=== PATIENT | male | born 1950 | race Caucasian/White ===

== ENCOUNTER → 2016-12-04 | Day surgery (SDC) | payer BC ==
[2016-11-25 15:16] VITALS: Ht 182.9 cm; Wt 129.6 kg
[~2016-12-04] VITALS: Ht 182.9 cm; Wt 129.6 kg
[~2016-12-04] MED LIST: ASCO1CAP3 PO; ASPCH81X PO; ATOR-22 PO; IRBE1TAB50 PO; LIDOCAINE HCL 2% 2 ML VIAL (20MG/ML) ONE; METO50TA16 PO; PROPOFOL IV EMULSION 10 MG/ML 20 ML VIAL IV ONE; PSYL48.59 PO; SODIUM CHLORIDE 0.9% 500ML 500 ML IV ONE
--- NOTE | 2016-12-04 12:54 | Endo History and Physical ---
History & Physical Date of Service: Dec 04, 2016. Chief Complaint: History of colon polyps Referring Physician: Dr. Rosa History of Present Illness 66 yo CM who presents for colonoscopy secondary to history of colon polyps. Past Medical History High Cholesterol Past Surgical History Hx Cardiac Surgery: No Hx Internal Defibrillator: No Hx Pacemaker: No Hx Abdominal Surgery: Yes (INGUINAL HERNIA REPAIR) Hx of Implantable Prosthesis: No Hx Post-Op Nausea and Vomiting: No Hx Cancer Surgery: No Hx Thoracic Surgery: No Hx Orthopedic: No Hx Urinary Tract Surgery: No Family History None Social History Smoking Status: Never Smoker Hx Substance Use: No Hx Alcohol Use: Yes (OCCASSIONALLY) Allergies Coded Allergies: No Known Allergies (Verified , 11/25/16) Current Medications Reported Home Medications Medications Dose Route/Sig Max Daily Dose Days Date Category Metamucil (Psyllium) 48.57 % Pow 1 Dose PO TID 11/25/16 Reported Irbesartan 300 Mg Tab 1 Tab PO QAM 90 11/25/16 Reported Lopressor (Metoprolol Tartrate) 50 Mg Tab 50 Mg PO BID 11/25/16 Reported Aspirin Chewable (Aspirin) 81 Mg Chew 81 Mg PO QPM 11/26/15 Reported Vitamin C (Ascorbic Acid) 500 Mg Cap 1 Cap PO QPM 11/26/15 Reported Lipitor (Atorvastatin Calcium) 20 Mg Tab 20 Mg PO QPM 11/04/11 Reported Vital Signs Weight (Kilograms): 129.55 Height (Feet): 6 Height (Inches): 0 Physical Exam General Appearance: WD/WN, no apparent distress Respiratory/Chest: Auscultation: breath sounds normal Cardiovascular: Heart Auscultation: RRR Abdomen: Bowel Sounds: normal Inspection & Palpation: soft, non-distended, no tenderness, guarding & rebound Assessment and Plan Assessment: 66 yo CM who presents for colonoscopy secondary to history of colon polyps. Plan: Proceed with colonoscopy.
--- NOTE | 2016-12-04 14:12 | GI REPORT ---
Procedure Date: 12/04/2016 1:18 PM Procedure: Colonoscopy Indications: High risk colon cancer surveillance: Personal history of colonic polyps Medicines: Monitored Anesthesia Care Complications: No immediate complications. Estimated Blood Loss: Estimated blood loss: none. Procedure: Pre-Anesthesia Assessment: - Prior to the procedure, a History and Physical was performed, and patient medications and allergies were reviewed. The patient's tolerance of previous anesthesia was also reviewed. The risks and benefits of the procedure and the sedation options and risks were discussed with the patient. All questions were answered, and informed consent was obtained. Prior Anticoagulants: The patient has taken aspirin, last dose was 1 day prior to procedure. ASA Grade Assessment: II - A patient with mild systemic disease. After reviewing the risks and benefits, the patient was deemed in satisfactory condition to undergo the procedure. After I obtained informed consent, the scope was passed under direct vision. Throughout the procedure, the patient's blood pressure, pulse, and oxygen saturations were monitored continuously. The scope was introduced through the anus and advanced to the terminal ileum. The colonoscopy was performed without difficulty. The patient tolerated the procedure well. The quality of the bowel preparation was good. The terminal ileum, ileocecal valve, appendiceal orifice, and rectum were photographed. Findings: A 3 mm polyp was found in the cecum. The polyp was sessile. The polyp was removed with a hot snare. Resection was complete, but the polyp tissue was not retrieved. Four sessile polyps were found in the rectum, in the transverse colon and in the ascending colon. The polyps were 5 to 7 mm in size. These polyps were removed with a hot snare. Resection and retrieval were complete. Scattered small-mouthed diverticula were found in the entire colon. Impression: - One 3 mm polyp in the cecum, removed with a hot snare. Complete resection. Polyp tissue not retrieved. - Four 5 to 7 mm polyps in the rectum, in the transverse colon and in the ascending colon, removed with a hot snare. Resected and retrieved. - Diverticulosis in the entire examined colon. Recommendation: - Resume previous diet. - Continue present medications. - Repeat colonoscopy for surveillance based on pathology results. - Return to primary care physician as previously scheduled. Tomas Dickey DO 12/04/2016 2:12:06 PM This report has been signed electronically. Note Initiated On: 12/04/2016 1:18 PM
--- NOTE | 2016-12-04 14:14 | Discharge Instructions ---
Endoscopy Patient Instructions Date / Procedure(s) Performed Dec 04, 2016. Colonoscopy Allergy Information Coded Allergies: No Known Allergies (Verified , 11/25/16) Discharge Date / Findings Dec 04, 2016. Colon polyps Diverticulosis Medication Instructions OK to resume all medications today as prescribed. Reported Home Medications Medications Dose Route/Sig Max Daily Dose Days Date Category Metamucil (Psyllium) 48.57 % Pow 1 Dose PO TID 11/25/16 Reported Irbesartan 300 Mg Tab 1 Tab PO QAM 90 11/25/16 Reported Lopressor (Metoprolol Tartrate) 50 Mg Tab 50 Mg PO BID 11/25/16 Reported Aspirin Chewable (Aspirin) 81 Mg Chew 81 Mg PO QPM 11/26/15 Reported Vitamin C (Ascorbic Acid) 500 Mg Cap 1 Cap PO QPM 11/26/15 Reported Lipitor (Atorvastatin Calcium) 20 Mg Tab 20 Mg PO QPM 11/04/11 Reported Provider Instructions Activity Restrictions - No exercising or heavy lifting for 24 hours. - Do not drink alcohol the day of the procedure. - Do not drive a car or operate machinery until the day after the procedure. - Do not make any important decisions or sign important papers in 24 hours after the procedure. Following Day: - Return to full activity which may include returning to work/school. Diet Start your diet with liquids and light foods (jello, soup, juice, toast). Then eat your usual diet if not nauseated. Treatment For Common After Affects For mild abdominal pain, bloating, or excessive gas: - Rest - Eat lightly - Lie on right side Follow-Up Information Follow-up with Moe Rosa as scheduled Anesthesia Information What You Should Know You have had a procedure that required some medicine to reduce anxiety and discomfort. This treatment is called moderate sedation. After receiving the treatment, you may be sleepy, but you will be able to breathe on your own. The effects of the treatment may last for several hours. Follow these instructions along with Activity/Diet recommendations noted above: * Do NOT do anything where dizziness or clumsiness would be dangerous. * Rest quietly at home today, then you can be up and about tomorrow. * Have a responsible person stay with you the rest of today. * You may have had an I.V. today. If so, you may take the dressing off later today. Recommendations Call your doctor if: * Trouble breathing * Continuous vomiting for more than 24 hours * Temperature above 101 degrees * Severe abdominal pain or bloating * Pain not relieved by pain medicine ordered * There is increased drainage or redness from any incision * A large amount of rectal bleeding greater than 2-3 tablespoons. (If you had a polyp/s removed or have hemorrhoids, a small amount of blood - from the rectum is to be expected.) * You have any unanswered questions or concerns. IN THE EVENT OF A SERIOUS EMERGENCY, GO TO THE NEAREST EMERGENCY ROOM Your discharge instructions were prepared by provider Tomas Dickey. Patient Instructions Signature Page Milton Donovan Patient (or Guardian) Signature/Date: I have read and understand the instructions given to me by my caregivers. Caregiver/RN/Doctor Signature/Date: The above-named patient and/or guardian has received patient instructions on this date. + Original Patient Signature Page (only) stays with chart. Please make copy for patient.
--- NOTE | 2016-12-04 14:29 | Anesthesiology Progress Note ---
Anesthesia Post Op Note Date & Time Dec 04, 2016 at 14:29 Vital Signs Pain Intensity: 0 Vital Signs Past 12 Hours Date Time Temp Pulse Resp B/P Pulse Ox O2 Delivery O2 Flow Rate FiO2 12/04/16 14:22 61 18 167/92 98 Room Air 12/04/16 14:07 64 18 128/76 95 Room Air 12/04/16 13:00 36.7 66 16 167/90 97 Room Air Notes Mental Status: alert / awake / arousable, participated in evaluation Pt Amnestic to Procedure: Yes Nausea / Vomiting: adequately controlled Pain: adequately controlled Airway Patency, RR, SpO2: stable & adequate BP & HR: stable & adequate Hydration State: stable & adequate Anesthetic Complications: no major complications apparent
[2016-12-04 14:37] VITALS: BP 155/79; PULSE 62; O2SAT 96
== END | disposition home or self-care (01) ==
LOC: C.GI 12:26
PROVIDERS: ATTEND Internal Medicine
DX: Z12.11 Encounter for screening for malignant neoplasm of colon (principal); Z86.010 Personal history of colon polyps; D12.2 Benign neoplasm of ascending colon; D12.3 Benign neoplasm of transverse colon; K62.1 Rectal polyp; K57.30 Diverticulosis of large intestine without perforation or abscess without bleeding; E78.5 Hyperlipidemia, unspecified; Z98.890 Other specified postprocedural states; Z79.82 Long term (current) use of aspirin

== ENCOUNTER → 2017-01-27 | Outpatient (CLI) | payer BC ==
[~2017-01-27] MED LIST changes: -LIDOCAINE HCL 2% 2 ML VIAL (20MG/ML) ONE; -PROPOFOL IV EMULSION 10 MG/ML 20 ML VIAL IV ONE; -SODIUM CHLORIDE 0.9% 500ML 500 ML IV ONE
--- NOTE | 2017-01-27 12:13 | DIAGNOSTIC IMAGING REPORT ---
CHEST 2 VIEWS ROUTINE CLINICAL HISTORY: R06.02 Shortness of [id number] dyspnea COMPARISON STUDY: 08/28/2016 FINDINGS: Mild stable cardiomegaly. Mild chronic elevation right hemidiaphragm. Calcified granuloma left base unchanged. No acute infiltrate. IMPRESSION: Chronic change. No acute process. Electronically signed by: Barry Trent M.D. 01/27/2017 12:11 PM Dictated Date/Time: 01/27/2017 12:11 PM
== END | disposition home or self-care (01) ==
LOC: C.RAD1850 11:41
PROVIDERS: ATTEND Physician Assistant Medical
DX: R06.02 Shortness of breath (principal)

== ENCOUNTER → 2017-02-27 | Outpatient (CLI) | payer BC ==
[~2017-02-27] MED LIST changes: +REGADENOSON 0.4 MG/5 ML SYR ONE
--- NOTE | 2017-03-02 15:07 | MYOCARDIAL PERFUSION SCAN ---
ONE-DAY NUCLEAR MEDICINE TECHNETIUM-99M CARDIOLITE MYOCARDIAL PERFUSION SCAN CLINICAL HISTORY: The patient has experienced a chest pain syndrome and has a complete left bundle branch block. COMPARISON: None. TECHNIQUE: TECHNIQUE: For the stress portion of the study, 31.1 mCi of Technetium 99 m Cardiolite IV was injected at 1:07 p.m. on 02/27/2017. Thirty minutes following the injection, imaging of the heart was performed in multiple projections. For the rest portion of the study, 10.4 mCi of Technetium 99 m Cardiolite was injected IV at 11:25 a.m. One hour following the injection, imaging of the heart was performed in the same projections. For the stress portion of the study, 0.4 mg of Lexiscan was injected intravenously as per protocol. The patient tolerated the procedure well. He was hemodynamically stable without complaints at the end of the procedure. FINDINGS: The short axis, vertical long axis, and horizontal long axis images were reviewed in detail. There is a small defect in the proximal inferior wall present at both stress and rest. This area demonstrates normal systolic function suggesting diaphragmatic attenuation rather than an old myocardial infarction. There is no evidence of myocardial ischemia. The left ventricle demonstrates normal systolic function without wall motion abnormality. The left ventricular ejection fraction is calculated at 51%. IMPRESSION: 1. No scintigraphic evidence of a myocardial infarction or myocardial ischemia. 2. Diaphragmatic attenuation noted. 3. No Lexiscan induced chest discomfort. 4. No Lexiscan induced electrocardiogram changes over the baseline abnormality. 5. Normal left ventricular systolic function with an ejection fraction of 51% without wall motion abnormality.
== END | disposition home or self-care (01) ==
LOC: C.NUCL 10:57
PROVIDERS: ATTEND Physician Assistant Medical
DX: R07.9 Chest pain, unspecified (principal); R06.02 Shortness of breath

== ENCOUNTER → 2017-03-06 | Outpatient (CLI) | payer BC ==
[~2017-03-06] MED LIST changes: -REGADENOSON 0.4 MG/5 ML SYR ONE
[2017-03-06 16:38] LABS: BASO % 0.1 %; BASO ABS # 0.01 K/uL (0-0.2); COMPLETE YES; EOS % 1.5 %; HEMATOCRIT 43.1 % (42-52); IG% 0.1 %; LYMPH % 22.1 %; LYMPH ABS # 1.63 K/uL (1.2-3.4); MEAN CELL VOLUME 91.9 fL (80-100); MEAN CORPUSCULAR HEMOGLOBIN 30.9 pg (25-34); MEAN CORPUSCULAR HGB CONC 33.6 g/dl (32-36); MEAN PLATELET VOLUME 10.2 fL (7.4-10.4); MONO % 7.6 %; NEUT % 68.6 %; PLATELET COUNT 258 K/uL (130-400); RED BLOOD COUNT 4.69 M/uL (4.7-6.1); WHITE BLOOD COUNT 7.38 K/uL (4.8-10.8)
[2017-03-06 16:55] LABS: ALT/SGPT 37 U/L (12-78); AST/SGOT 20 U/L (15-37); BLOOD UREA NITROGEN 22 mg/dl (7-18); BUN/CREATININE RATIO 22.5 (10-20); CALCIUM 9.4 mg/dl (8.5-10.1); CARBON DIOXIDE 26 mmol/L (21-32); CHLORIDE 106 mmol/L (98-107); CHOLESTEROL 137 mg/dl (0-200); CREATININE 0.96 mg/dl (0.60-1.40); GLUCOSE 85 mg/dl (70-99); POTASSIUM 4.1 mmol/L (3.5-5.1); SODIUM 140 mmol/L (136-145)
[2017-03-06 16:58] LABS: ALB/GLOB RATIO 1.3 (0.9-2); ALKALINE PHOSPHATASE 60 U/L (45-117); CHOLESTEROL/HDL RATIO 2.9; HDL CHOLESTEROL 47 mg/dl; LDL CHOLESTEROL CALCULATED 69 mg/dl; TRIGLYCERIDES 106 mg/dl (0-150); VERY LOW DENSITY LIPOPROT CALC 21 mg/dl
[2017-03-07 07:27] LABS: ESTIMATED AVERAGE GLUCOSE 103 mg/dl; HA1C FLAG Normal (Normal)
== END | disposition home or self-care (01) ==
LOC: C.LABBFT 11:25
PROVIDERS: ATTEND Physician Assistant Medical
DX: R06.02 Shortness of breath (principal); R73.01 Impaired fasting glucose; I10 Essential (primary) hypertension; E78.5 Hyperlipidemia, unspecified

== ENCOUNTER → 2017-10-07 | Outpatient (CLI) | payer BC ==
[2017-10-07 12:33] LABS: BASO % 0.1 %; BASO ABS # 0.01 K/uL (0-0.2); COMPLETE YES; EOS % 2.3 %; HEMATOCRIT 43.8 % (42-52); IG% 0.1 %; LYMPH % 25.5 %; MEAN CELL VOLUME 92.6 fL (80-100); MEAN CORPUSCULAR HEMOGLOBIN 31.7 pg (25-34); MEAN CORPUSCULAR HGB CONC 34.2 g/dl (32-36); MONO % 8.8 %; NEUT % 63.2 %; PLATELET COUNT 249 K/uL (130-400); RED BLOOD COUNT 4.73 M/uL (4.7-6.1); WHITE BLOOD COUNT 7.83 K/uL (4.8-10.8)
[2017-10-07 12:47] LABS: ALT/SGPT 33 U/L (12-78); BLOOD UREA NITROGEN 18 mg/dl (7-18); BUN/CREATININE RATIO 15.6 (10-20); CARBON DIOXIDE 30 mmol/L (21-32); CHLORIDE 104 mmol/L (98-107); CHOLESTEROL 163 mg/dl (0-200); CREATININE 1.16 mg/dl (0.60-1.40); GLUCOSE 97 mg/dl (70-99); POTASSIUM 4.2 mmol/L (3.5-5.1); SODIUM 138 mmol/L (136-145); TRIGLYCERIDES 126 mg/dl (0-150); VERY LOW DENSITY LIPOPROT CALC 25 mg/dl
[2017-10-07 12:52] LABS: ALB/GLOB RATIO 1.2 (0.9-2); ALKALINE PHOSPHATASE 56 U/L (45-117); AST/SGOT 18 U/L (15-37); HDL CHOLESTEROL 54 mg/dl; LDL CHOLESTEROL CALCULATED 84 mg/dl
[2017-10-07 12:55] LABS: ESTIMATED AVERAGE GLUCOSE 108 mg/dl; HA1C FLAG Normal (Normal)
== END | disposition home or self-care (01) ==
LOC: C.LABBFT 09:04
PROVIDERS: ATTEND Internal Medicine
DX: Z12.5 Encounter for screening for malignant neoplasm of prostate (principal); N40.0 Benign prostatic hyperplasia without lower urinary tract symptoms; E78.5 Hyperlipidemia, unspecified; I10 Essential (primary) hypertension; R73.01 Impaired fasting glucose

== ENCOUNTER → 2018-01-19 | Outpatient (CLI) | payer BC | END | disposition home or self-care (01) | LOC: C.PATHSPEC 13:17 | PROVIDERS: ATTEND Plastic Surgery | DX: C44.519 Basal cell carcinoma of skin of other part of trunk (principal) ==

== ENCOUNTER 2023-12-10 11:12 | Inpatient (IN) ==
--- NOTE | 2023-12-10 11:24 | Emergency Department Note ---
Impression & Plan Acute upper gastrointestinal bleeding, Chest pain, Anemia, Elevated troponin I level, Frequent PVCs ED Provider Note NAME: SARAHY MARIE AGE: 73 SEX: M : 1950 ARRIVES VIA: Ambulance INFORMANT: Patient, EMS ED PROVIDER(S): Jaren Hollis DO CHIEF COMPLAINT: Chest pain HPI: The patient is a 73-year-old male who presented to the emergency department for an evaluation of multiple complaints. The patient's had dizziness and lightheadedness. He is also noticed some dark stool and some rectal bleeding. He started noticing some chest pain as well. The patient arrived via ambulance. He was treated with aspirin prior to arrival. The patient states at rest he has no complaints but when he starts to exert himself he does note some shortness of breath with exertion as well as chest pain. He denies having any lower extremity swelling or pain. He does note near syncope upon standing as well. ROS: See above HPI for pertinent positives & negatives. A total of 10 systems reviewed and were otherwise negative. PAST MEDICAL HISTORY: See Below PAST SURGICAL HISTORY: See Below FAMILY HISTORY: See Below SOCIAL HISTORY: See Below HOME MEDICATIONS: See Below ALLERGIES: See Below VITALS: See Below PHYSICAL EXAMINATION: GENERAL: Patient is awake alert in no acute distress patient is resting comfortably and showing no signs of anxiety EYES: The conjunctivae are clear. The pupils are round and reactive. EARS, NOSE, MOUTH AND THROAT: The nose is without any evidence of any deformity. NECK: The neck is nontender and supple. RESPIRATORY: Normal respiratory effort is noted there is no evidence of wheezing rhonchi or rales CARDIOVASCULAR: Ectopy was noted to auscultation. There is no definite murmur. GASTROINTESTINAL: The abdomen is soft. Abdomen is nontender. Rectal exam revealed dark stool which was strongly heme positive. PELVIS: The Pelvis is stable. No tenderness to palpation is noted. BACK: No midline tenderness or or step-off noted range of motion in flexion extension as well as rotation no signs of muscle spasm noted MUSCULOSKELETAL/EXTREMITIES: There is no evidence of gross deformity full range of motion is noted in the hips and shoulders. SKIN: There is no obvious evidence of any rash. There are no petechiae, pallor or cyanosis noted. NEUROLOGIC: Patient is awake alert and oriented x3 MEDICAL DECISION MAKING: The patient is a 73-year-old male who presented to the emergency department for an evaluation of chest pain. The patient describes exertional chest pain as well as shortness of breath. He was treated with a cardiac protocol by the EMS personnel prior to arrival. He did receive aspirin. During my evaluation the patient stated that he was having some dark stool. This was found to be strongly heme positive. I do feel the patient is most likely having some anemia which is causing his exertional chest pain as well as shortness of breath. I discussed patient's laboratory and radiographic studies with him. Abdominal exam was not consistent with an acute surgical abdomen. He was treated with Protonix as well as Pepcid in the emergency department. I discussed patient's condition with the on-call [facility] hospitalist. Likely the patient will require further inpatient management to evaluate the cause of his symptoms. Triage Nursing notes reviewed. Prior medical records reviewed Vital Signs: reviewed and remarkable for no significant abnormalities Differential diagnosis: Cardiac ischemia, aortic dissection, pulmonary embolism, pneumothorax, pneumonia, pericarditis, myocarditis, esophageal rupture, GERD, cholecystitis, pancreatitis, musculoskeletal, as well as other pathologies. ER treatment provided: See below Diagnostics interpreted by me: ECG: EKG was obtained in the emergency department. My interpretation is sinus rhythm at 90 bpm. Left bundle branch block pattern was noted. PVCs as well as fusion beats were noted. This was compared to a tracing from August 28, 2016. The left bundle branch block pattern is not new. EKG was obtained from the prehospital personnel. My interpretation is sinus rhythm at 101 bpm. PVCs were noted. Left bundle branch block pattern was noted. This compares similar to the tracing obtained in the emergency department. Cardiac Monitoring: An order was placed for continuous cardiac monitoring. The monitor shows a rate of 99 bpm with sinus rhythm and frequent PVCs. Laboratory studies: As stated above and show below. Imaging studies: See below. Radiographic imaging was reviewed by myself Consultation(s): I discussed this case with Dr. Donovan who [facility]. Past Med/Surg History Medical History Hyperlipidemia Hypertension Colon polyps HX, BENIGN Surgical History H/O colonoscopy (~12/04/16) repeat in 5 years History of hernia repair Family History Father Coronary heart disease CHF (congestive heart failure) Mother Brain cancer Sister Cancer Brother No problems noted. Son Myocardial infarction, Onset Age: 43 from AMI age 50 Cancer esophageal Denies family history of Ovarian cancer Prostate cancer Breast cancer Colorectal cancer Social History Smoking Status: Unknown if ever smoked Second Hand Exposure: Yes; Do You Dip or Chew Tobacco: No; Hx Alcohol Use: Yes Alcohol type: beer Alcohol Intake Frequency Comment: 2-3 beers per week Hx Substance Use: No Preferred Language: Mosotho Communication Ability: Effective Visual Impairment: No Limitations Hearing Ability: Normal Packing Line Operator Required: No Beliefs That Will Affect Care: None marital status: Current Living Situation: Alone current occupational status: retired Feels Safe at Home: Yes Childhood Exposure to Second-Hand Smoke: Yes Dental Care, Regularly: Yes Physical Activity Frequency: Daily Physical Activity Frequency Comment: walking or bicycle 60 minutes per workout Seatbelt Use: always Sunscreen Use: No Assistive Devices: Glasses Allergies Allergies Allergy/AdvReac Type Severity Reaction Status Date / Time No Known Allergies Allergy Verified 12/10/23 13:50 Home Meds Home Medications Medication Instructions Recorded Confirmed ascorbic acid (vitamin C) 100 mg 100 mg PO QAM 11/17/19 12/10/23 tablet multivitamin (Daily Multi-Vitamin 1 tab PO QAM 11/17/19 12/10/23 tablet) fluoride (sodium) 1.1 % dental 1 applic dental BID 09/09/23 12/10/23 paste acetaminophen-caffeine 500 mg-65 1 tab PO Q6H PRN Headache 12/10/23 12/10/23 mg tablet Previous Rx's Medication Instructions Recorded atorvastatin 20 mg tablet 20 mg PO QPM #90 tabs 04/10/23 irbesartan 300 mg tablet 300 mg PO QAM #90 tabs 04/10/23 metoprolol tartrate 50 mg tablet 50 mg PO BID #180 tabs 04/10/23 Results & Data (ED) Vital Signs Vital Signs - 24 hr 12/10/23 11:16 12/10/23 11:18 12/10/23 11:51 Temperature 36.7 C Temperature Source Oral Pulse Rate 95 H 96 H 101 H Pulse Rate [Apical] Respiratory Rate 16 20 Respiratory Effort / Characteristics Non-Labored Spontaneous Respiratory Depth Normal Respiratory Pattern Regular Blood Pressure 117/87 Blood Pressure [Right Arm] Blood Pressure Mean 97 Blood Pressure Mean [Right Arm] Blood Pressure Position Lying Blood Pressure Position [Right Arm] Pulse Oximetry 99 99 Oxygen Delivery Method Room Air Room Air Sepsis Recent Fever Within 48 Hours No Sepsis New/Unexplained Change in Mental Status No Sepsis Action Taken by Nursing No Action Required 12/10/23 12:09 12/10/23 12:13 Temperature Temperature Source Pulse Rate Pulse Rate [Apical] 99 H Respiratory Rate 20 Respiratory Effort / Characteristics Respiratory Depth Respiratory Pattern Blood Pressure Blood Pressure [Right Arm] 127/79 Blood Pressure Mean Blood Pressure Mean [Right Arm] 95 Blood Pressure Position Blood Pressure Position [Right Arm] Sitting Pulse Oximetry 98 96 Oxygen Delivery Method Room Air Room Air Sepsis Recent Fever Within 48 Hours Sepsis New/Unexplained Change in Mental Status Sepsis Action Taken by Fpc Medications Current Medication List: was personally reviewed by me Laboratory Data Attestation: I reviewed the patient's lab results. 12/10/23 11:32 12/10/23 11:32 Lab Results 12/10/23 12/10/23 12/10/23 Range/Units 11:32 13:46 13:55 WBC 16.61 H (4.8-10.8) K/ul RBC 3.41 L (4.70-6.10) M/uL Hgb 10.7 L (14.0-18.0) g/dl Hct 31.3 L (42.0-52.0) % MCV 91.8 (80.0-100.0) fL MCH 31.4 (25.0-34.0) pg MCHC 34.2 (32.0-36.0) g/dL RDW Std Deviation 43.2 (36.4-46.3) fL RDW Coeff of [place] 13.1 (11.5-14.5) % Plt Count 256 (130-400) K/uL MPV 10.2 (9.4-12.4) fL Immature Gran % (Auto) 0.7 % Neut % (Auto) 87.2 % Lymph % (Auto) 7.8 % [place] % (Auto) 4.1 % Eos % (Auto) 0.0 % Baso % (Auto) 0.2 % Neut # (Auto) 14.49 H (1.40-6.50) K/uL Lymph # (Auto) 1.29 (1.20-3.40) K/uL [place] # (Auto) 0.68 H (0.11-0.59) K/uL Eos # (Auto) 0.00 (0.00-0.50) K/uL Baso # (Auto) 0.04 (0.00-0.20) K/uL Immature Gran # (Auto) 0.11 (0.01-0.20) K/uL PT 11.3 (9.0-12.0) Seconds INR 1.0 (0.9-1.1) APTT 21 (21-31) Seconds PTT Ratio 0.7 Sodium 137 (136-145) mmol/L Potassium 4.3 (3.5-5.1) mmol/L Chloride 106 (98-107) mmol/L Carbon Dioxide 22 (21-32) mmol/L Anion Gap 9 (3-11) BUN 56 H (6-23) mg/dl Creatinine 1.23 (0.6-1.4) mg/dl Est Cr Clr Drug Dosing 71.6 ml/min Est GFR ( Amer) 66.6 ml/min Est GFR (Non-Af Amer) 57.5 ml/min BUN/Creatinine Ratio 45.5 H (10-20) Glucose 159 H (70-99(Fasting)) mg/dl Calcium 8.9 (8.6-10.3) mg/dl Magnesium 2.0 (1.7-2.4) mg/dl Total Bilirubin 0.7 (0.2-1.0) mg/dl AST 16 (13-39) U/L ALT 17 (7-52) U/L Alkaline Phosphatase 48 (34-104) U/L Troponin I High Sens 21.1 H 22.7 H (0-20) pg/ml Total Protein 6.4 (6.0-8.3) gm/dl Albumin 4.1 (3.4-5.0) gm/dl Globulin 2.3 L (2.5-4.0) gm/dl Albumin/Globulin Ratio 1.8 (0.9-2) Lipase 26 (11-82) U/L Urine Color Yellow Urine Appearance Clear (Clear) Urine pH 5.0 (4.5-7.5) Ur Specific [place] 1.024 (1.000-1.030) Urine Protein Negative (Negative) Urine Glucose (UA) Negative (Negative) Urine Ketones Trace H (Negative) Urine Blood Negative (Negative) Urine Nitrite Negative (Negative) Urine Bilirubin Negative (Negative) Urine Urobilinogen Negative (Negative) Ur Leukocyte Esterase 1+ H (Negative) Urine WBC (Auto) 1-5 (0-5) /hpf Urine RBC (Auto) 0-4 (0-4) /hpf U Hyaline Cast (Auto) 1-5 (0-5) /lpf U Epithel Cells (Auto) 10-20 H (0-5) /lpf Urine Bacteria (Auto) Negative (Negative) Blood Type A Positive Antibody Screen NEGATIVE Administered Medications Discontinued Medications Pantoprazole Sodium 40 mg/ (Syringe) 10 mls @ 5 mls/min IV NOW ONE Stop: 12/10/23 11:52 Last Admin: 12/10/23 12:02 Dose: 5 mls/min Documented By: CPB Famotidine (Pepcid 20mg Iv Push) 20 mg in 5 mls @ 2.5 mls/min IV NOW STA Stop: 12/10/23 11:52 Last Admin: 12/10/23 12:02 Dose: 2.5 mls/min Documented By: CPB Imaging Data Attestation: I personally reviewed and interpreted this imaging study as follows: My Impression: 1 view chest x-ray was obtained in the emergency department. My interpretation is no free air, final report below. Radiologist's Impression: Chest X-Ray 12/10/23 12:08 SINGLE VIEW CHEST CLINICAL HISTORY: Atypical chest pain. FINDINGS: An AP, portable, upright chest radiograph is compared to study dated 08/28/2016. The heart is enlarged. The pulmonary vasculature is noncongested. Chronic interstitial thickening is similar to previous. There is chronic elevation of the right hemidiaphragm with mild bibasilar scarring/atelectasis. A calcified granuloma is seen in the left lower lung. No airspace consolidation or large pleural effusion is identified. No pneumothorax is seen. The skeletal structures are osteopenic. The bony thorax is grossly intact. IMPRESSION: Cardiomegaly with no active disease in the chest. ACT 112: Negative or not required by law. Electronically signed by: Eugenio Frias M.D. 12/10/2023 12:41 PM Discharge Plan Visit Data Chief Complaint: Chest Pain Stated Complaint: SOB ED Provider: Jaren Hollis Discharge Problem: Acute upper gastrointestinal bleeding, Chest pain, Anemia, Elevated troponin I level, Frequent PVCs Patient Disposition: Being Evaluated by Hospitalist Forms Stand Alone Forms: [facility] Prescriptions Prescriptions: No Action atorvastatin 20 mg tablet 20 mg PO QPM Qty: 90 3RF irbesartan 300 mg tablet 300 mg PO QAM Qty: 90 3RF metoprolol tartrate 50 mg tablet 50 mg PO BID Qty: 180 3RF fluoride (sodium) 1.1 % paste 1 applic dental BID multivitamin [Daily Multi-Vitamin] Tablet 1 tab PO QAM ascorbic acid (vitamin C) 100 mg tablet 100 mg PO QAM Headache Relief (acetam-caff) 500-65 mg Tablet 1 tab PO Q6H PRN (Reason: Headache) Referrals Referrals: Art Alatorre DO [Primary Care Provider] - Discharge Problem: Chest pain Qualifiers: Chest pain type: unspecified Qualified Code(s): R07.9 - Chest pain, unspecified Anemia Qualifiers: Anemia type: unspecified type Qualified Code(s): D64.9 - Anemia, unspecified
[2023-12-10 11:53] LABS: Basophils # (auto) 0.04 K/uL (0.00-0.20); Basophils % (auto) 0.2 %; Hematocrit (blood only) 31.3 % (42.0-52.0); Hemoglobin 10.7 g/dl (14.0-18.0); Immature Granulocytes # (auto) 0.11 K/uL (0.01-0.20); Immature Granulocytes % (auto) 0.7 %; Lymphocytes # (auto) 1.29 K/uL (1.20-3.40); Lymphocytes % (auto) 7.8 %; Mean Corpuscular Hemoglobin 31.4 pg (25.0-34.0); Mean Corpuscular Hgb Conc 34.2 g/dL (32.0-36.0); Mean Corpuscular Volume 91.8 fL (80.0-100.0); Mean Platelet Volume 10.2 fL (9.4-12.4); Monocytes # (auto) 0.68 K/uL (0.11-0.59); Monocytes % (auto) 4.1 %; Neutrophils # (auto) 14.49 K/uL (1.40-6.50); Neutrophils % (auto) 87.2 %; Platelet Count 256 K/uL (130-400); RDW Coefficient of Variation 13.1 % (11.5-14.5); RDW Standard Deviation 43.2 fL (36.4-46.3); Red Blood Count 3.41 M/uL (4.70-6.10); White Blood Count 16.61 K/ul (4.8-10.8)
[2023-12-10] MEDS: FAMOTIDINE 20MG IV PUSH 20 MG/5 ML SYR IV STA (12:02)
[2023-12-10] MEDS: PANTOprazole 40 MG in SYRINGE 0 ML IV ONE ×2 (12:02→15:54)
[2023-12-10 12:16] LABS: Albumin Globulin Ratio 1.8 (0.9-2); Albumin Level 4.1 gm/dl (3.4-5.0); BUN Creatinine Ratio 45.5 (10-20); Bilirubin,Total 0.7 mg/dl (0.2-1.0); Calcium 8.9 mg/dl (8.6-10.3); Creatinine Clr Calc Pharmacy 71.6 ml/min; Est GFR (African American) 66.6 ml/min; Est GFR (Non-African American) 57.5 ml/min; Globulin 2.3 gm/dl (2.5-4.0); Potassium 4.3 mmol/L (3.5-5.1); Total Protein 6.4 gm/dl (6.0-8.3)
[2023-12-10 12:19] LABS: Troponin I High Sensitivity 21.1 pg/ml (0-20)
[2023-12-10 12:22] LABS: Partial Thromboplastin Ratio 0.7; Partial Thromboplastin Time 21 Seconds (21-31); Prothrombin Time 11.3 Seconds (9.0-12.0)
--- NOTE | 2023-12-10 12:42 | XRay Report ---
SINGLE VIEW CHEST CLINICAL HISTORY: Atypical chest pain. FINDINGS: An AP, portable, upright chest radiograph is compared to study dated 08/28/2016. The heart is enlarged. The pulmonary vasculature is noncongested. Chronic interstitial thickening is similar to previous. There is chronic elevation of the right hemidiaphragm with mild bibasilar scarring/atelect asis. A calcified granuloma is seen in the left lower lung. No airspace consolidation or large pleura l effusion is identified. No pneumothorax is seen. The skeletal structures are osteopenic. The bony t horax is grossly intact. IMPRESSION: Cardiomegaly with no active disease in the chest. ACT 112: Negative or not required by law. Electronically signed by: Eugenio Frias M.D. 12/10/2023 12:41 PM
--- NOTE | 2023-12-10 13:53 | Electrocardiogram Report ---
Test Reason : Blood Pressure : / mmHG Vent. Rate : 098 BPM Atrial Rate : 098 BPM P-R Int : 154 ms QRS Dur : 148 ms QT Int : 388 ms P-R-T Axes : 054 -48 124 degrees QTc Int : 495 ms Sinus rhythm with Premature supraventricular complexes and Premature ventricular complexes or Fusion complexes Left axis deviation Left bundle branch block Abnormal ECG When compared with ECG of 28-AUG-2016 11:36, Fusion complexes are now Present Premature ventricular complexes are now Present Premature supraventricular complexes are now Present Confirmed by Tyrel Abdalla ([id number]) on 12/10/2023 1:53:27 PM Referred By: REFERRED SELF Confirmed By:Tyrel Abdalla
[2023-12-10 14:06] LABS: Appearance Urine Clear (Clear); Bacteria Urine Automated Negative (Negative); Bilirubin Urine Negative (Negative); Blood Urine Negative (Negative); Color Urine Yellow; Glucose Urine UA Negative (Negative); Ketones Urine Trace (Negative); Leukocyte Esterase Urine 1+ (Negative); Nitrite Urine Negative (Negative); Protein Urine Negative (Negative); RBC Urine Automated 0-4 /hpf (0-4); Specific Gravity Urine 1.024 (1.000-1.030); Urobilinogen Urine Negative (Negative)
--- NOTE | 2023-12-10 14:21 | History & Physical Report ---
Date of Service December 10, 2023 Assessment & Plan (1) Acute upper gastrointestinal bleeding: Plan: Suspected based on melena and new anemia Pantoprazole 40 mg IV BID NPO Consult gastroenterology (2) Acute blood loss anemia: Plan: H&H q.6 hourly Transfuse < 7 (3) Paroxysmal atrial fibrillation: Plan: New onset No anticoagulation due to concurrent acute GI bleed Rate control with metoprolol 5 mg IV now and then restart his usual metoprolol tartrate which he missed this morning TSH and TTE in AM (4) Non-sustained ventricular tachycardia: Plan: TTE (5) Hyperlipidemia: Plan: Continue atorvastatin (6) Hypertension: Plan: Hold irbesartan in setting of GI bleed Continue metoprolol for rate control Plan VTE Prophyalxis - chemical contraindicated Diet - NPO Disposition - admit to med/tele Admission and Anticipated Discharge Date Admission Date: Dec 10, 2023 History of Present Illness Chief Complaint: Melena Primary Care Provider: Art Alatorre DO Milton Donovan is a 73 year old male who presents to the ER with dark diarrhea and red blood. Started yesterday but more today with associated lightheadedness. No prior GI bleed / ulcer. Reports having heartburn about once a month but doesn't take anything for this. Took ibuprofen a few days ago but arhtritis pain but nothing regularly. Taking a headache pill from [facility] which is suspected to contain aspirin and caffeine every few days. He reports a mild chest pressure when EMS arrived and he was given aspirin by EMS. No recent change in diet. He missed his medications this morning. While being admitted his rhythm changed to have runs of non sustained ventricular tachycardia and atrial fibrillation with rapid ventricular rate. He denied any significant symptoms in these rhythms. Allergies Allergy/AdvReac Type Severity Reaction Status Date / Time No Known Allergies Allergy Verified 12/10/23 13:50 Home Medications Medication Instructions Recorded Confirmed Type ascorbic acid (vitamin C) 100 mg 100 mg PO QAM 11/17/19 12/10/23 History tablet multivitamin (Daily Multi-Vitamin 1 tab PO QAM 11/17/19 12/10/23 History tablet) atorvastatin 20 mg tablet 20 mg PO QPM #90 tabs 04/10/23 12/10/23 Rx irbesartan 300 mg tablet 300 mg PO QAM #90 tabs 04/10/23 12/10/23 Rx metoprolol tartrate 50 mg tablet 50 mg PO BID #180 tabs 04/10/23 12/10/23 Rx fluoride (sodium) 1.1 % dental 1 applic dental BID 09/09/23 12/10/23 History paste acetaminophen-caffeine 500 mg-65 1 tab PO Q6H PRN Headache 12/10/23 12/10/23 History mg tablet Past Med/Surg History Medical History Hyperlipidemia Hypertension Colon polyps HX, BENIGN Surgical History H/O colonoscopy (~12/04/16) repeat in 5 years History of hernia repair Family History Father Coronary heart disease CHF (congestive heart failure) Mother Brain cancer Sister Cancer Brother No problems noted. Son Myocardial infarction, Onset Age: 43 from AMI age 50 Cancer esophageal Denies family history of Ovarian cancer Prostate cancer Breast cancer Colorectal cancer Social History Smoking Status: Never smoker Second Hand Exposure: No; Do You Dip or Chew Tobacco: No; Tobacco Cessation Education Requested by Patient: No Hx Alcohol Use: Yes Alcohol type: beer Alcohol Intake Frequency Comment: 2-3 beers per week Hx Substance Use: No Preferred Language: Lithuanian Communication Ability: Effective Visual Impairment: No Limitations Hearing Ability: Normal Metal Fabricator Helper Required: No Beliefs That Will Affect Care: None marital status: Current Living Situation: Alone current occupational status: retired Other Information That Helps Us Care for You: No Feels Safe at Home: Yes Safety Concerns: Feels Safe At This Time Childhood Exposure to Second-Hand Smoke: Yes Dental Care, Regularly: Yes Physical Activity Frequency: Daily Physical Activity Frequency Comment: walking or bicycle 60 minutes per workout Seatbelt Use: always Sunscreen Use: No Assistive Devices: Glasses Review of Systems Review of Systems: All systems reviewed & are unremarkable except as noted in HPI & below Physical Exam Constitutional: WD/WN, vitals as above Eyes: PERRL, conjunctivae normal, anicteric sclerae ENMT: external ear and nose normal, oropharynx normal Respiratory: normal respiratory effort, lungs clear to auscultation Cardiovascular: RRR, no murmur, no edema Gastrointestinal (Abdomen): normal bowel sounds, soft, nontender, no hepat osplenomegaly Musculoskeletal: no cyanosis or clubbing, extremities motor strength 5/5 Skin: no rashes, warm and dry Neurologic: moves all extremities and awake; not confused Psychiatric: A+Ox3, euthymic affect Results & Data Results & Data Vital Signs (Past 12 Hours) Vital Signs Temp Pulse Pulse Resp BP BP Pulse Ox 12/10/23 12:13 99 H 20 127/79 96 12/10/23 12:09 98 12/10/23 11:51 101 H 12/10/23 11:18 96 H 20 99 12/10/23 11:16 36.7 C 95 H 16 117/87 99 O2 Del Method 12/10/23 12:13 Room Air 12/10/23 12:09 Room Air 12/10/23 11:51 12/10/23 11:18 Room Air 12/10/23 11:16 Room Air Laboratory Results Abnormal lab results 12/10/23 12/10/23 Range/Units 11:32 13:46 WBC 16.61 H (4.8-10.8) K/ul RBC 3.41 L (4.70-6.10) M/uL Hgb 10.7 L (14.0-18.0) g/dl Hct 31.3 L (42.0-52.0) % Neut # (Auto) 14.49 H (1.40-6.50) K/uL [place] # (Auto) 0.68 H (0.11-0.59) K/uL BUN 56 H (6-23) mg/dl BUN/Creatinine Ratio 45.5 H (10-20) Glucose 159 H (70-99(Fasting)) mg/dl Troponin I High Sens 21.1 H (0-20) pg/ml Globulin 2.3 L (2.5-4.0) gm/dl Urine Ketones Trace H (Negative) Ur Leukocyte Esterase 1+ H (Negative) U Epithel Cells (Auto) 10-20 H (0-5) /lpf Diagnostic Findings SINGLE VIEW CHEST CLINICAL HISTORY: Atypical chest pain. FINDINGS: An AP, portable, upright chest radiograph is compared to study dated 08/28/2016. The heart is enlarged. The pulmonary vasculature is noncongested. Chronic interstitial thickening is similar to previous. There is chronic elevation of the right hemidiaphragm with mild bibasilar scarring/atelectasis. A calcified granuloma is seen in the left lower lung. No airspace consolidation or large pleural effusion is identified. No pneumothorax is seen. The skeletal structures are osteopenic. The bony thorax is grossly intact. IMPRESSION: Cardiomegaly with no active disease in the chest. Medications Administered ER medications given: Pantoprazole 40 mg IV Famotidine 20 mg IV ECG Rate (beats per minute): 98 Rhythm: normal sinus Findings: + LBBB and + PVC Comparison ECG Date: from (August 28, 2016) Change: the following changes noted (PVCs and premature supraventricular complexes now presents, left bundle branch block is old) Code Status & VTE Plan Code Status Full VTE Prophylaxis Plan VTE Prophylaxis will be ordered: No PG Care Time/CCT Total # of Minutes Spent Total Time Spent with Patient: Total time spent is greater than 50% in coordination of care (as documented) at patient's floor/unit and/or counseling patient: Coding Level of Care Code 10145 INT INP/OBS CARE 3/75MIN Diagnoses Acute upper gastrointestinal bleeding K92.2 Acute blood loss anemia D62 Paroxysmal atrial fibrillation I48.0 Non-sustained ventricular tachycardia I47.29 Hyperlipidemia E78.5 Hypertension I10
[2023-12-10] MEDS: METOPROLOL TARTRATE 1 MG/ML VIAL IV STA (17:21)
[2023-12-10] MEDS: METOPROLOL TARTRATE 1 MG/ML VIAL IV ONE (17:21)
[2023-12-10] MEDS: METOPROLOL TARTRATE 50 MG TAB PO STA (17:36)
[2023-12-10] MEDS: ACETAMINOPHEN 1,000 MG/100 ML VIAL IV STA (17:47)
[2023-12-10 18:09] LABS: Hematocrit (blood only) 27.1 % (42.0-52.0); Hemoglobin 9.6 g/dl (14.0-18.0)
[2023-12-10] MEDS: LACTATED RINGER'S 1,000 ML IV SCH (18:36)
[2023-12-10] MEDS: METOPROLOL TARTRATE 50 MG TAB PO SCH (21:55)
[2023-12-10] MEDS: ATORVASTATIN 20 MG TAB PO SCH (21:55)
[2023-12-10] MEDS: PANTOprazole 40 MG in SYRINGE 0 ML IV SCH (21:55)
[2023-12-11 01:07] LABS: Hemoglobin 8.4 g/dl (14.0-18.0)
[2023-12-11 06:38] LABS: Basophils # (auto) 0.03 K/uL (0.00-0.20); Basophils % (auto) 0.2 %; Eosinophils # (auto) 0.01 K/uL (0.00-0.50); Eosinophils % (auto) 0.1 %; Hematocrit (blood only) 21.9 % (42.0-52.0); Hemoglobin 7.3 g/dl (14.0-18.0); Immature Granulocytes # (auto) 0.08 K/uL (0.01-0.20); Immature Granulocytes % (auto) 0.6 %; Lymphocytes # (auto) 2.06 K/uL (1.20-3.40); Lymphocytes % (auto) 14.7 %; Mean Corpuscular Hemoglobin 31.1 pg (25.0-34.0); Mean Corpuscular Hgb Conc 33.3 g/dL (32.0-36.0); Mean Corpuscular Volume 93.2 fL (80.0-100.0); Mean Platelet Volume 10.4 fL (9.4-12.4); Monocytes # (auto) 1.04 K/uL (0.11-0.59); Monocytes % (auto) 7.4 %; Neutrophils # (auto) 10.84 K/uL (1.40-6.50); Nucleated RBC # (auto) 0.02 K/uL (0.00-0.12); Nucleated RBC % (auto) 0.1 %; Platelet Count 209 K/uL (130-400); RDW Coefficient of Variation 13.5 % (11.5-14.5); RDW Standard Deviation 44.4 fL (36.4-46.3); Red Blood Count 2.35 M/uL (4.70-6.10); White Blood Count 14.06 K/ul (4.8-10.8)
[2023-12-11 06:51] LABS: BUN Creatinine Ratio 41.2 (10-20); Calcium 8.4 mg/dl (8.6-10.3); Creatinine Clr Calc Pharmacy 72.1 ml/min; Est GFR (African American) 69.3 ml/min; Est GFR (Non-African American) 59.8 ml/min; Potassium 4.5 mmol/L (3.5-5.1)
[2023-12-11 07:02] LABS: Thyroid Stimulating Hormone 2.281 uIu/ml (0.300-4.500)
[2023-12-11 07:38] LABS: Polychromasia 1+
[2023-12-11] MEDS: ACETAMINOPHEN 1,000 MG/100 ML VIAL IV PRN (07:40)
[2023-12-11] MEDS: PERFLUTREN LIPID MICROSPHERE (DEFINITY) IV ONE (09:00)
--- NOTE | 2023-12-11 10:32 | Gastrointestinal Consultation ---
Date of Consultation December 11, 2023 Assessment & Plan (1) Anemia: Discussed case with Dr. Garvey who advised on plan. - set patient up for an EGD today to evaluate. keep NPO. risks/benefits of EGD discussed with the patient and he wishes to proceed. - avoid nsaid use. - continue with protonix 40mg bid. - follow hgb/hct and transfuse as needed. Supervising Physician Co-Signing Physician Notes I saw the patient and agree with the findings as documented by YURIDIA Aquino History of Present Illness Reason for Consultation: Acute blood loss anemia, GIB Requesting Physician: Leonidas Donovan MD Attending Physician: Paco Lim History of Present Illness Patient is a 73 year old male who presented to the ED yesterday with complaints of dizziness and lightheadedness. He tells me that about 2 days ago he noticed a change in his bowels where he was having loose, dark stools. He denies any nausea, vomiting, heartburn, abdominal pain. Upon evaluation in the ED his hgb was 10.7 and since he has been here his hgb has dropped to 7.3. In the ED he had a rectal exam with heme positive stools. he tells me that since admission he has had 6-7 more dark stools. He tells me that he had used some ibuprofen a few weeks ago for hip pain but that he does not typically use nsaids. he denies any chest pain or shortness of breath. he denies having had an EGD in the past. Last colonoscopy in 2021 shown tubular adenoma colon polyp, internal hemorrhoids, and diverticulosis. Allergies Allergy/AdvReac Type Severity Reaction Status Date / Time No Known Allergies Allergy Verified 12/10/23 13:50 Home Medications Medication Instructions Recorded Confirmed Type ascorbic acid (vitamin C) 100 mg 100 mg PO QAM 11/17/19 12/10/23 History tablet multivitamin (Daily Multi-Vitamin 1 tab PO QAM 11/17/19 12/10/23 History tablet) atorvastatin 20 mg tablet 20 mg PO QPM #90 tabs 04/10/23 12/10/23 Rx irbesartan 300 mg tablet 300 mg PO QAM #90 tabs 04/10/23 12/10/23 Rx metoprolol tartrate 50 mg tablet 50 mg PO BID #180 tabs 04/10/23 12/10/23 Rx fluoride (sodium) 1.1 % dental 1 applic dental BID 09/09/23 12/10/23 History paste acetaminophen-caffeine 500 mg-65 1 tab PO Q6H PRN Headache 12/10/23 12/10/23 History mg tablet Patient History Medical History Hyperlipidemia Hypertension Colon polyps HX, BENIGN Surgical History H/O colonoscopy (~12/04/16) repeat in 5 years History of hernia repair Family History Father Coronary heart disease CHF (congestive heart failure) Mother Brain cancer Sister Cancer Brother No problems noted. Son Myocardial infarction, Onset Age: 43 from AMI age 50 Cancer esophageal Denies family history of Ovarian cancer Prostate cancer Breast cancer Colorectal cancer Social History Smoking Status: Never smoker Second Hand Exposure: No; Do You Dip or Chew Tobacco: No; Tobacco Cessation Education Requested by Patient: No Hx Alcohol Use: Yes Alcohol type: beer Alcohol Intake Frequency Comment: 2-3 beers per week Hx Substance Use: No Preferred Language: Russian Communication Ability: Effective Visual Impairment: No Limitations Hearing Ability: Normal Line O Scribe Operator Required: No Beliefs That Will Affect Care: None marital status: Current Living Situation: Alone current occupational status: retired Other Information That Helps Us Care for You: No Feels Safe at Home: Yes Safety Concerns: Feels Safe At This Time Childhood Exposure to Second-Hand Smoke: Yes Dental Care, Regularly: Yes Physical Activity Frequency: Daily Physical Activity Frequency Comment: walking or bicycle 60 minutes per workout Seatbelt Use: always Sunscreen Use: No Assistive Devices: Glasses Review of Systems Review of Systems: All systems reviewed & are unremarkable except as noted in HPI & below Physical Exam Constitutional: WD/WN, vitals as above Respiratory: normal respiratory effort, lungs clear to auscultation Cardiovascular: RRR, no murmur, no edema Gastrointestinal (Abdomen): normal bowel sounds, soft, nontender, no hepatosplenomegaly Skin: no rashes, warm and dry Psychiatric: Orientation: alert and oriented x 3 Affect: euthymic affect Results & Data Vital Signs (Past 12 Hours) Vital Signs Temp Pulse Pulse Pulse Resp BP BP 12/11/23 08:32 98.2 F 92 H 16 116/69 12/11/23 03:41 98.1 F 85 20 114/70 12/10/23 23:59 83 12/10/23 23:58 79 12/10/23 23:10 98.8 F 76 18 94/60 L Pulse Ox O2 Del Method 12/11/23 08:32 97 Room Air 12/11/23 03:41 95 Room Air 12/10/23 23:59 12/10/23 23:58 12/10/23 23:10 96 Room Air PG Care Time/CCT Total # of Minutes Spent Total Time Spent with Patient: Total time spent is greater than 50% in coordination of care (as documented) at patient's floor/unit and/or counseling patient: Coding Level of Care Code 28354 INT INP/OBS CARE 2/55MIN Diagnoses Anemia D64.9 Anemia type: unspecified type (1) Anemia Anemia type: unspecified type Qualified Code(s): D64.9 - Anemia, unspecified
--- NOTE | 2023-12-11 10:49 | Electrocardiogram Report ---
Test Reason : Blood Pressure : / mmHG Vent. Rate : 134 BPM Atrial Rate : 000 BPM P-R Int : 000 ms QRS Dur : 140 ms QT Int : 308 ms P-R-T Axes : 000 -41 130 degrees QTc Int : 459 ms Atrial fibrillation with rapid ventricular response with premature ventricular or aberrantly conducte d complexes Left axis deviation Left bundle branch block Abnormal ECG When compared with ECG of 10-DEC-2023 11:18, Atrial fibrillation has replaced Sinus rhythm HR has increased by 36 bpm Confirmed by Tyrel Abdalla ([id number]) on 12/11/2023 10:48:29 AM Referred By: REFERRED SELF Confirmed By:Tyrel Abdalla
--- NOTE | 2023-12-11 11:00 | Electrocardiogram Report ---
Test Reason : Blood Pressure : / mmHG Vent. Rate : 074 BPM Atrial Rate : 074 BPM P-R Int : 158 ms QRS Dur : 146 ms QT Int : 436 ms P-R-T Axes : 043 -43 130 degrees QTc Int : 483 ms Normal sinus rhythm Left axis deviation Left bundle branch block Abnormal ECG When compared with ECG of 10-DEC-2023 17:16, Sinus rhythm has replaced Atrial fibrillation Vent. rate has decreased BY 60 BPM Confirmed by Tyrel Abdalla ([id number]) on 12/11/2023 11:00:13 AM Referred By: REFERRED SELF Confirmed By:Tyrel Abdalla
--- NOTE | 2023-12-11 12:16 | XCELERA ---
[id number]
--- NOTE | 2023-12-11 13:22 | Anesthesiology Consultation ---
Date of Service December 11, 2023 Assessment & Plan Chart Review Chart Review: Acceptable Risk for Surgery and Patient NOT seen in Pre Admission Testing Consults Requested none ASA ASA2 Proposed Anesthesia Anesthesia Type: MAC Risk / Benefits Reviewed With: PT / POA / Parent / Guardian, Accepts Plan and Informed Consent Obtained History Surgery Operation Date: 12/11/23 16:30 Proposed Procedures p Esophagogastroduodenoscopy Dr. Guru Garvey MD Height/Weight Height: 6 ft Weight: 117.7 kg Allergies Allergy/AdvReac Type Severity Reaction Status Date / Time No Known Allergies Allergy Verified 12/10/23 13:50 Medications Home Medications Medication Instructions Recorded Confirmed Last Taken ascorbic acid (vitamin C) 100 mg 100 mg PO QAM 11/17/19 12/10/23 12/09/23 tablet multivitamin (Daily Multi-Vitamin 1 tab PO QAM 11/17/19 12/10/23 12/09/23 tablet) atorvastatin 20 mg tablet 20 mg PO QPM #90 tabs 04/10/23 12/10/23 12/09/23 irbesartan 300 mg tablet 300 mg PO QAM #90 tabs 04/10/23 12/10/23 12/09/23 metoprolol tartrate 50 mg tablet 50 mg PO BID #180 tabs 04/10/23 12/10/23 12/09/23 fluoride (sodium) 1.1 % dental 1 applic dental BID 09/09/23 12/10/23 12/09/23 paste acetaminophen-caffeine 500 mg-65 1 tab PO Q6H PRN Headache 12/10/23 12/10/23 Unknown mg tablet Active Medications Generic Name Dose Route Start Last Admin Trade Name Constantinoq PRN Reason Stop Dose Admin Atorvastatin Calcium 20 mg 12/10/23 21:00 12/10/23 21:55 Atorvastatin 20 Mg Tab PO 01/09/24 20:59 20 mg QPM ANA M Administration Pantoprazole Sodium 40 mg/ 10 mls @ 5 mls/min 12/10/23 21:00 12/11/23 09:25 Syringe IV 01/09/24 20:59 5 mls/min BID ANA M Administration Lactated Ringer's 1,000 mls @ 125 mls/hr 12/10/23 18:01 12/11/23 11:10 Lr IV 01/09/24 18:00 125 mls/hr .Q8H ANA M Administration Acetaminophen 1,000 mg in 100 mls @ 400 mls/hr 12/11/23 07:28 12/11/23 08:32 Ofirmev IV 12/14/23 07:27 Infused Q8H PRN Infusion pain/ headache Metoprolol Tartrate 50 mg 12/10/23 21:00 12/11/23 09:25 Metoprolol Tartrate 50 Mg Tab PO 01/09/24 20:59 50 mg BID ANA M Administration NPO Date Last Intake of Fluids: 12/11/23 Time Last Intake of Fluids: 10:00 Date Last Intake of Solids: 12/09/23 Past Medical History Medical History Hyperlipidemia Hypertension Colon polyps HX, BENIGN Exercise / Class Metabolic Activity II 4-5 Yardwork/Stairs/Walk up hill Past Family History Family History Father Coronary heart disease CHF (congestive heart failure) Mother Brain cancer Sister Cancer Brother No problems noted. Son Myocardial infarction, Onset Age: 43 from AMI age 50 Cancer esophageal Denies family history of Ovarian cancer Prostate cancer Breast cancer Colorectal cancer Past Surgical History Surgical History H/O colonoscopy (~12/04/16) repeat in 5 years History of hernia repair Past Anesthesia History No Hx of Anesthesia Complications and No Family Hx of Anesthesia Complications History of PONV No Hx of PONV and No Hx of Motion Sickness Social History Smoking Status: Never smoker Do You Dip or Chew Tobacco: No Hx Alcohol Use: Yes Alcohol type: beer alcohol intake frequency: holidays/special occasions only Hx Substance Use: No substance use type: does not use Review of Systems ROS Unobtainable: All systems reviewed & are unremarkable except as noted in HPI & below Physical Exam Vital Signs Last Vital Signs Temp 37.0 C 12/11/23 13:15 Pulse 79 12/11/23 13:15 Resp 18 12/11/23 13:15 BP 98/58 L 12/11/23 13:15 Pulse Ox 97 12/11/23 13:15 O2 Del Method Room Air 12/11/23 13:15 Constitutional no acute distress ENMT Mouth: no TMJ abnormality Thyromental Distance: > or= 3.5 Finger Breadths Mallampati Class: II Neck normal visual inspection and trachea midline; neck extension not limited Respiratory normal respiratory effort Auscultation: lungs clear to auscultation bilaterally Cardiovascular Rate/Rhythm: regular rate and regular rhythm Heart Sounds: no murmur Musculoskeletal Spine: normal cervical ROM Extremities: full ROM of extremities Neurologic moves all extremities Psychiatric Orientation: alert and oriented x 3 Testing Laboratory Results 12/11/23 05:47 12/11/23 05:47 PT 11.3 Seconds (9.0-12.0) 12/10/23 11:32 INR 1.0 (0.9-1.1) 12/10/23 11:32 APTT 21 Seconds (21-31) 12/10/23 11:32 Urine Color Yellow 12/10/23 13:46 Urine Appearance Clear (Clear) 12/10/23 13:46 Urine pH 5.0 (4.5-7.5) 12/10/23 13:46 Ur Specific [place] 1.024 (1.000-1.030) 12/10/23 13:46 Urine Protein Negative (Negative) 12/10/23 13:46 Urine Glucose (UA) Negative (Negative) 12/10/23 13:46 Urine Ketones Trace (Negative) H 12/10/23 13:46 Urine Nitrite Negative (Negative) 12/10/23 13:46 Ur Leukocyte Esterase 1+ (Negative) H 12/10/23 13:46 Urine WBC (Auto) 1-5 /hpf (0-5) 12/10/23 13:46 Urine RBC (Auto) 0-4 /hpf (0-4) 12/10/23 13:46 U Hyaline Cast (Auto) 1-5 /lpf (0-5) 12/10/23 13:46 U Epithel Cells (Auto) 10-20 /lpf (0-5) H 12/10/23 13:46 Urine Bacteria (Auto) Negative (Negative) 12/10/23 13:46 Blood Type A Positive 12/10/23 11:32 Antibody Screen NEGATIVE 12/10/23 11:32 Electrocardiogram Date: 12/10/23 Normal sinus rhythm Left axis deviation Left bundle branch block Abnormal ECG When compared with ECG of 10-DEC-2023 17:16, Sinus rhythm has replaced Atrial fibrillation Vent. rate has decreased BY 60 BPM Confirmed by Rm, Tyrel ([id number]) on 12/11/2023 11:00:13 AM Echocardiogram Date: 12/11/23 EF: 65-70 LV Function: normal
--- NOTE | 2023-12-11 14:16 | Anesthesiology Progress Note ---
Date of Service December 11, 2023 Anesthesia Post Procedure Vital Signs Vital Signs: Temp Pulse Pulse Pulse Resp BP BP 12/11/23 14:09 80 12 12/11/23 13:15 37.0 C 79 18 12/11/23 11:40 36.6 C 84 15 104/67 12/11/23 08:32 36.8 C 92 H 16 116/69 12/11/23 03:41 36.7 C 85 20 12/10/23 23:59 83 12/10/23 23:58 79 12/10/23 23:10 37.1 C 76 18 12/10/23 21:17 36.7 C 68 18 12/10/23 17:48 93 H 117/77 12/10/23 17:30 93 H 25 H 115/73 12/10/23 17:21 137 H 106/65 12/10/23 17:20 132 H 20 12/10/23 17:19 145 H 16 106/65 12/10/23 16:31 182 H 12/10/23 16:29 103 H 16 12/10/23 16:28 103 H 19 112/68 12/10/23 16:05 109 H 12/10/23 15:00 101 H 26 H 124/92 BP Pulse Ox O2 Del Method 12/11/23 14:09 139/69 96 Room Air 12/11/23 13:15 98/58 L 97 Room Air 12/11/23 11:40 97 Room Air 12/11/23 08:32 97 Room Air 12/11/23 03:41 114/70 95 Room Air 12/10/23 23:59 12/10/23 23:58 12/10/23 23:10 94/60 L 96 Room Air 12/10/23 21:17 116/72 99 Room Air 12/10/23 17:48 12/10/23 17:30 100 12/10/23 17:21 12/10/23 17:20 106/65 100 Room Air 12/10/23 17:19 12/10/23 16:31 12/10/23 16:29 112/68 100 Room Air 12/10/23 16:28 97 12/10/23 16:05 12/10/23 15:00 98 Transfer of Care Handoff Completed per policy Notes Mental Status: alert / awake / arousable Patient Amnestic to Procedure: Yes Nausea / Vomiting: adequately controlled Pain: adequately controlled Airway Patency, RR, SpO2: stable & adequate BP & HR: stable & adequate Hydration State: stable & adequate Anesthetic Complications: no major complications apparent and Pt Satisfied with anesthetic care
--- NOTE | 2023-12-11 14:39 | GI REPORT ---
Patient Name: Milton Donovan Procedure Date: 12/11/2023 1:39 PM Date of : 1950 Admit Type: Inpatient Age: 73 Gender: Male Attending MD: Clem Garvey MD, Procedure: Upper GI endoscopy Providers: Clem Garvey MD Referring MD: Paco Lim M.d. Indications: Hematochezia Medicines: Propofol per Anesthesia Complications: No immediate complications. Estimated blood loss: None. Estimated Blood Loss: Estimated blood loss: none. Procedure: Pre-Anesthesia Assessment: - Prior Anticoagulants: The patient has taken no anticoagulant or antiplatelet agents. - ASA Grade Assessment: II - A patient with mild systemic disease. After obtaining informed consent, the endoscope was passed under direct vision. Throughout the procedure, the patient's blood pressure, pulse, and oxygen saturations were monitored continuously. The Endoscope was introduced through the mouth, and advanced to the second part of duodenum. The upper GI endoscopy was accomplished without difficulty. The patient tolerated the procedure well. Findings: The Z-line was irregular and was found at the gastroesophageal junction. Biopsies were taken with a cold forceps for histology. Estimated blood loss: none. Diffuse mild inflammation characterized by erythema and shallow ulcerations was found in the stomach. Biopsies were taken with a cold forceps for Helicobacter pylori testing. Estimated blood loss: none. One non-bleeding cratered duodenal ulcer with a visible vessel was found in the duodenal bulb. Area was successfully injected with 4 mL of a 0.1 mg/mL solution of epinephrine for hemostasis. Coagulation for hemostasis using bipolar probe was successful. Estimated blood loss: none. Impression: - Z-line irregular, at the gastroesophageal junction. Biopsied. - Gastritis. Biopsied. - Non-bleeding duodenal ulcer with a visible vessel. Injected. Treated with bipolar cautery. Recommendation: - [facility]. - Advance diet as tolerated today. -protonix drip for 72 hours then BID thereafter for minimum 2 weeks -supportive care, IVFs - Await pathology results. Clem Garvey MD 12/11/2023 2:38:41 PM This report has been signed electronically. Note Initiated On: 12/11/2023 1:39 PM Number of Addenda: 0 I attest to the content of the Intraoperative Record and orders documented therein, exceptions below {[id number]}
[2023-12-11] MEDS ORDERED: SODIUM CHLORIDE 0.9% 250 ML IV PRN ×2 (15:25→23:53)
[2023-12-11 16:02] LABS: Hemoglobin 6.7 g/dl (14.0-18.0)
[2023-12-11] MEDS: LIDOCAINE 2% 2 ML VIAL/AMP(20MG/ML) INFIL ONE ×3 (17:03)
[2023-12-11] MEDS: PROPOFOL IV EMULSION 10 MG/ML 20 ML VIAL IV ONE (17:03)
--- NOTE | 2023-12-11 21:14 | Hospitalist Progress Note ---
Date of Service December 11, 2023 Assessment & Plan (1) Acute upper gastrointestinal bleeding: Plan: Suspected based on melena and new anemia Pantoprazole 40 mg IV BID Biopsied. - Gastritis. Biopsied. - Non-bleeding duodenal ulcer with a visible vessel. Injected. Treated with bipolar cautery. Recommendation: - [facility]. - Advance diet as tolerated today. -protonix drip for 72 hours then BID thereafter for minimum 2 weeks -supportive care, IVFs - Await pathology results Patient will be advanced to a clear liquid diet and transfused 1uit of PRBC because his hemoglobin was below 7. Later in the evening, patient had a large BM of blood. Patient reports no change in symptoms. May be old blood but will sign out to overnight resident. Also called blood bank to hold 2 additional units of blood in case he continnues to have a BM. (2) Acute blood loss anemia: Plan: H&H q.6 hourly Transfuse < 7 (3) Paroxysmal atrial fibrillation: Plan: New onset No anticoagulation due to concurrent acute GI bleed Rate control with metoprolol 5 mg IV now and then restart his usual metoprolol tartrate which he missed this morning TSH and TTE in AM (4) Non-sustained ventricular tachycardia: Plan: TTE (5) Hyperlipidemia: Plan: Continue atorvastatin (6) Hypertension: Plan: Hold irbesartan in setting of GI bleed Continue metoprolol for rate control Plan VTE Prophyalxis - chemical contraindicate Disposition - admit to med/tele Admission and Anticipated Discharge Date Admission Date: December 10, 2023 Subjective Patient reports feeling dizzy and lightheaded when standing. Patient reports no chest pain, nausea, vomiting Review of Systems Review of Systems: All systems reviewed & are unremarkable except as noted in HPI & below Physical Exam Constitutional: WD/WN, vitals as above Respiratory: normal respiratory effort, lungs clear to auscultation Cardiovascular: RRR, no murmur, no edema Gastrointestinal (Abdomen): normal bowel sounds, soft, nontender, no hepatosplenomegaly Skin: no rashes, warm and dry Psychiatric: Orientation: alert and oriented x 3 Affect: euthymic affect Results & Data Results & Data Vital Signs (Past 12 Hours) Vital Signs Temp Pulse Pulse Resp BP BP BP 12/11/23 19:36 36.7 C 90 16 113/76 12/11/23 19:21 36.6 C 101 H 14 98/69 L 12/11/23 18:01 12/11/23 18:00 36.6 C 101 H 14 98/69 L 12/11/23 17:55 36.7 C 102 H 18 109/75 12/11/23 17:30 36.9 C 77 20 106/55 L 12/11/23 17:11 36.8 C 94 H 18 107/67 12/11/23 16:57 37 C 75 18 98/63 L 12/11/23 15:19 36.8 C 87 16 114/72 12/11/23 14:39 88 14 121/66 12/11/23 14:24 88 14 118/56 L 12/11/23 14:09 80 12 139/69 12/11/23 13:15 37.0 C 79 18 98/58 L 12/11/23 11:40 36.6 C 84 15 104/67 Pulse Ox O2 Del Method 12/11/23 19:36 98 12/11/23 19:21 97 Room Air 12/11/23 18:01 Room Air 12/11/23 18:00 97 12/11/23 17:55 97 12/11/23 17:30 99 12/11/23 17:11 95 12/11/23 16:57 96 12/11/23 15:19 96 Room Air 12/11/23 14:39 98 Room Air 12/11/23 14:24 96 Room Air 12/11/23 14:09 96 Room Air 12/11/23 13:15 97 Room Air 12/11/23 11:40 97 Room Air PG Care Time/CCT Total # of Minutes Spent Total Time Spent with Patient: Total time spent is greater than 50% in coordination of care (as documented) at patient's floor/unit and/or counseling patient: Coding Level of Care Code 52955 SUB INP/OBS CARE 3/50MIN Diagnoses Acute upper gastrointestinal bleeding K92.2 Acute blood loss anemia D62 Paroxysmal atrial fibrillation I48.0 Non-sustained ventricular tachycardia I47.29 Hyperlipidemia E78.5 Hypertension I10
[2023-12-11] MEDS: MELATONIN 3 MG TAB PO PRN (22:12)
[2023-12-11 23:43] LABS: Hematocrit (blood only) 17.8 % (42.0-52.0); Hemoglobin 6.2 g/dl (14.0-18.0)
--- NOTE | 2023-12-12 00:14 | Communication Note ---
Date of Service: December 12, 2023 Was alerted by nursing that pt had another blood bowel movement. Ordered repeat H/H and Hgb=6.2.Went up to see pt, hemodynamically stable, alert and orientated without complaint. 2 units pRBC ordered with another 2 on hold, spoke with blood bank. Plan to upgrade to PCU.
[2023-12-12 09:11] LABS: Hematocrit (blood only) 22.7 % (42.0-52.0); Hemoglobin 7.7 g/dl (14.0-18.0); Mean Corpuscular Hemoglobin 29.5 pg (25.0-34.0); Mean Corpuscular Hgb Conc 33.9 g/dL (32.0-36.0); Mean Platelet Volume 10.6 fL (9.4-12.4); Nucleated RBC % (auto) 1.2 %; Platelet Count 164 K/uL (130-400); RDW Coefficient of Variation 17.3 % (11.5-14.5); RDW Standard Deviation 52.4 fL (36.4-46.3); Red Blood Count 2.61 M/uL (4.70-6.10); White Blood Count 17.32 K/ul (4.8-10.8)
[2023-12-12 09:32] LABS: BUN Creatinine Ratio 35.8 (10-20); Calcium 7.5 mg/dl (8.6-10.3); Creatinine Clr Calc Pharmacy 69.6 ml/min; Est GFR (African American) 66.6 ml/min; Est GFR (Non-African American) 57.5 ml/min; Potassium 3.6 mmol/L (3.5-5.1)
[2023-12-12] MEDS ORDERED: SODIUM CHLORIDE 0.9% 250 ML IV PRN (09:56)
--- NOTE | 2023-12-12 10:41 | Gastroenterology Progress Note ---
Date of Service December 12, 2023 Assessment & Plan (1) Acute blood loss anemia: Plan: Recommended transfer of patient to tertiary center but tertiary center insisting on repeat EGD first. Call in to nursing supervisor packing room but OR is very busy. Will do procedure when OR available. Admission and Anticipated Discharge Date Admission Date: December 10, 2023 Subjective Patient continued to have black stools through the night. Hemoglobin is 7.7 after three units transfusions. Patient reports feeling okay but hospitalist says he is still orthostatic. Results & Data Vital Signs (Past 12 Hours) Vital Signs Temp Pulse Pulse Resp BP BP Pulse Ox 12/12/23 07:02 69 12/12/23 06:09 36.8 C 66 16 129/79 99 12/12/23 05:09 74 12/12/23 05:09 83 16 120/73 99 12/12/23 04:39 36.7 C 74 18 110/76 95 12/12/23 04:39 36.8 C 81 16 103/69 95 12/12/23 04:24 36.8 C 83 18 128/72 98 12/12/23 04:08 36.8 C 71 18 117/73 95 12/12/23 04:02 36.8 C 78 18 117/73 99 12/12/23 03:11 64 12/12/23 01:55 36.9 C 74 18 118/73 99 12/12/23 01:55 36.7 C 82 18 111/70 96 12/12/23 01:25 36.6 C 82 18 91/64 L 97 12/12/23 01:10 36.6 C 74 18 110/73 98 12/12/23 00:50 36.8 C 83 18 106/65 98 12/12/23 00:33 36.8 C 83 18 106/65 12/11/23 23:59 36.3 C L 80 18 97/63 L 96 12/11/23 23:50 36.8 C 83 18 106/65 98 12/11/23 23:50 36.8 C 83 18 106/65 98 12/11/23 23:50 36.8 C 83 18 106/65 12/11/23 23:00 84 12/11/23 22:49 36.7 C 72 18 97/63 L 94 O2 Del Method 12/12/23 07:02 12/12/23 06:09 12/12/23 05:09 12/12/23 05:09 12/12/23 04:39 12/12/23 04:39 12/12/23 04:24 12/12/23 04:08 12/12/23 04:02 12/12/23 03:11 12/12/23 01:55 12/12/23 01:55 12/12/23 01:25 12/12/23 01:10 12/12/23 00:50 12/12/23 00:33 12/11/23 23:59 Room Air 12/11/23 23:50 12/11/23 23:50 12/11/23 23:50 12/11/23 23:00 12/11/23 22:49 Room Air
--- NOTE | 2023-12-12 11:16 | Anesthesiology Consultation ---
Date of Service December 12, 2023 Assessment & Plan Chart Review Chart Review: Acceptable Risk for Surgery and Patient NOT seen in Pre Admission Testing Consults Requested none History Surgery Operation Date: 12/11/23 16:30 Proposed Procedures p Esophagogastroduodenoscopy Dr. Garvey - Clem Garvey MD Operation Date: 12/12/23 11:05 Proposed Procedures p Esophagogastroduodenoscopy - Stephanie Campos Jr, MD Height/Weight Height: 6 ft Weight: 117 kg Allergies Allergy/AdvReac Type Severity Reaction Status Date / Time No Known Allergies Allergy Verified 12/10/23 13:50 Medications Home Medications Medication Instructions Recorded Confirmed Last Taken ascorbic acid (vitamin C) 100 mg 100 mg PO QAM 11/17/19 12/10/23 12/09/23 tablet multivitamin (Daily Multi-Vitamin 1 tab PO QAM 11/17/19 12/10/23 12/09/23 tablet) atorvastatin 20 mg tablet 20 mg PO QPM #90 tabs 04/10/23 12/10/23 12/09/23 irbesartan 300 mg tablet 300 mg PO QAM #90 tabs 04/10/23 12/10/23 12/09/23 metoprolol tartrate 50 mg tablet 50 mg PO BID #180 tabs 04/10/23 12/10/23 12/09/23 fluoride (sodium) 1.1 % dental 1 applic dental BID 09/09/23 12/10/23 12/09/23 paste acetaminophen-caffeine 500 mg-65 1 tab PO Q6H PRN Headache 12/10/23 12/10/23 Unknown mg tablet Active Medications Generic Name Dose Route Start Last Admin Trade Name Mulu PRN Reason Stop Dose Admin Atorvastatin Calcium 20 mg 12/10/23 21:00 12/11/23 21:47 Atorvastatin 20 Mg Tab PO 01/09/24 20:59 20 mg QPM ANA M Administration Pantoprazole Sodium 40 mg/ 10 mls @ 5 mls/min 12/10/23 21:00 12/12/23 08:20 Syringe IV 01/09/24 20:59 5 mls/min BID ANA M Administration Lactated Ringer's 1,000 mls @ 125 mls/hr 12/10/23 18:01 12/12/23 08:19 Lr IV 01/09/24 18:00 125 mls/hr .Q8H ANA M Administration Acetaminophen 1,000 mg in 100 mls @ 400 mls/hr 12/11/23 07:28 12/12/23 02:30 Ofirmev IV 12/14/23 07:27 Infused Q8H PRN Infusion pain/ headache Melatonin 6 mg 12/11/23 21:36 12/11/23 22:12 Melatonin 3 Mg Tab PO 01/10/24 21:35 6 mg HS PRN Administration Sleep Metoprolol Tartrate 50 mg 12/10/23 21:00 12/12/23 08:19 Metoprolol Tartrate 50 Mg Tab PO 01/09/24 20:59 50 mg BID ANA M Administration NPO Date Last Intake of Fluids: 12/11/23 Time Last Intake of Fluids: 10:00 Date Last Intake of Solids: 12/09/23 Past Medical History Medical History Hyperlipidemia Hypertension Colon polyps HX, BENIGN Past Family History Family History Father Coronary heart disease CHF (congestive heart failure) Mother Brain cancer Sister Cancer Brother No problems noted. Son Myocardial infarction, Onset Age: 43 from AMI age 50 Cancer esophageal Denies family history of Ovarian cancer Prostate cancer Breast cancer Colorectal cancer Past Surgical History Surgical History H/O colonoscopy (~12/04/16) repeat in 5 years History of hernia repair Social History Smoking Status: Never smoker Do You Dip or Chew Tobacco: No Hx Alcohol Use: Yes Alcohol type: beer alcohol intake frequency: holidays/special occasions only Hx Substance Use: No substance use type: does not use Physical Exam Vital Signs Last Vital Signs Temp 36.8 C 12/12/23 10:44 Pulse 101 H 12/12/23 10:44 Resp 16 12/12/23 10:44 BP 101/56 L 12/12/23 10:44 Pulse Ox 97 12/12/23 10:44 O2 Del Method Room Air 12/11/23 23:59 Constitutional WD/WN, vitals as above no acute distress Eyes PERRL, conjunctivae normal, anicteric sclerae ENMT external ear and nose normal, oropharynx normal Mouth: no TMJ abnormality Thyromental Distance: > or= 3.5 Finger Breadths Mallampati Class: II Neck normal visual inspection and trachea midline; neck extension not limited Respiratory normal respiratory effort, lungs clear to auscultation normal respiratory effort Auscultation: lungs clear to auscultation bilaterally Cardiovascular RRR, no murmur, no edema Rate/Rhythm: regular rate and regular rhythm Heart Sounds: no murmur Gastrointestinal (Abdomen) normal bowel sounds, soft, nontender, no hepatosplenomegaly Musculoskeletal no cyanosis or clubbing, extremities motor strength 5/5 Spine: normal cervical ROM Extremities: full ROM of extremities Skin no rashes, warm and dry Neurologic moves all extremities and awake; not confused Psychiatric A+Ox3, euthymic affect Orientation: alert and oriented x 3 Affect: euthymic affect Testing Laboratory Results 12/12/23 08:33 12/12/23 08:33 PT 11.3 Seconds (9.0-12.0) 12/10/23 11:32 INR 1.0 (0.9-1.1) 12/10/23 11:32 APTT 21 Seconds (21-31) 12/10/23 11:32 Urine Color Yellow 12/10/23 13:46 Urine Appearance Clear (Clear) 12/10/23 13:46 Urine pH 5.0 (4.5-7.5) 12/10/23 13:46 Ur Specific [place] 1.024 (1.000-1.030) 12/10/23 13:46 Urine Protein Negative (Negative) 12/10/23 13:46 Urine Glucose (UA) Negative (Negative) 12/10/23 13:46 Urine Ketones Trace (Negative) H 12/10/23 13:46 Urine Nitrite Negative (Negative) 12/10/23 13:46 Ur Leukocyte Esterase 1+ (Negative) H 12/10/23 13:46 Urine WBC (Auto) 1-5 /hpf (0-5) 12/10/23 13:46 Urine RBC (Auto) 0-4 /hpf (0-4) 12/10/23 13:46 U Hyaline Cast (Auto) 1-5 /lpf (0-5) 12/10/23 13:46 U Epithel Cells (Auto) 10-20 /lpf (0-5) H 12/10/23 13:46 Urine Bacteria (Auto) Negative (Negative) 12/10/23 13:46 Blood Type A Positive 12/10/23 11:32 Antibody Screen NEGATIVE 12/10/23 11:32 Electrocardiogram Date: 12/10/23 Normal sinus rhythm Left axis deviation Left bundle branch block Abnormal ECG When compared with ECG of 10-DEC-2023 17:16, Sinus rhythm has replaced Atrial fibrillation Vent. rate has decreased BY 60 BPM Confirmed by Tyrel Abdalla ([id number]) on 12/11/2023 11:00:13 AM Echocardiogram Date: 12/11/23 EF: 65-70 LV Function: normal
[2023-12-12] MEDS ORDERED: PANTOPRAZOLE BOLUS/DRIP IV STA (11:32)
[2023-12-12] MEDS ORDERED: ONDANSETRON INJ 2 MG/ML 2 ML VIAL ONE (11:33)
[2023-12-12] MEDS ORDERED: SUCCINYLCHOLINE 100MG/5ML SYR IV ONE (11:33)
[2023-12-12] MEDS ORDERED: LIDOCAINE 2% 2 ML VIAL/AMP(20MG/ML) INFIL ONE (11:33)
[2023-12-12] MEDS ORDERED: PROPOFOL IV EMULSION 10 MG/ML 20 ML VIAL IV ONE (11:33)
[2023-12-12] MEDS ORDERED: PHENYLEPHRINE 100MCG/ML 10ML SYR IV ONE (12:11)
--- NOTE | 2023-12-12 12:32 | GI REPORT ---
Patient Name: Milton Donovan Procedure Date: 12/12/2023 12:05 PM Date of : 1950 Admit Type: Inpatient Age: 73 Gender: Male Attending MD: Stephanie Campos MD, Procedure: Upper GI endoscopy Providers: Stephanie Campos MD Referring MD: Paco Lim M.d. Indications: Active gastrointestinal bleeding Medicines: General Anesthesia Complications: No immediate complications. Estimated Blood Loss: Estimated blood loss: none. Procedure: Pre-Anesthesia Assessment: - Prior to the procedure, a History and Physical was performed, and patient medications and allergies were reviewed. The patient's tolerance of previous anesthesia was also reviewed. The risks and benefits of the procedure and the sedation options and risks were discussed with the patient. All questions were answered, and informed consent was obtained. Prior Anticoagulants: The patient has taken no anticoagulant or antiplatelet agents. ASA Grade Assessment: E - Emergency. After reviewing the risks and benefits, the patient was deemed in satisfactory condition to undergo the procedure. After obtaining informed consent, the endoscope was passed under direct vision. Throughout the procedure, the patient's blood pressure, pulse, and oxygen saturations were monitored continuously. The Endoscope was introduced through the mouth, and advanced to the second part of duodenum. The upper GI endoscopy was accomplished without difficulty. The patient tolerated the procedure well. Findings: The esophagus was normal. Red blood was found in the gastric fundus. The exam of the stomach was otherwise normal. One non-obstructing oozing cratered duodenal ulcer with oozing hemorrhage (Florentino Class Ib) was found in the duodenal bulb. The lesion was 5 mm in largest dimension. Area was successfully injected with 5 mL of a 0.1 mg/mL solution of epinephrine for hemostasis. Coagulation for hemostasis using bipolar probe was successful. Impression: - Normal esophagus. - Red blood in the gastric fundus. - Non-obstructing oozing duodenal ulcer with oozing hemorrhage (Florentino Class Ib). Injected. Treated with bipolar cautery. - No specimens collected. Recommendation: - [facility] patient to [facility] for [facility] care. Stephanie Campos MD 12/12/2023 12:32:20 PM Note Initiated On: 12/12/2023 12:05 PM Number of Addenda: 0 I attest to the content of the Intraoperative Record and orders documented therein, exceptions below {[id number]}
--- NOTE | 2023-12-12 13:04 | Anesthesiology Progress Note ---
Date of Service December 12, 2023 Anesthesia Post Procedure Vital Signs Vital Signs: Temp Pulse Pulse Pulse Resp BP BP 12/12/23 12:55 79 12 133/77 12/12/23 12:45 80 16 143/77 H 12/12/23 12:36 36.2 C L 78 16 137/76 12/12/23 11:15 36.7 C 94 H 16 120/68 12/12/23 11:00 36.8 C 101 H 16 122/72 12/12/23 10:44 36.8 C 101 H 16 101/56 L 12/12/23 08:00 86 12/12/23 07:02 69 12/12/23 06:09 36.8 C 66 16 129/79 12/12/23 05:09 74 12/12/23 05:09 83 16 120/73 12/12/23 04:39 36.7 C 74 18 110/76 12/12/23 04:39 36.8 C 81 16 103/69 12/12/23 04:24 36.8 C 83 18 128/72 12/12/23 04:08 36.8 C 71 18 117/73 12/12/23 04:02 36.8 C 78 18 117/73 12/12/23 03:11 64 12/12/23 01:55 36.9 C 74 18 118/73 12/12/23 01:55 36.7 C 82 18 111/70 12/12/23 01:25 36.6 C 82 18 91/64 L 12/12/23 01:10 36.6 C 74 18 110/73 12/12/23 00:50 36.8 C 83 18 106/65 12/12/23 00:33 36.8 C 83 18 106/65 12/11/23 23:59 36.3 C L 80 18 97/63 L 12/11/23 23:50 36.8 C 83 18 106/65 12/11/23 23:50 36.8 C 83 18 106/65 12/11/23 23:50 36.8 C 83 18 106/65 12/11/23 23:00 84 12/11/23 22:49 36.7 C 72 18 97/63 L 12/11/23 22:02 36.7 C 101 H 16 115/72 12/11/23 19:36 36.7 C 90 16 113/76 12/11/23 19:21 36.6 C 101 H 14 98/69 L 12/11/23 18:01 12/11/23 18:00 36.6 C 101 H 14 98/69 L 12/11/23 17:55 36.7 C 102 H 18 109/75 12/11/23 17:30 36.9 C 77 20 106/55 L 12/11/23 17:11 36.8 C 94 H 18 107/67 12/11/23 16:57 37 C 75 18 98/63 L 12/11/23 15:19 36.8 C 87 16 114/72 12/11/23 14:39 88 14 12/11/23 14:24 88 14 12/11/23 14:09 80 12 12/11/23 13:15 37.0 C 79 18 BP Pulse Ox O2 Del Method O2 Flow Rate 12/12/23 12:55 100 Oxymask 2 12/12/23 12:45 100 Oxymask 4 12/12/23 12:36 100 Oxymask 6 12/12/23 11:15 97 12/12/23 11:00 97 12/12/23 10:44 97 12/12/23 08:00 12/12/23 07:02 12/12/23 06:09 99 12/12/23 05:09 12/12/23 05:09 99 12/12/23 04:39 95 12/12/23 04:39 95 12/12/23 04:24 98 12/12/23 04:08 95 12/12/23 04:02 99 12/12/23 03:11 12/12/23 01:55 99 12/12/23 01:55 96 12/12/23 01:25 97 12/12/23 01:10 98 12/12/23 00:50 98 12/12/23 00:33 12/11/23 23:59 96 Room Air 12/11/23 23:50 98 12/11/23 23:50 98 12/11/23 23:50 12/11/23 23:00 12/11/23 22:49 94 Room Air 12/11/23 22:02 97 Room Air 12/11/23 19:36 98 12/11/23 19:21 97 Room Air 12/11/23 18:01 Room Air 12/11/23 18:00 97 12/11/23 17:55 97 12/11/23 17:30 99 12/11/23 17:11 95 12/11/23 16:57 96 12/11/23 15:19 96 Room Air 12/11/23 14:39 121/66 98 Room Air 12/11/23 14:24 118/56 L 96 Room Air 12/11/23 14:09 139/69 96 Room Air 12/11/23 13:15 98/58 L 97 Room Air Transfer of Care Handoff Completed per policy Notes Mental Status: alert / awake / arousable Patient Amnestic to Procedure: Yes Nausea / Vomiting: adequately controlled Pain: adequately controlled Airway Patency, RR, SpO2: stable & adequate BP & HR: stable & adequate Hydration State: stable & adequate Anesthetic Complications: no major complications apparent and Pt Satisfied with anesthetic care
[2023-12-12] MEDS: PANTOprazole 80 MG in DEXTROSE 5% 100 ML IV ONE (13:42)
[2023-12-12] MEDS: PANTOprazole 40 MG in DEXTROSE 5% MINI-B 100 ML IV SCH (14:22)
[2023-12-12 14:27] LABS: Hematocrit (blood only) 24.9 % (42.0-52.0); Hemoglobin 8.5 g/dl (14.0-18.0); Mean Corpuscular Hemoglobin 29.7 pg (25.0-34.0); Mean Corpuscular Hgb Conc 34.1 g/dL (32.0-36.0); Mean Corpuscular Volume 87.1 fL (80.0-100.0); Mean Platelet Volume 10.4 fL (9.4-12.4); Nucleated RBC # (auto) 0.22 K/uL (0.00-0.12); Nucleated RBC % (auto) 1.1 %; Platelet Count 161 K/uL (130-400); RDW Coefficient of Variation 17.2 % (11.5-14.5); RDW Standard Deviation 52.5 fL (36.4-46.3); Red Blood Count 2.86 M/uL (4.70-6.10); White Blood Count 19.49 K/ul (4.8-10.8)
[2023-12-12 15:07] LABS: Hematocrit (blood only) 24.6 % (42.0-52.0); Hemoglobin 8.4 g/dl (14.0-18.0)
--- NOTE | 2023-12-12 20:40 | Hospitalist Progress Note ---
Date of Service December 12, 2023 Assessment & Plan (1) Acute upper gastrointestinal bleeding: Plan: Suspected based on melena and new anemia Pantoprazole 40 mg IV BID Biopsied. - Gastritis. Biopsied. - Non-bleeding duodenal ulcer with a visible vessel. Injected. Treated with bipolar cautery. Recommendation: - [facility] patient to [facility] care. - Advance diet as tolerated today. -protonix drip for 72 hours then BID thereafter for minimum 2 weeks -supportive care, IVFs - Await pathology results Patient will be placed again NPO. Called [facility] to transfer patient for IR. [facility] recommends another uppeer endoscopy. Repeat upper scope shows: same bleeding ulcer. Patient has required multiple units of PRBC updated family. (2) Acute blood loss anemia: Plan: H&H q.6 hourly Transfuse < 7 (3) Paroxysmal atrial fibrillation: Plan: New onset No anticoagulation due to concurrent acute GI bleed Rate control with metoprolol 5 mg IV now and then restart his usual metoprolol tartrate which he missed this morning appears sinus (4) Non-sustained ventricular tachycardia: Plan: TTE (5) Hyperlipidemia: Plan: Continue atorvastatin (6) Hypertension: Plan: Hold irbesartan in setting of GI bleed Continue metoprolol for rate control Plan VTE Prophyalxis - chemical contraindicate Disposition - admit to med/tele Admission and Anticipated Discharge Date Admission Date: December 10, 2023 Subjective Patient has had multiple BM with dark stool. Patient reports feeling lightheded. Review of Systems Review of Systems: All systems reviewed & are unremarkable except as noted in HPI & below Physical Exam Constitutional: WD/WN, vitals as above Respiratory: normal respiratory effort, lungs clear to auscultation Cardiovascular: RRR, no murmur, no edema Gastrointestinal (Abdomen): normal bowel sounds, soft, nontender, no hepatosplenomegaly Skin: no rashes, warm and dry Psychiatric: Orientation: alert and oriented x 3 Affect: euthymic affect Results & Data Results & Data Vital Signs (Past 12 Hours) Vital Signs Temp Pulse Pulse Resp BP BP Pulse Ox 12/12/23 19:29 36.7 C 64 18 109/68 95 12/12/23 18:00 12/12/23 13:35 36.7 C 86 16 129/77 99 12/12/23 13:21 78 12 110/70 99 12/12/23 13:05 36.8 C 85 20 128/67 98 12/12/23 12:55 79 12 133/77 100 12/12/23 12:45 80 16 143/77 H 100 12/12/23 12:36 36.2 C L 78 16 137/76 100 12/12/23 11:15 36.7 C 94 H 16 120/68 97 12/12/23 11:00 36.8 C 101 H 16 122/72 97 12/12/23 10:44 36.8 C 101 H 16 101/56 L 97 Pulse Ox O2 Del Method O2 Del Method O2 Flow Rate 12/12/23 19:29 Room Air 12/12/23 18:00 97 Room Air 12/12/23 13:35 Room Air 12/12/23 13:21 Room Air 12/12/23 13:05 Room Air 12/12/23 12:55 Oxymask 2 12/12/23 12:45 Oxymask 4 12/12/23 12:36 Oxymask 6 12/12/23 11:15 12/12/23 11:00 12/12/23 10:44 PG Care Time/CCT Total # of Minutes Spent Total Time Spent with Patient: Total time spent is greater than 50% in coordination of care (as documented) at patient's floor/unit and/or counseling patient: Prolonged Care Time Prolonged Care Time: Yes Total Prolonged Care Time: 120 8:00 to 10:00 Coding Level of Care Code 86596 SUB INP/OBS CARE 3/50MIN (25 - SIGNIFICANT, SEPARATELY IDENTIFIABLE ) Diagnoses Acute upper gastrointestinal bleeding K92.2 Acute blood loss anemia D62 Paroxysmal atrial fibrillation I48.0 Non-sustained ventricular tachycardia I47.29 Hyperlipidemia E78.5 Hypertension I10 Additional Codes Prolonged Care Time - Prolonged Care Time: Yes ([id number])
[2023-12-12 21:40] LABS: Hematocrit (blood only) 24.3 % (42.0-52.0); Hemoglobin 8.1 g/dl (14.0-18.0)
[2023-12-13 03:02] LABS: Hematocrit (blood only) 22.3 % (42.0-52.0); Hemoglobin 7.4 g/dl (14.0-18.0); Mean Corpuscular Hgb Conc 33.2 g/dL (32.0-36.0); Mean Corpuscular Volume 90.3 fL (80.0-100.0); Mean Platelet Volume 10.2 fL (9.4-12.4); Nucleated RBC # (auto) 0.12 K/uL (0.00-0.12); Nucleated RBC % (auto) 0.8 %; Platelet Count 158 K/uL (130-400); RDW Coefficient of Variation 17.2 % (11.5-14.5); RDW Standard Deviation 53.6 fL (36.4-46.3); Red Blood Count 2.47 M/uL (4.70-6.10); White Blood Count 14.96 K/ul (4.8-10.8)
[2023-12-13 03:57] LABS: BUN Creatinine Ratio 23.3 (10-20); Calcium 7.7 mg/dl (8.6-10.3); Creatinine Clr Calc Pharmacy 73.8 ml/min; Est GFR (African American) 71.5 ml/min; Est GFR (Non-African American) 61.7 ml/min; Potassium 3.8 mmol/L (3.5-5.1)
[2023-12-13 08:59] LABS: Hematocrit (blood only) 20.8 % (42.0-52.0); Hemoglobin 7.2 g/dl (14.0-18.0)
[2023-12-13] MEDS ORDERED: SODIUM CHLORIDE 0.9% 250 ML IV PRN (09:13)
--- NOTE | 2023-12-13 10:55 | Gastroenterology Progress Note ---
Date of Service December 13, 2023 Assessment & Plan (1) Acute blood loss anemia: Plan: I discussed with Dr. Lim who is considering sending him to [facility] with blood count still falling. My gut feeling is that he has stopped bleeding since he is having normal but black stool. This could be clearance of old blood. Hemoglobin may just be stabilizing after transfusion and with the fluids he is getting maybe a little diluted. I can't argue with transferring because if he is bleeding we have endoscopically treated him twice this hospitalization. Might be worthwhile to check another H/H later today and see where it stands Admission and Anticipated Discharge Date Admission Date: December 10, 2023 Subjective Says he had his first "real" bowel movement this morning since coming in to the hospital but it was black. Hemoglobin has drifted down to 7.2 Physical Exam Physical Exam: He is pale but in no distress Results & Data Vital Signs (Past 12 Hours) Vital Signs Temp Pulse Pulse Resp BP BP Pulse Ox 12/13/23 08:13 36.5 C 76 113/61 93 12/13/23 02:32 36.9 C 73 18 104/64 93 12/13/23 00:52 84 O2 Del Method 12/13/23 08:13 Room Air 12/13/23 02:32 Room Air 12/13/23 00:52
[2023-12-13 14:09] LABS: Hematocrit (blood only) 21.3 % (42.0-52.0); Hemoglobin 7.1 g/dl (14.0-18.0)
[2023-12-13 18:23] LABS: Hematocrit (blood only) 25.2 % (42.0-52.0); Hemoglobin 8.3 g/dl (14.0-18.0)
--- NOTE | 2023-12-13 22:33 | Hospitalist Progress Note ---
Date of Service December 13, 2023 Assessment & Plan (1) Acute upper gastrointestinal bleeding: Plan: Suspected based on melena and new anemia Pantoprazole 40 mg IV BID Biopsied. - Gastritis. Biopsied. - Non-bleeding duodenal ulcer with a visible vessel. Injected. Treated with bipolar cautery. Recommendation: - [facility] - Advance diet as tolerated today. -protonix drip for 72 hours then BID thereafter for minimum 2 weeks -supportive care, IVFs - Await pathology results 12/12 Patient will be placed again NPO. Called [facility] to transfer patient for IR. [facility] recommends another upper endoscopy. Repeat upper scope shows: same bleeding ulcer. Patient has required multiple units of PRBC updated family. On 12/13 Patient remains on NPO. Hemoglobin is downtrending but the rate does appear to be decreased. HIs BMs have also decreased. will transfuse another unit. UPdated [facility], would like to monitor for another day. (2) Acute blood loss anemia: Plan: H&H q.6 hourly Transfuse < 7 (3) Paroxysmal atrial fibrillation: Plan: New onset No anticoagulation due to concurrent acute GI bleed Rate control with metoprolol 5 mg IV now and then restart his usual metoprolol tartrate which he missed this morning appears sinus (4) Non-sustained ventricular tachycardia: Plan: TTE (5) Hyperlipidemia: Plan: Continue atorvastatin (6) Hypertension: Plan: Hold irbesartan in setting of GI bleed Continue metoprolol for rate control Plan VTE Prophyalxis - chemical contraindicate Disposition - admit to med/tele Admission and Anticipated Discharge Date Admission Date: December 10, 2023 Subjective Patient is frustrated with not being able to eat, and lack of progress. Review of Systems Review of Systems: All systems reviewed & are unremarkable except as noted in HPI & below Physical Exam Constitutional: WD/WN, vitals as above Respiratory: normal respiratory effort, lungs clear to auscultation Cardiovascular: RRR, no murmur, no edema Gastrointestinal (Abdomen): normal bowel sounds, soft, nontender, no hepatosplenomegaly Skin: no rashes, warm and dry Psychiatric: Orientation: alert and oriented x 3 Affect: euthymic affect Results & Data Results & Data Vital Signs (Past 12 Hours) Vital Signs Temp Pulse Pulse Resp BP BP Pulse Ox 02/11/24 22:24 37.3 C 67 18 111/62 95 12/13/23 19:16 37.0 C 78 18 123/71 96 12/13/23 17:15 37 C 67 14 108/64 97 12/13/23 16:50 36.6 C 60 122/74 12/13/23 15:21 36.7 C 66 16 132/72 97 12/13/23 15:06 36.6 C 80 14 132/72 97 12/13/23 14:47 36.5 C 65 14 130/65 97 12/13/23 11:19 36.6 C 68 16 101/64 94 O2 Del Method 12/13/23 22:24 Room Air 12/13/23 19:16 Room Air 12/13/23 17:15 12/13/23 16:50 12/13/23 15:21 12/13/23 15:06 12/13/23 14:47 12/13/23 11:19 Room Air PG Care Time/CCT Total # of Minutes Spent Total Time Spent with Patient: Total time spent is greater than 50% in coordination of care (as documented) at patient's floor/unit and/or counseling patient: Coding Level of Care Code 24381 SUB INP/OBS CARE 3/50MIN Diagnoses Acute upper gastrointestinal bleeding K92.2 Acute blood loss anemia D62 Paroxysmal atrial fibrillation I48.0 Non-sustained ventricular tachycardia I47.29 Hyperlipidemia E78.5 Hypertension I10 Time Spent (min) 50
[2023-12-13 23:01] LABS: Hematocrit (blood only) 21.7 % (42.0-52.0); Hemoglobin 7.3 g/dl (14.0-18.0)
[2023-12-14 08:25] LABS: Hematocrit (blood only) 22.3 % (42.0-52.0); Hemoglobin 7.2 g/dl (14.0-18.0); Mean Corpuscular Hemoglobin 29.5 pg (25.0-34.0); Mean Corpuscular Hgb Conc 32.3 g/dL (32.0-36.0); Mean Corpuscular Volume 91.4 fL (80.0-100.0); Mean Platelet Volume 10.4 fL (9.4-12.4); Nucleated RBC # (auto) 0.04 K/uL (0.00-0.12); Nucleated RBC % (auto) 0.4 %; Platelet Count 160 K/uL (130-400); RDW Coefficient of Variation 17.8 % (11.5-14.5); Red Blood Count 2.44 M/uL (4.70-6.10); White Blood Count 9.69 K/ul (4.8-10.8)
[2023-12-14 08:43] LABS: BUN Creatinine Ratio 13.9 (10-20); Calcium 7.7 mg/dl (8.6-10.3); Creatinine Clr Calc Pharmacy 75.6 ml/min; Est GFR (African American) 72.3 ml/min; Est GFR (Non-African American) 62.3 ml/min; Potassium 3.4 mmol/L (3.5-5.1)
[2023-12-14] MEDS ORDERED: SODIUM CHLORIDE 0.9% 250 ML IV PRN ×2 (08:47→13:16)
--- NOTE | 2023-12-14 10:41 | Gastroenterology Progress Note ---
Date of Service December 14, 2023 Assessment & Plan (1) Acute blood loss anemia: (2) Duodenal bulb ulcer: Plan 1. Continue PPI ggt for a total of 72 hours from endoscopy performed 12/12, then Protonix 40 mg BID. 2. Clear diet today with slow advancement as tolerated. 3. Await pending histology. 4. Continue supportive care. Admission and Anticipated Discharge Date Admission Date: December 10, 2023 Supervising Physician Co-Signing Physician Notes Agree with POLO Riojas as above Abd: Soft, NT, ND, +BS Continue current therapy and supportive care No signs of overt GI bleeding Subjective Patient is status post EGD x 2 for hemostasis of bleeding duodenal ulcer. His tology pending. H&H is stable and patient denies any overt GIB symptoms. Continues PPI ggt. Diet advanced to clears. Denies any abdominal pain, nausea, or vomiting. Review of Systems Constitutional: no problem reported Gastrointestinal: as per Subjective / HPI Physical Exam Constitutional: WD/WN, vitals as above Respiratory: normal respiratory effort, lungs clear to auscultation Cardiovascular: RRR, no murmur, no edema Gastrointestinal (Abdomen): Inspection/Auscultation: normal bowel sounds Percussion/Palpation: abdomen soft; abdomen nontender, no guarding and abdomen not rigid Psychiatric: A+Ox3, euthymic affect Results & Data Results & Data Vital Signs (Past 12 Hours) Vital Signs Temp Pulse Pulse Resp BP Pulse Ox O2 Del Method 12/14/23 07:32 36.8 C 56 L 19 107/54 L 93 Room Air 12/14/23 07:00 71 12/14/23 02:34 36.7 C 82 18 102/61 92 Room Air 12/13/23 23:00 75 Diagnostic Findings Laboratory Results WBC 9.69 K/ul (4.8-10.8) 12/14/23 07:42 RBC 2.44 M/uL (4.70-6.10) L 12/14/23 07:42 Hgb 7.2 g/dl (14.0-18.0) L 12/14/23 07:42 Hct 22.3 % (42.0-52.0) L 12/14/23 07:42 MCV 91.4 fL (80.0-100.0) 12/14/23 07:42 MCH 29.5 pg (25.0-34.0) 12/14/23 07:42 MCHC 32.3 g/dL (32.0-36.0) 12/14/23 07:42 RDW Std Deviation 52.0 fL (36.4-46.3) H 12/14/23 07:42 RDW Coeff of Lucero 17.8 % (11.5-14.5) H 12/14/23 07:42 Plt Count 160 K/uL (130-400) 12/14/23 07:42 MPV 10.4 fL (9.4-12.4) 12/14/23 07:42 Immature Gran % (Auto) 0.6 % 12/11/23 05:47 Neut % (Auto) 77.0 % 12/11/23 05:47 Lymph % (Auto) 14.7 % 12/11/23 05:47 [place] % (Auto) 7.4 % 12/11/23 05:47 Eos % (Auto) 0.1 % 12/11/23 05:47 Baso % (Auto) 0.2 % 12/11/23 05:47 Neut # (Auto) 10.84 K/uL (1.40-6.50) H 12/11/23 05:47 Lymph # (Auto) 2.06 K/uL (1.20-3.40) 12/11/23 05:47 [place] # (Auto) 1.04 K/uL (0.11-0.59) H 12/11/23 05:47 Eos # (Auto) 0.01 K/uL (0.00-0.50) 12/11/23 05:47 Baso # (Auto) 0.03 K/uL (0.00-0.20) 12/11/23 05:47 Immature Gran # (Auto) 0.08 K/uL (0.01-0.20) 12/11/23 05:47 Absolute Nucleated RBC 0.04 K/uL (0.00-0.12) 12/14/23 07:42 Nucleated RBC % (auto) 0.4 % 12/14/23 07:42 Polychromasia 1+ 12/11/23 05:47 PT 11.3 Seconds (9.0-12.0) 12/10/23 11:32 INR 1.0 (0.9-1.1) 12/10/23 11:32 APTT 21 Seconds (21-31) 12/10/23 11:32 PTT Ratio 0.7 12/10/23 11:32 Sodium 138 mmol/L (136-145) 12/14/23 07:42 Potassium 3.4 mmol/L (3.5-5.1) L 12/14/23 07:42 Chloride 106 mmol/L (98-107) 12/14/23 07:42 Carbon Dioxide 30 mmol/L (21-32) 12/14/23 07:42 Anion Gap 2 (3-11) L 12/14/23 07:42 BUN 16 mg/dl (6-23) 12/14/23 07:42 Creatinine 1.15 mg/dl (0.6-1.4) 12/14/23 07:42 Est Cr Clr Drug Dosing 75.6 ml/min 12/14/23 07:42 Est GFR ( Amer) 72.3 ml/min 12/14/23 07:42 Est GFR (Non-Af Amer) 62.3 ml/min 12/14/23 07:42 BUN/Creatinine Ratio 13.9 (10-20) 12/14/23 07:42 Glucose 101 mg/dl (70-99(Fasting)) H 12/14/23 07:42 Calcium 7.7 mg/dl (8.6-10.3) L 12/14/23 07:42 Magnesium 2.0 mg/dl (1.7-2.4) 12/10/23 11:32 Total Bilirubin 0.7 mg/dl (0.2-1.0) 12/10/23 11:32 AST 16 U/L (13-39) 12/10/23 11:32 ALT 17 U/L (7-52) 12/10/23 11:32 Alkaline Phosphatase 48 U/L (34-104) 12/10/23 11:32 Troponin I High Sens 26.0 pg/ml (0-20) H 12/10/23 17:55 C-Reactive Protein < 0.50 mg/dl (0-0.5) 12/11/23 15:44 Total Protein 6.4 gm/dl (6.0-8.3) 12/10/23 11:32 Albumin 4.1 gm/dl (3.4-5.0) 12/10/23 11:32 Globulin 2.3 gm/dl (2.5-4.0) L 12/10/23 11:32 Albumin/Globulin Ratio 1.8 (0.9-2) 12/10/23 11:32 Lipase 26 U/L (11-82) 12/10/23 11:32 Procalcitonin 0.06 ng/ml (0-0.5) 12/11/23 15:44 TSH 2.281 uIu/ml (0.300-4.500) 12/11/23 05:47 Urine Color Yellow 12/10/23 13:46 Urine Appearance Clear (Clear) 12/10/23 13:46 Urine pH 5.0 (4.5-7.5) 12/10/23 13:46 Ur Specific [place] 1.024 (1.000-1.030) 12/10/23 13:46 Urine Protein Negative (Negative) 12/10/23 13:46 Urine Glucose (UA) Negative (Negative) 12/10/23 13:46 Urine Ketones Trace (Negative) H 12/10/23 13:46 Urine Blood Negative (Negative) 12/10/23 13:46 Urine Nitrite Negative (Negative) 12/10/23 13:46 Urine Bilirubin Negative (Negative) 12/10/23 13:46 Urine Urobilinogen Negative (Negative) 12/10/23 13:46 Ur Leukocyte Esterase 1+ (Negative) H 12/10/23 13:46 Urine WBC (Auto) 1-5 /hpf (0-5) 12/10/23 13:46 Urine RBC (Auto) 0-4 /hpf (0-4) 12/10/23 13:46 U Hyaline Cast (Auto) 1-5 /lpf (0-5) 12/10/23 13:46 U Epithel Cells (Auto) 10-20 /lpf (0-5) H 12/10/23 13:46 Urine Bacteria (Auto) Negative (Negative) 12/10/23 13:46 Blood Type A Positive 12/13/23 08:49 Blood Type Recheck A Positive 12/11/23 05:47 Antibody Screen NEGATIVE 12/13/23 08:49 Crossmatch See Detail 12/13/23 08:49 Impressions Chest X-Ray 12/10/23 12:08 SINGLE VIEW CHEST CLINICAL HISTORY: Atypical chest pain. FINDINGS: An AP, portable, upright chest radiograph is compared to study dated 08/28/2016. The heart is enlarged. The pulmonary vasculature is noncongested. Chronic interstitial thickening is similar to previous. There is chronic elevation of the right hemidiaphragm with mild bibasilar scarring/atelectasis. A calcified granuloma is seen in the left lower lung. No airspace consolidation or large pleural effusion is identified. No pneumothorax is seen. The skeletal structures are osteopenic. The bony thorax is grossly intact. IMPRESSION: Cardiomegaly with no active disease in the chest. ACT 112: Negative or not required by law. Electronically signed by: Eugenio Frias M.D. 12/10/2023 12:41 PM PG Care Time/CCT Total # of Minutes Spent Total Time Spent with Patient: Total time spent is greater than 50% in coordination of care (as documented) at patient's floor/unit and/or counseling patient: Coding Level of Care Code 35717 SUB INP/OBS CARE 3/50MIN Diagnoses Acute blood loss anemia D62 Duodenal bulb ulcer K26.9
[2023-12-14] MEDS: ACETAMINOPHEN 1,000 MG/100 ML VIAL IV PRN (13:41)
--- NOTE | 2023-12-14 22:13 | Hospitalist Progress Note ---
Date of Service December 14, 2023 Assessment & Plan (1) Acute upper gastrointestinal bleeding: Plan: Suspected based on melena and new anemia Pantoprazole 40 mg IV BID Biopsied. - Gastritis. Biopsied. - Non-bleeding duodenal ulcer with a visible vessel. Injected. Treated with bipolar cautery. Recommendation: - [facility]. - Advance diet as tolerated today. -protonix drip for 72 hours then BID thereafter for minimum 2 weeks -supportive care, IVFs - Await pathology results 12/12 Patient will be placed again NPO. Called [facility] to [place] patient for IR. [facility] recommends another upper endoscopy. Repeat upper scope shows: same bleeding ulcer. Patient has required multiple units of PRBC updated family. On 12/13 Patient remains on NPO. Hemoglobin is downtrending but the rate does appear to be decreased. HIs BMs have also decreased. will transfuse another unit. UPdated [facility], would like to monitor for another day. On 12/14 Hemoglobin has been stable. WIll transfuse one additonal unit as blood count is at 7.[address] on a clear liquid diet. willl continue protonix drip and monitor. (2) Acute blood loss anemia: Plan: H&H q.6 hourly Transfuse < 7 (3) Paroxysmal atrial fibrillation: Plan: New onset No anticoagulation due to concurrent acute GI bleed Rate control with metoprolol 5 mg IV now and then restart his usual metoprolol tartrate which he missed this morning appears sinus (4) Non-sustained ventricular tachycardia: Plan: TTE (5) Hyperlipidemia: Plan: Continue atorvastatin (6) Hypertension: Plan: Hold irbesartan in setting of GI bleed Continue metoprolol for rate control Plan VTE Prophyalxis - chemical contraindicate Disposition - admit to med/tele Admission and Anticipated Discharge Date Admission Date: December 10, 2023 Subjective 73 yo male reports no new symptoms. Review of Systems Review of Systems: All systems reviewed & are unremarkable except as noted in HPI & below Physical Exam Constitutional: WD/WN, vitals as above Respiratory: normal respiratory effort, lungs clear to auscultation Cardiovascular: RRR, no murmur, no edema Gastrointestinal (Abdomen): normal bowel sounds, soft, nontender, no hepatosplenomegaly Skin: no rashes, warm and dry Psychiatric: Orientation: alert and oriented x 3 Affect: euthymic affect Results & Data Results & Data Vital Signs (Past 12 Hours) Vital Signs Temp Pulse Pulse Resp BP BP Pulse Ox 12/14/23 21:15 114/62 12/14/23 19:09 36.7 C 76 20 119/67 92 12/14/23 18:02 36.7 C 62 16 108/77 97 12/14/23 18:00 12/14/23 15:09 36.6 C 66 122/72 12/14/23 14:54 36.6 C 64 16 113/64 99 12/14/23 14:36 36.8 C 68 14 102/64 97 12/14/23 11:39 36.7 C 73 20 115/66 98 Pulse Ox O2 Del Method O2 Del Method 12/14/23 21:15 12/14/23 19:09 Room Air 12/14/23 18:02 12/14/23 18:00 97 Room Air 12/14/23 15:09 12/14/23 14:54 12/14/23 14:36 12/14/23 11:39 Room Air PG Care Time/CCT Total # of Minutes Spent Total Time Spent with Patient: Total time spent is greater than 50% in coordination of care (as documented) at patient's floor/unit and/or counseling patient: Coding Level of Care Code 62128 SUB INP/OBS CARE 2/35MIN Diagnoses Acute upper gastrointestinal bleeding K92.2 Acute blood loss anemia D62 Paroxysmal atrial fibrillation I48.0 Non-sustained ventricular tachycardia I47.29 Hyperlipidemia E78.5 Hypertension I10
[2023-12-14 23:09] LABS: Hematocrit (blood only) 27.1 % (42.0-52.0); Hemoglobin 8.9 g/dl (14.0-18.0)
[2023-12-15] MEDS: Nursing to Pharmacy Communication SCH (00:40)
[2023-12-15 06:59] LABS: Hematocrit (blood only) 26.7 % (42.0-52.0); Hemoglobin 8.8 g/dl (14.0-18.0); Mean Corpuscular Hemoglobin 29.7 pg (25.0-34.0); Mean Corpuscular Volume 90.2 fL (80.0-100.0); Mean Platelet Volume 10.2 fL (9.4-12.4); Nucleated RBC # (auto) 0.02 K/uL (0.00-0.12); Nucleated RBC % (auto) 0.2 %; Platelet Count 194 K/uL (130-400); RDW Coefficient of Variation 17.8 % (11.5-14.5); RDW Standard Deviation 51.2 fL (36.4-46.3); Red Blood Count 2.96 M/uL (4.70-6.10); White Blood Count 9.11 K/ul (4.8-10.8)
[2023-12-15 07:31] LABS: BUN Creatinine Ratio 9.9 (10-20); Calcium 8.1 mg/dl (8.6-10.3); Creatinine Clr Calc Pharmacy 86.5 ml/min; Est GFR (African American) 84.5 ml/min; Est GFR (Non-African American) 72.9 ml/min; Potassium 3.4 mmol/L (3.5-5.1)
--- NOTE | 2023-12-15 22:22 | Hospitalist Progress Note ---
Date of Service December 15, 2023 Assessment & Plan (1) Acute upper gastrointestinal bleeding: Plan: Suspected based on melena and new anemia Pantoprazole 40 mg IV BID Biopsied. - Gastritis. Biopsied. - Non-bleeding duodenal ulcer with a visible vessel. Injected. Treated with bipolar cautery. Recommendation: - [facility] patient to [facility] for [facility] care. - Advance diet as tolerated today. -protonix drip for 72 hours then BID thereafter for minimum 2 weeks -supportive care, IVFs - Await pathology results 12/12 Patient will be placed again NPO. Called [facility] [place] for [place]. [facility] [place] another upper endoscopy. Repeat upper scope shows: same bleeding ulcer. Patient has required multiple units of PRBC updated family. On 12/13 Patient remains on NPO. Hemoglobin is downtrending but the rate does appear to be decreased. HIs BMs have also decreased. will transfuse another unit. UPdated [facility], would like to monitor for another day. On 12/14 Hemoglobin has been stable. WIll transfuse one additonal unit as blood count is at 7.[address] on a clear liquid diet. willl continue protonix drip and monitor. On 12/15 Hemoglobin remains stable. advance diet to soft. (2) Acute blood loss anemia: Plan: H&H q.6 hourly Transfuse < 7 (3) Paroxysmal atrial fibrillation: Plan: New onset No anticoagulation due to concurrent acute GI bleed Rate control with metoprolol 5 mg IV now and then restart his usual metoprolol tartrate which he missed this morning appears sinus (4) Non-sustained ventricular tachycardia: Plan: TTE (5) Hyperlipidemia: Plan: Continue atorvastatin (6) Hypertension: Plan: Hold irbesartan in setting of GI bleed Continue metoprolol for rate control Plan VTE Prophyalxis - chemical contraindicate Disposition - admit to med/tele Admission and Anticipated Discharge Date Admission Date: December 10, 2023 Subjective Patient reports no new bloody BMs Review of Systems Review of Systems: All systems reviewed & are unremarkable except as noted in HPI & below Physical Exam Constitutional: WD/WN, vitals as above Respiratory: normal respiratory effort, lungs clear to auscultation Cardiovascular: RRR, no murmur, no edema Gastrointestinal (Abdomen): normal bowel sounds, soft, nontender, no hepatosplenomegaly Skin: no rashes, warm and dry Psychiatric: Orientation: alert and oriented x 3 Affect: euthymic affect Results & Data Results & Data Vital Signs (Past 12 Hours) Vital Signs Temp Pulse Pulse Resp BP Pulse Ox O2 Del Method 12/15/23 19:24 37.0 C 78 20 110/64 95 Room Air 12/15/23 15:44 74 12/15/23 15:21 36.8 C 67 18 115/65 96 Room Air 12/15/23 11:26 71 12/15/23 11:18 36.8 C 49 L 20 102/63 96 Room Air PG Care Time/CCT Total # of Minutes Spent Total Time Spent with Patient: Total time spent is greater than 50% in coordination of care (as documented) at patient's floor/unit and/or counseling patient: Coding Level of Care Code 01499 SUB INP/OBS CARE 2/35MIN Diagnoses Acute upper gastrointestinal bleeding K92.2 Acute blood loss anemia D62 Paroxysmal atrial fibrillation I48.0 Non-sustained ventricular tachycardia I47.29 Hyperlipidemia E78.5 Hypertension I10
[2023-12-16] MEDS: ACETAMINOPHEN 325 MG TAB PO PRN (03:25)
[2023-12-16 08:06] LABS: Hematocrit (blood only) 25.3 % (42.0-52.0); Hemoglobin 8.4 g/dl (14.0-18.0); Mean Corpuscular Hemoglobin 29.5 pg (25.0-34.0); Mean Corpuscular Hgb Conc 33.2 g/dL (32.0-36.0); Mean Corpuscular Volume 88.8 fL (80.0-100.0); Mean Platelet Volume 10.1 fL (9.4-12.4); Platelet Count 202 K/uL (130-400); RDW Coefficient of Variation 17.2 % (11.5-14.5); RDW Standard Deviation 52.5 fL (36.4-46.3); Red Blood Count 2.85 M/uL (4.70-6.10); White Blood Count 8.45 K/ul (4.8-10.8)
[2023-12-16 08:45] LABS: Calcium 8.2 mg/dl (8.6-10.3); Potassium 3.5 mmol/L (3.5-5.1)
[2023-12-16 08:51] LABS: BUN Creatinine Ratio 7.1 (10-20); Est GFR (African American) 86.6 ml/min; Est GFR (Non-African American) 74.7 ml/min
[2023-12-16 18:51] LABS: Hematocrit (blood only) 26.4 % (42.0-52.0); Hemoglobin 8.6 g/dl (14.0-18.0)
--- NOTE | 2023-12-16 23:40 | Hospitalist Progress Note ---
Date of Service December 16, 2023 Assessment & Plan (1) Acute upper gastrointestinal bleeding: Plan: Acute duodenal bulb ulcer with GI bleed Suspected based on melena and new anemia Endoscopy showed Biopsied. - Gastritis. Biopsied. - Non-bleeding duodenal ulcer with a visible vessel. Injected. Treated with bipolar cautery. Recommendation: - Return patient to [facility] care. - Advance diet as tolerated today. -protonix drip for 72 hours then BID thereafter for minimum 2 weeks -supportive care, IVFs - Await pathology results Patient has required a second upper endoscopy as he had another GI bleed, same location. Patient required about 6 units of PRBC over cours of hospital stay. Had multiple discussions with [facility] for transfer but transfer not accepted. Thankfully Upper GI bleed appears to have stopped, patients diet has been slowly improving/advancing over past few days. Still on protonix drip. can transition to BID dosing on 12/17 if hemoglobin remains stable. If hemoglobin remains stable, patient can be discharged on 12/17 (2) Acute blood loss anemia: Plan: H&H q.6 hourly Transfuse < 7 (3) Paroxysmal atrial fibrillation: Plan: New onset No anticoagulation due to concurrent acute GI bleed Rate control with metoprolol 5 mg IV now and then restart his usual metoprolol tartrate which he missed this morning appears sinus (4) Non-sustained ventricular tachycardia: Plan: TTE (5) Hyperlipidemia: Plan: Continue atorvastatin (6) Hypertension: Plan: Hold irbesartan in setting of GI bleed Continue metoprolol for rate control Plan VTE Prophyalxis - chemical contraindicate Disposition - admit to med/tele Admission and Anticipated Discharge Date Admission Date: December 10, 2023 Subjective Patient reports no new symptoms. Review of Systems Review of Systems: All systems reviewed & are unremarkable except as noted in HPI & below Physical Exam Constitutional: WD/WN, vitals as above Respiratory: normal respiratory effort, lungs clear to auscultation Cardiovascular: RRR, no murmur, no edema Gastrointestinal (Abdomen): normal bowel sounds, soft, nontender, no hepatosplenomegaly Skin: no rashes, warm and dry Psychiatric: Orientation: alert and oriented x 3 Affect: euthymic affect Results & Data Results & Data Vital Signs (Past 12 Hours) Vital Signs Temp Pulse Pulse Resp BP Pulse Ox O2 Del Method 12/16/23 22:52 36.6 C 75 20 101/56 L 96 Room Air 12/16/23 19:49 36.8 C 70 20 118/72 96 Room Air 12/16/23 15:13 63 12/16/23 14:00 36.5 C 88 18 114/74 96 Room Air 12/16/23 12:00 36.7 C 84 16 118/61 95 Room Air PG Care Time/CCT Total # of Minutes Spent Total Time Spent with Patient: Total time spent is greater than 50% in coordination of care (as documented) at patient's floor/unit and/or counseling patient: Coding Level of Care Code 47056 SUB INP/OBS CARE 2/35MIN Diagnoses Acute upper gastrointestinal bleeding K92.2 Acute blood loss anemia D62 Paroxysmal atrial fibrillation I48.0 Non-sustained ventricular tachycardia I47.29 Hyperlipidemia E78.5 Hypertension I10
[2023-12-17 08:01] LABS: Hematocrit (blood only) 26.7 % (42.0-52.0); Hemoglobin 8.5 g/dl (14.0-18.0); Mean Corpuscular Hemoglobin 28.8 pg (25.0-34.0); Mean Corpuscular Hgb Conc 31.8 g/dL (32.0-36.0); Mean Corpuscular Volume 90.5 fL (80.0-100.0); Mean Platelet Volume 9.8 fL (9.4-12.4); Platelet Count 216 K/uL (130-400); RDW Coefficient of Variation 16.9 % (11.5-14.5); RDW Standard Deviation 53.2 fL (36.4-46.3); Red Blood Count 2.95 M/uL (4.70-6.10); White Blood Count 7.28 K/ul (4.8-10.8)
--- NOTE | 2023-12-17 08:02 | Hospitalist Progress Note ---
Date of Service December 17, 2023 Assessment & Plan (1) Acute upper gastrointestinal bleeding: Plan: Suspected based on melena and new anemia Pantoprazole 40 mg IV BID Biopsied. - Gastritis. Biopsied. - Non-bleeding duodenal ulcer with a visible vessel. Injected. Treated with bipolar cautery. Recommendation: -protonix drip for 72 hours then BID thereafter for 12/12. concern for rebleeding Called [facility] to transfer patient for IR. [facility] recommends another upper endoscopy.Repeat upper scope shows:same bleeding ulcer. Patient has required multiple units of PRBC after initial instability, and transfusion, pt has stabilized with acute blood loss anemia hypotension from blood loss, hold irbesartan (2) Paroxysmal atrial fibrillation: Plan: New onset No anticoagulation due to concurrent acute GI bleed Rate control with metoprolol 5 mg IV initially and return tousual metoprolol ta rtrate was concerned for non sustained VT, now in NSR (3) Hyperlipidemia: Plan: Continue atorvastatin Plan VTE Prophyalxis - chemical contraindicate Admission and Anticipated Discharge Date Admission Date: December 10, 2023 Results & Data Results & Data Vital Signs (Past 12 Hours) Vital Signs Temp Pulse Pulse Resp BP Pulse Ox O2 Del Method 12/17/23 07:37 98.2 F 68 19 111/68 95 Room Air 12/17/23 03:09 97.7 F 65 18 98/54 L 97 Room Air 12/16/23 22:52 97.9 F 75 20 101/56 L 96 Room Air 12/16/23 22:00 70 PG Care Time/CCT Total # of Minutes Spent Total Time Spent with Patient: Total time spent is greater than 50% in coordination of care (as documented) at patient's floor/unit and/or counseling patient: Coding Diagnoses Acute upper gastrointestinal bleeding K92.2 Paroxysmal atrial fibrillation I48.0 Hyperlipidemia E78.5
[2023-12-17 08:18] LABS: BUN Creatinine Ratio 5.6 (10-20); Calcium 8.2 mg/dl (8.6-10.3); Creatinine Clr Calc Pharmacy 81.1 ml/min; Est GFR (African American) 78.8 ml/min; Potassium 3.9 mmol/L (3.5-5.1)
--- NOTE | 2023-12-17 17:49 | Discharge Summary ---
Date of Service December 17, 2023 Admission HPI Per Admitting Provider Mliton Donovan is a 73 year old male who presents to the ER with dark diarrhea and red blood. Started yesterday but more today with associated lightheadedness. No prior GI bleed / ulcer. Reports having heartburn about once a month but doesn't take anything for this. Took ibuprofen a few days ago but arhtritis pain but nothing regularly. Taking a headache pill from [employer] which is suspected to contain aspirin and caffeine every few days. He reports a mild chest pressure when EMS arrived and he was given aspirin by EMS. No recent change in diet. He missed his medications this morning. While being admitted his rhythm changed to have runs of non sustained ventricular tachycardia and atrial fibrillation with rapid ventricular rate. He denied any significant symptoms in these rhythms. Principal Diagnosis upper GI bleed transfusion of 6 units of blood duodenal ulcer with visible vessel Discharge Exam abdomen is soft and non tender, mild lower extremity edema Discharge Data Allergies Allergy/AdvReac Type Severity Reaction Status Date / Time No Known Allergies Allergy Verified 12/10/23 13:50 Consultations 12/10/23 14:16 ED Decision to Admit Stat 12/10/23 18:01 Consult Gastroenterology Routine Procedures Performed Operation Date: 12/12/23 11:05 Actual Procedures p Esophagogastroduodenoscopy(Not Applicable) - Stephanie Campos Jr, MD Hospital Course (1) Acute upper gastrointestinal bleeding: Suspected based on melena and new anemia Pantoprazole 40 mg po BID Biopsied. - Gastritis. Biopsied.no signs of malignancy - Non-bleeding duodenal ulcer with a visible vessel. Injected. Treated with bipolar cautery. Recommendation: -protonix BID thereafter after drip completed 12/12. concern for rebleeding Called [facility] [place] for [place]. [facility] recommends another upper endoscopy.Repeat upper scope shows:same bleeding ulcer. Patient has required multiple units of PRBC after initial instability, and transfusion, pt has stabilized with acute blood loss anemia hypotension from blood loss, resolved restart irbesartan Pt will have follow up with pcp in a week and will follow up for GI resolution with [facility] Gastroenterology (2) Paroxysmal atrial fibrillation: New onset No anticoagulation due to concurrent acute GI bleed Rate control with metoprolol 5 mg IV initially and return to usual metoprolol tartrate was concerned for non sustained VT, now in NSR (3) Hyperlipidemia: Continue atorvastatin Total Time Total Time Spent Total Time Spent (In Minutes): It required greater than 30 minutes to prepare this patient for discharge. Discharge Plan Discharge Items Patient Disposition: Home - Self-Care Reason For Visit: GI BLEED, ACUTE BLOOD LOSS ANEMIA Discharge Diagnosis: bleeding ulcer transfusion of 6 units of blood Activity: Per Instructions section Activity Comment: slowly increase activity Non-emergency contact: Primary Care Provider and Payment Processor Call non-emergency contact if: your symptoms worsen Follow-up/Referrals: Art Alatorre, [Primary Care Provider] - 12/22/23 3:00 pm Diet: Regular Addtl Attending Provider Instructions: take all of your Protonix prescription avoid acid like, irritating foods, avoid ibuprofen, limit aspirin, and also limit caffeine and alcohol please return if you do not feel well, have increasing black bowel movements or fever Pending Studies at Discharge: Yes Studies:: biopsy from ulcer Stand-Alone Forms: My [facility] [email or web address], Smoking Cessation Medications and DC Order Prescriptions: New pantoprazole [Protonix] 40 mg tablet,delayed release (DR/EC) 40 mg PO BID Qty: 60 2RF Continued atorvastatin 20 mg tablet 20 mg PO QPM Qty: 90 3RF irbesartan 300 mg tablet 300 mg PO QAM Qty: 90 3RF metoprolol tartrate 50 mg tablet 50 mg PO BID Qty: 180 3RF fluoride (sodium) 1.1 % paste 1 applic dental BID multivitamin [Daily Multi-Vitamin] Tablet 1 tab PO QAM Discontinued ascorbic acid (vitamin C) 100 mg tablet 100 mg PO QAM Headache Relief (acetam-caff) 500-65 mg Tablet 1 tab PO Q6H PRN (Reason: Headache) Discharge Orders: Discharge Order (Routine); Ordered 12/17/23 Ordered By: Vasyl Eugene Admission Data Admit Date/Time: 12/10/23 14:26 Attending Provider: Vasyl Eugene Admit Provider: Leonidas Donovan Primary Care Provider: Art Alatorre Other Providers: Leonidas Donovan; Clem Garvey Other Interventions: Discharge Summary Assessment (RN) Last Done: 12/17/23 14:25 Coding Level of Care Code 05755 INP/OBS DISCH >30 MIN Diagnoses Acute upper gastrointestinal bleeding K92.2 Paroxysmal atrial fibrillation I48.0 Hyperlipidemia E78.5
== END 2023-12-17 14:59 | disposition home or self-care (01) | DRG 378 ==
LOC: ED 11:12 → SUATTDRO 14:26 → EDINP 14:26 → 2W 17:40 → 2S 12-12 02:22

== ENCOUNTER 2024-07-12 20:57 | Inpatient (IN) ==
[2024-07-12 21:33] LABS: Basophils # (auto) 0.02 K/uL (0.00-0.20); Basophils % (auto) 0.2 %; Eosinophils # (auto) 0.01 K/uL (0.00-0.50); Eosinophils % (auto) 0.1 %; Hemoglobin 15.5 g/dl (14.0-18.0); Immature Granulocytes # (auto) 0.05 K/uL (0.01-0.20); Immature Granulocytes % (auto) 0.4 %; Lymphocytes # (auto) 0.84 K/uL (1.20-3.40); Lymphocytes % (auto) 6.6 %; Mean Corpuscular Hemoglobin 30.3 pg (25.0-34.0); Mean Corpuscular Hgb Conc 34.4 g/dL (32.0-36.0); Mean Corpuscular Volume 87.9 fL (80.0-100.0); Mean Platelet Volume 9.5 fL (9.4-12.4); Monocytes # (auto) 0.56 K/uL (0.11-0.59); Monocytes % (auto) 4.4 %; Neutrophils # (auto) 11.18 K/uL (1.40-6.50); Neutrophils % (auto) 88.3 %; Platelet Count 253 K/uL (130-400); RDW Coefficient of Variation 13.5 % (11.5-14.5); RDW Standard Deviation 43.3 fL (36.4-46.3); Red Blood Count 5.12 M/uL (4.70-6.10); White Blood Count 12.66 K/ul (4.8-10.8)
[2024-07-12 21:50] LABS: Albumin Globulin Ratio 1.5 (0.9-2); Albumin Level 4.6 gm/dl (3.4-5.0); BUN Creatinine Ratio 17.1 (10-20); Bilirubin,Total 1.1 mg/dl (0.2-1.0); Calcium 9.9 mg/dl (8.6-10.3); Creatinine Clr Calc Pharmacy 67.3 ml/min; Est GFR (African American) 66.1 ml/min; Est GFR (Non-African American) 57.1 ml/min; Potassium 4.1 mmol/L (3.5-5.1); Total Protein 7.6 gm/dl (6.0-8.3)
[2024-07-12 21:52] LABS: Appearance Urine Cloudy (Clear); Bacteria Urine Automated None Seen (None Seen); Bilirubin Urine Negative (Negative); Blood Urine 1+ (Negative); Cast Urine Automated 0-2 /lpf (0-2); Color Urine Yellow; Epithelial Cell Urine Auto 0-2 /hpf (0-2); Glucose Urine UA Negative (Negative); Ketones Urine 2+ (Negative); Leukocyte Esterase Urine 1+ (Negative); Nitrite Urine Negative (Negative); Protein Urine Negative (Negative); Specific Gravity Urine 1.018 (1.000-1.030); Urobilinogen Urine Negative (Negative)
[2024-07-12] MEDS: fentaNYL citrate PF 100 MCG/2 ML VIAL IV STA (22:14)
--- NOTE | 2024-07-12 22:26 | Emergency Department Note ---
Impression & Plan Hydroureteronephrosis, Hydronephrosis with urinary obstruction due to ureteral calculus, Acute UTI (urinary tract infection), Leukocytosis ED Provider Note HISTORY OF PRESENT ILLNESS: Patient is a 74-year-old male presenting with lower abdominal pain. Patient reports that he developed pain in his periumbilical and right lower quadrant starting early this afternoon. He describes it as a sharp and constant sensation. He denies nausea, vomiting or diarrhea. Denies any dysuria or hematuria. He reports the pain radiates into his right low back. He is on Eliquis for history of paroxysmal A-fib. He currently rates his pain a 9 out of 10. He denies any recent sick contact exposures. Denies any fevers at home. ROS: as above PHYSICAL EXAM: Constitutional: Patient appears in no acute distress. HENT: Head: Normocephalic and atraumatic. Eyes: EOMI, PERRL Mouth/Throat: Mucous membranes moist. Neck: Trachea midline. Neck supple. Cardiovascular: RRR, No murmurs, rubs or gallops. Intact distal pulses. Pulmonary/Chest: No respiratory distress. Breath sounds clear and equal bilaterally. No wheezes or rales. Abdominal: Abdomen soft, no tenderness, rebound or guarding. Musculoskeletal: No edema, tenderness or deformity noted. Skin: Warm and dry. No rash, erythema, pallor or cyanosis Psychiatric: Appropriate mood and affect for situation. Neurological: Alert and keenly responsive. CN II-XII grossly intact, moving all extremities equally and fully. MDM: - Vitals signs showed hypertension - History obtained via patient. History as above. - Chronic conditions affecting care: LBBB; BPH; HLD; paroxysmal AFib; HTN - Differential diagnoses include, but are not limited to: Aortic aneurysm; appendicitis; diverticulitis; ischemic colitis; inguinal hernia; testicular torsion; ureteral calculi; UTI - Order placed for continuous cardiac monitoring. At this time, monitor showed rate of 65 bpm with normal sinus rhythm, per my interpretation. - External medical records reviewed. Primary care visit note dated 03/23/2024 was reviewed. Patient was seen as a follow-up. He has a history of acute blood loss anemia. - Laboratory workup interpreted by myself showed leukocytosis (WBC 12.66); stable electrolytes; normal lipase - UA showed no bacteria, but noted to have WBCs and leukocyte esterase. - Patient given 50 mcg IV fentanyl on arrival. On reassessment pain still complaining of pain. Given 1g IV acetaminophen. - CT abdomen/pelvis with IV contrast showed 3 individual distal right ureteral stones. Noted to have a moderate right hydroureteronephrosis with right perinephric fat stranding. - Given CT findings and urinalysis, 2g IV rocephin ordered for antibiotic coverage. - Discussed case with urology ROBERTO, Chau Jennings. He came to evaluate the patient recommend admission to medicine. - Discussion was had with outsole caser about patient's case and need for admission - Hospitalist consulted for admission - [facility] ASSESSMENT AND PLAN: Diagnosis: Right hydroureteronephrosis; obstructive ureteral stones; acute UTI; leukocytosis Plan: Admit Past Med/Surg History Problem List (Updated 07/13/24 @ 01:19 by Maryana Merida MD) Leukocytosis (Acute) Acute UTI (urinary tract infection) (Acute) Hydronephrosis with urinary obstruction due to ureteral calculus (Acute) Hydroureteronephrosis (Acute) Nephrolithiasis Chronic anticoagulation Duodenal ulcer Phlegm in throat LBBB (left bundle branch block) Non-sustained ventricular tachycardia Paroxysmal atrial fibrillation Frequent PVCs (Acute) Acute blood loss anemia Elevated troponin I level (Acute) Anemia (Acute) Chest pain (Acute) Acute upper gastrointestinal bleeding (Acute) Osteoarthritis of right hip Senile purpura Left shoulder pain Idiopathic polyneuropathy History of colon polyps Encounter for pre-operative examination Tubular adenoma (~12/04/16) repeat in 5 years Melanoma in situ (Chronic) Inhibited sexual excitement (Acute) Impaired fasting glucose (Chronic) Hypertension Hearing loss (Acute) Diverticulosis of colon (Acute) BPH (benign prostatic hyperplasia) (Acute) Hyperlipidemia Medical History Iron deficiency anemia Duodenal bulb ulcer Left bundle branch block (LBBB) Iron deficiency anemia Hx of chest pain Idiopathic polyneuropathy BPH (benign prostatic hyperplasia) Melanoma per pcp, on forehead, no bx Hemorrhoids Hypertension Paroxysmal atrial fibrillation (~12/2023) admit to [facility] with GI bleed, Saw [facility] 03/21/24 , had a Holter Monitor, no blood thinners Hx of transfusion of packed red blood cells (~12/2023) 6 units Nonsustained ventricular tachycardia (12/2023) during admit to [facility] 12/2023, following up [facility] 03/2024 / Holter Monitor Duodenal bulb ulcer (12/2023) Admit to [facility] 12/2023 with GI Bleed, transfused with 6 U PRBC's Diverticulosis Hx of colonic polyps Hx of gastrointestinal hemorrhage (~12/2023) Duodenal Ulcer, admit to [facility], 6 Units PRBC's Hyperlipidemia Surgical History Hx of colonoscopy with polypectomy Hx of esophagogastroduodenoscopy History of hernia repair (1999) Family History Father Coronary heart disease CHF (congestive heart failure) Mother Brain cancer Sister Cancer Brother No problems noted. 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 Beliefs That Will Affect Care: None marital status: Current Living Situation: Alone current occupational status: retired Feels Safe at Home: Yes Childhood Exposure to Second-Hand Smoke: Yes Dental Care, Regularly: Yes Physical Activity Frequency: Daily Physical Activity Frequency Comment: walking or bicycle 60 minutes per workout Seatbelt Use: always Sunscreen Use: No Assistive Devices: Glasses Allergies Allergies Allergy/AdvReac Type Severity Reaction Status Date / Time No Known Allergies Allergy Verified 07/06/24 10:12 Home Meds Home Medications Medication Instructions Recorded Confirmed multivitamin (Daily Multi-Vitamin 1 tab PO QAM 11/17/19 07/13/24 tablet) fluoride (sodium) 1.1 % dental 1 applic dental BID 09/09/23 07/13/24 paste ferrous sulfate 142 mg (45 mg 142 mg PO QAM 01/21/24 07/13/24 iron) tablet,extended release pantoprazole 40 mg tablet,delayed 40 mg PO QAM 05/12/24 07/13/24 release (Protonix) Previous Rx's Medication Instructions Recorded atorvastatin 20 mg tablet 20 mg PO QPM #90 tabs 05/25/24 irbesartan 300 mg tablet 300 mg PO QAM #90 tabs 05/25/24 metoprolol tartrate 50 mg tablet 50 mg PO BID #180 tabs 05/25/24 apixaban 5 mg tablet (Eliquis) 5 mg PO BID #60 tabs 06/02/24 Results & Data (ED) Vital Signs Vital Signs - 24 hr 07/12/24 20:59 07/12/24 22:06 07/12/24 23:08 Temperature 36.7 C Temperature Source Oral Pulse Rate [Right Finger] 54 L 55 L Respiratory Rate 18 16 18 Respiratory Effort / Characteristics Non-Labored Spontaneous Respiratory Depth Normal Respiratory Pattern Blood Pressure [Right Arm] 150/77 H 160/90 H Blood Pressure Mean [Right Arm] 101 113 Pulse Oximetry 96 93 Oxygen Delivery Method Room Air Room Air Room Air Sepsis Recent Fever Within 48 Hours No Sepsis New/Unexplained Change in Mental Status No Sepsis Action Taken by Nursing No Action Required 07/13/24 01:00 Temperature Temperature Source Pulse Rate [Right Finger] 62 Respiratory Rate 18 Respiratory Effort / Characteristics Non-Labored Spontaneous Respiratory Depth Normal Respiratory Pattern Regular Blood Pressure [Right Arm] 145/89 H Blood Pressure Mean [Right Arm] 107 Pulse Oximetry 94 Oxygen Delivery Method Room Air Sepsis Recent Fever Within 48 Hours Sepsis New/Unexplained Change in Mental Status Sepsis Action Taken by Nursing Laboratory Data 07/12/24 21:10 07/12/24 21:10 Lab Results 07/12/24 07/12/24 Range/Units 21:10 21:35 WBC 12.66 H (4.8-10.8) K/ul RBC 5.12 (4.70-6.10) M/uL Hgb 15.5 (14.0-18.0) g/dl Hct 45.0 (42.0-52.0) % MCV 87.9 (80.0-100.0) fL MCH 30.3 (25.0-34.0) pg MCHC 34.4 (32.0-36.0) g/dL RDW Std Deviation 43.3 (36.4-46.3) fL RDW Coeff of Lucero 13.5 (11.5-14.5) % Plt Count 253 (130-400) K/uL MPV 9.5 (9.4-12.4) fL Immature Gran % (Auto) 0.4 % Neut % (Auto) 88.3 % Lymph % (Auto) 6.6 % Miner % (Auto) 4.4 % Eos % (Auto) 0.1 % Baso % (Auto) 0.2 % Neut # (Auto) 11.18 H (1.40-6.50) K/uL Lymph # (Auto) 0.84 L (1.20-3.40) K/uL Miner # (Auto) 0.56 (0.11-0.59) K/uL Eos # (Auto) 0.01 (0.00-0.50) K/uL Baso # (Auto) 0.02 (0.00-0.20) K/uL Immature Gran # (Auto) 0.05 (0.01-0.20) K/uL Sodium 139 (136-145) mmol/L Potassium 4.1 (3.5-5.1) mmol/L Chloride 101 (98-107) mmol/L Carbon Dioxide 28 (21-32) mmol/L Anion Gap 10 (3-11) BUN 21 (6-23) mg/dl Creatinine 1.23 (0.6-1.4) mg/dl Est Cr Clr Drug Dosing 67.3 ml/min Est GFR ( Amer) 66.1 ml/min Est GFR (Non-Af Amer) 57.1 ml/min BUN/Creatinine Ratio 17.1 (10-20) Glucose 144 H (70-99(Fasting)) mg/dl Calcium 9.9 (8.6-10.3) mg/dl Total Bilirubin 1.1 H (0.2-1.0) mg/dl AST 22 (13-39) U/L ALT 19 (7-52) U/L Alkaline Phosphatase 76 (34-104) U/L Total Protein 7.6 (6.0-8.3) gm/dl Albumin 4.6 (3.4-5.0) gm/dl Globulin 3.0 (2.5-4.0) gm/dl Albumin/Globulin Ratio 1.5 (0.9-2) Lipase 25 (11-82) U/L Urine Color Yellow Urine Appearance Cloudy A (Clear) Urine pH 7.0 (4.5-7.5) Ur Specific [place] 1.018 (1.000-1.030) Urine Protein Negative (Negative) Urine Glucose (UA) Negative (Negative) Urine Ketones 2+ H (Negative) Urine Blood 1+ H (Negative) Urine Nitrite Negative (Negative) Urine Bilirubin Negative (Negative) Urine Urobilinogen Negative (Negative) Ur Leukocyte Esterase 1+ H (Negative) Urine WBC (Auto) 6-10 H (0-5) /hpf Urine RBC (Auto) 11-20 H (0-2) /hpf U Hyaline Cast (Auto) 0-2 (0-2) /lpf U Epithel Cells (Auto) 0-2 (0-2) /hpf Urine Bacteria (Auto) None Seen (None Seen) Administered Medications Discontinued Medications Fentanyl Citrate (Fentanyl Citrate Pf 100 Mcg/2 Ml Vial) 50 mcg IV NOW STA Stop: 07/12/24 22:05 Last Admin: 07/12/24 22:14 Dose: 50 mcg Documented By: HENNYW Acetaminophen (Ofirmev) 1,000 mg in 100 mls @ 400 mls/hr IV NOW STA Stop: 07/12/24 23:46 Last Infusion: 07/12/24 23:53 Dose: Infused Documented By: Admin: 07/12/24 23:38 Dose: 400 mls/hr Documented By: HENNYW Ceftriaxone Sodium (Rocephin) 2,000 mg in 50 mls @ 100 mls/hr IV NOW STA Stop: 07/13/24 00:43 Last Admin: 07/13/24 00:45 Dose: 100 mls/hr Documented By: HENNYW Ioversol (Optiray 320 100ml) 93 ml IV ONCE ONE Stop: 07/12/24 22:46 Last Admin: 07/12/24 22:45 Dose: 93 ml Documented By: MESSI Imaging Data Radiologist's Impression: Abdomen/Pelvis CT 07/12/24 21:34 Exam(s): CT ABDOMEN + PELVIS With Contrast IV Amt: 93 ml opti 320 EXAM: CT Abdomen and Pelvis With Intravenous Contrast CLINICAL HISTORY: rlq abd pain. TECHNIQUE: Axial computed tomography images of the abdomen and pelvis with intravenous contrast. CTDI is 28 mGy and DLP is 1443 mGy-cm. Automated exposure control was utilized for the study. A dose lowering technique was utilized adhering to the principles of ALARA. CONTRAST: Patient received 93 ml opti 320 of IV contrast COMPARISON: No relevant prior studies available. FINDINGS: Lung bases: Unremarkable. No mass. No consolidation. ABDOMEN: Liver: Unremarkable. No mass. Gallbladder and bile ducts: Unremarkable. No calcified stones. No ductal dilation. Pancreas: Unremarkable. No mass. No ductal dilation. Spleen: Unremarkable. No splenomegaly. Adrenals: Unremarkable. No mass. Kidneys and ureters: There is at least 3 individual distal right ureteral stones noted immediately cranial to the right UVJ. The stones measure up to 9 mm in diameter with the stone burden extending overlying of approximately 17 mm (series 300; image 63). There is moderate right hydroureteronephrosis with significant right perinephric fat stranding. Additional nonobstructive nephrolithiasis noted bilaterally. The largest stone involving the inferior pole calyx on the left measures 7.4 mm. No left-sided hydronephrosis. Stomach and bowel: Moderate distention stomach with retained oral contents. No gastric mucosal thickening. No evidence for bowel obstruction. No asymmetric bowel mucosal abnormality. Diverticulosis of the sigmoid colon. No definitive diverticulitis. PELVIS: Appendix: No findings to suggest acute appendicitis. Bladder: The bladder is mildly distended. No bladder wall thickening or additional bladder stones. Reproductive: Prostatic hypertrophy. ABDOMEN and PELVIS: Intraperitoneal space: Unremarkable. No free air. No significant fluid collection. Bones/joints: Multilevel degenerative changes throughout the lumbar spine. No acute osseous abnormality. No dislocation. Soft tissues: Unremarkable. Vasculature: Unremarkable. No abdominal aortic aneurysm. Lymph nodes: Unremarkable. No enlarged lymph nodes. IMPRESSION: There is at least 3 individual distal right ureteral stones noted immediately cranial to the right UVJ. The stones measure up to 9 mm in diameter with the stone burden extending overlying of approximately 17 mm (series 300; image 63). There is moderate right hydroureteronephrosis with significant right perinephric fat stranding. Electronically signed by: Arias Little MD 07/12/24 23:47 PM Discharge Plan Visit Data Chief Complaint: Abdominal Pain Stated Complaint: SEVERE ABD PAIN ED Provider: Maryana Merida Discharge Problem: Hydroureteronephrosis, Hydronephrosis with urinary obstruction due to ureteral calculus, Acute UTI (urinary tract infection), Leukocytosis Forms Stand Alone Forms: My [facility] Prescriptions Prescriptions: No Action atorvastatin 20 mg tablet 20 mg PO QPM Qty: 90 3RF irbesartan 300 mg tablet 300 mg PO QAM Qty: 90 3RF metoprolol tartrate 50 mg tablet 50 mg PO BID Qty: 180 3RF fluoride (sodium) 1.1 % paste 1 applic dental BID multivitamin [Daily Multi-Vitamin] Tablet 1 tab PO QAM Eliquis 5 mg tablet 5 mg PO BID Qty: 60 11RF ferrous sulfate 142 mg (45 mg iron) tablet extended release 142 mg PO QAM pantoprazole [Protonix] 40 mg tablet,delayed release (DR/EC) 40 mg PO QAM Referrals Referrals: Art Alatorre DO [Primary Care Provider] -
[2024-07-12] MEDS: OPTIRAY 320 100ml IV ONE (22:45)
[2024-07-12] MEDS: ACETAMINOPHEN 1,000 MG/100 ML VIAL IV STA (23:38)
--- NOTE | 2024-07-12 23:47 | CT Scan Report ---
Exam(s): CT ABDOMEN + PELVIS With Contrast IV Amt: 93 ml opti 320 EXAM: CT Abdomen and Pelvis With Intravenous Contrast CLINICAL HISTORY: rlq abd pain. TECHNIQUE: Axial computed tomography images of the abdomen and pelvis with intravenous contrast. CTDI is 28 mGy and DLP is 1443 mGy-cm. Automated exposure control was utilized for the study. A dose lowering technique was utilized adhering to the principles of ALARA. CONTRAST: Patient received 93 ml opti 320 of IV contrast COMPARISON: No relevant prior studies available. FINDINGS: Lung bases: Unremarkable. No mass. No consolidation. ABDOMEN: Liver: Unremarkable. No mass. Gallbladder and bile ducts: Unremarkable. No calcified stones. No ductal dilation. Pancreas: Unremarkable. No mass. No ductal dilation. Spleen: Unremarkable. No splenomegaly. Adrenals: Unremarkable. No mass. Kidneys and ureters: There is at least 3 individual distal right ureteral stones noted immediately cranial to the right UVJ. The stones measure up to 9 mm in diameter with the stone burden extending overlying of approximately 17 mm (series 300; image 63). There is moderate right hydroureteronephrosis with significant right perinephric fat stranding. Additional nonobstructive nephrolithiasis noted bilaterally. The largest stone involving the inferior pole calyx on the left measures 7.4 mm. No left-sided hydronephrosis. Stomach and bowel: Moderate distention stomach with retained oral contents. No gastric mucosal thickening. No evidence for bowel obstruction. No asymmetric bowel mucosal abnormality. Diverticulosis of the sigmoid colon. No definitive diverticulitis. PELVIS: Appendix: No findings to suggest acute appendicitis. Bladder: The bladder is mildly distended. No bladder wall thickening or additional bladder stones. Reproductive: Prostatic hypertrophy. ABDOMEN and PELVIS: Intraperitoneal space: Unremarkable. No free air. No significant fluid collection. Bones/joints: Multilevel degenerative changes throughout the lumbar spine. No acute osseous abnormality. No dislocation. Soft tissues: Unremarkable. Vasculature: Unremarkable. No abdominal aortic aneurysm. Lymph nodes: Unremarkable. No enlarged lymph nodes. IMPRESSION: There is at least 3 individual distal right ureteral stones noted immediately cranial to the right UVJ. The stones measure up to 9 mm in diameter with the stone burden extending overlying of approximately 17 mm (series 300; image 63). There is moderate right hydroureteronephrosis with significant right perinephric fat stranding. Electronically signed by: Arias Little MD 07/12/24 23:47 PM
--- NOTE | 2024-07-13 00:22 | Urology Consultation ---
Date of Consultation July 13, 2024 Assessment & Plan (1) Nephrolithiasis: I discussed with the treating emergency room physician the patient is being admitted on the hospitalist service. From a urologic perspective we recommend the following: Provide analgesics Provide antiemetics Provide IV fluid for hydration Antibiotics in form of Rocephin have been initiated due to abnormal urinalysis. We recommend continue these for the present time Implement n.p.o. status At the present time the patient is nontoxic-appearing. He is normotensive without tachycardia or fever. He did have a slight leukocytosis but his renal function is also noted to be normal. Will try conservative measures evening but he will be reevaluated the morning of 07/13/2024 and determination will be made if patient will require cystoscopic intervention. History of Present Illness Reason for Consultation: Nephrolithiasis History of Present Illness This is a 74-year-old male who presented to the emergency department secondary to right-sided abdominal pain. Patient says that this pain began earlier today. He did not really have much in the way of his flank pain. He denies any fev ers, shakes, or chills. He did have associated nausea and vomiting. Patient notes that he has been able to urinate did not report any dysuria or hematuria but did note that his urine stream was not quite as strong as what it used to be. He notes he has never had a history of kidney stones in the past. Since arrival to hospital patient has had labs and imaging which independent reviewed. A CT scan of the abdomen pelvis showed the patient had approximately 3 distal right ureteral kidney stones near the ureterovesical junction. The stones measure up to 9 mm in diameter. There is moderate right hydronephrosis with some perinephric fat stranding noted on this study. Labs included CBC were white blood cell count was elevated 12.6. Hemoglobin and hematocrit as well as the platelet count were normal. Chemistry profile showed sodium and potassium as well as the BUN and creatinine were normal. Urinalysis showed cloudy urine which was negative for nitrites. There was 1+ leukocyte Estrace and 6-10 white blood cells per high-power field. There is no bacteria in the study. At the time my interview the patient was resting comfortably in bed he was in no distress. Allergies Allergy/AdvReac Type Severity Reaction Status Date / Time No Known Allergies Allergy Verified 07/06/24 10:12 Home Medications Medication Instructions Recorded Confirmed Type multivitamin (Daily Multi-Vitamin 1 tab PO QAM 11/17/19 07/06/24 History tablet) fluoride (sodium) 1.1 % dental 1 applic dental BID 09/09/23 07/06/24 History paste ferrous sulfate 142 mg (45 mg 142 mg PO QAM 01/21/24 07/06/24 History iron) tablet,extended release pantoprazole 40 mg tablet,delayed 40 mg PO QAM 05/12/24 07/06/24 History release (Protonix) atorvastatin 20 mg tablet 20 mg PO QPM #90 tabs 05/25/24 07/06/24 Rx irbesartan 300 mg tablet 300 mg PO QAM #90 tabs 05/25/24 07/06/24 Rx metoprolol tartrate 50 mg tablet 50 mg PO BID #180 tabs 05/25/24 07/06/24 Rx apixaban 5 mg tablet (Eliquis) 5 mg PO BID #60 tabs 06/02/24 07/06/24 Rx Patient History Medical History Iron deficiency anemia Duodenal bulb ulcer Left bundle branch block (LBBB) Iron deficiency anemia Hx of chest pain Idiopathic polyneuropathy BPH (benign prostatic hyperplasia) Melanoma per pcp, on forehead, no bx Hemorrhoids Hypertension Paroxysmal atrial fibrillation (~12/2023) admit to [facility] with GI bleed, [place] [facility] [place] , had a Holter Monitor, no blood thinners Hx of transfusion of packed red blood cells (~12/2023) 6 units Nonsustained ventricular tachycardia (12/2023) during admit to [facility] 12/2023, following up [facility] [place] / Holter Monitor Duodenal bulb ulcer (12/2023) Admit to [facility] 12/2023 with GI Bleed, transfused with 6 U PRBC's Diverticulosis Hx of colonic polyps Hx of gastrointestinal hemorrhage (~12/2023) Duodenal Ulcer, admit to [facility], 6 Units PRBC's Hyperlipidemia Surgical History Hx of colonoscopy with polypectomy Hx of esophagogastroduodenoscopy History of hernia repair (1999) Family History Father Coronary heart disease CHF (congestive heart failure) Mother Brain cancer Sister Cancer Brother No problems noted. Son Myocardial infarction, Onset Age: 43 from AMI age 50 Cancer esophageal Denies family history of Ovarian cancer Prostate cancer Breast cancer Colorectal cancer Social History Smoking Status: Never smoker Second Hand Exposure: No; Do You Dip or Chew Tobacco: No; Hx Alcohol Use: Yes Alcohol type: beer Alcohol Intake Frequency Comment: 2-3 beers per week Hx Substance Use: No Preferred Language: Yi Communication Ability: Effective Visual Impairment: No Limitations Hearing Ability: Normal Sheet Metal Insulator Required: No Beliefs That Will Affect Care: None marital status: Current Living Situation: Alone current occupational status: retired Feels Safe at Home: Yes Childhood Exposure to Second-Hand Smoke: Yes Dental Care, Regularly: Yes Physical Activity Frequency: Daily Physical Activity Frequency Comment: walking or bicycle 60 minutes per workout Seatbelt Use: always Sunscreen Use: No Assistive Devices: Glasses Review of Systems Review of Systems: All systems reviewed & are unremarkable except as noted in HPI & below Physical Exam Constitutional: WD/WN, vitals as above Eyes: Wears glasses ENMT: Ears: no hearing impairment and no external ear abnormality Neck: trachea midline Respiratory: normal respiratory effort; no respiratory distress and no labored breathing Cardiovascular: Rate/Rhythm: regular rate and regular rhythm Gastrointestinal (Abdomen): At the time my exam the patient's abdomen was soft and nondistended. There is minimal pain with palpation. Musculoskeletal: No calf tenderness Skin: no rashes Neurologic: moves all extremities Genitourinary: No CVA tenderness with percussion bilaterally Results & Data Vital Signs (Past 12 Hours) Vital Signs Temp Pulse Resp BP Pulse Ox O2 Del Method 07/12/24 23:08 55 L 18 160/90 H 93 Room Air 07/12/24 22:06 36.7 C 54 L 16 150/77 H 96 Room Air 07/12/24 20:59 18 Room Air PG Care Time/CCT Total # of Minutes Spent Total Time Spent with Patient: Total time spent is greater than 50% in coordination of care (as documented) at patient's floor/unit and/or counseling patient: Coding Level of Care Code 32879 INT INP/OBS CARE 3/75MIN Diagnoses Nephrolithiasis N20.0
[2024-07-13] MEDS: cefTRIAXone SODIUM 2,000 MG/50 ML BAG IV STA (00:45)
--- NOTE | 2024-07-13 00:58 | History & Physical Report ---
Date of Service July 13, 2024 Assessment & Plan (1) Hydronephrosis with urinary obstruction due to ureteral calculus: (2) Right distal ureteral calculus: (3) Acute UTI (urinary tract infection): (4) Hydroureteronephrosis: (5) Chronic anticoagulation: (6) Duodenal ulcer: (7) Non-sustained ventricular tachycardia: (8) Paroxysmal atrial fibrillation: (9) Idiopathic polyneuropathy: (10) BPH (benign prostatic hyperplasia): (11) Hyperlipidemia: Plan At least 3 distal right ureteral calculi/moderate right hydroureteronephrosis/BPH- N.p.o. except medications Tamsulosin 0.4 mg p.o. every morning Ceftriaxone 2 g IV daily Follow urine culture and sensitivity Acetaminophen 1 g IV every 8 hours as needed for mild pain or fever Toradol 15 mg IV every 6 hours as needed for moderate pain Morphine sulfate 4 mg IV every 3 hours as needed for severe pain Zofran 4 mg IV every 6 hours as needed NSS at 80 mL/h x 1 L Consult urology Paroxysmal atrial fibrillation/hypertension/LBBB/history nonsustained V. tach- Last dosing of apixaban was at 8 AM on 07/12 Hold irbesartan Change metoprolol tartrate from 50 mg p.o. twice daily to 25 mg p.o. twice daily, due to heart rate in the low 50s Duodenal ulcer/history of upper GI bleeding- Change pantoprazole to 40 mg p.o. daily to IV daily History of Present Illness Chief Complaint: The patient developed the acute onset of right sided flank and abdominal pain that began earlier this afternoon, and with the persistence into this evening, he presented to the emergency department for assessment Primary Care Provider: Art Alatorre DO The patient is a 74-year-old male with a past medical history including duodenal ulcer, left bundle branch block, nonsustained V. tach, paroxysmal atrial fibrillation on chronic anticoagulation with apixaban, idiopathic polyneuropathy, melanoma in situ, hearing loss, BPH, hyperlipidemia. He presents to the emergency department with acute onset of pain as noted above. He did also have the sense of needing to move his bowels when the pain acutely developed. Workup in the emergency department included a CT scan of abdomen pelvis, which showed a least 3 distal right ureteral stones near the right UVJ, and moderate right hydroureteronephrosis. Patient has had no previous occurrence of kidney stones. Allergies Allergy/AdvReac Type Severity Reaction Status Date / Time No Known Allergies Allergy Verified 07/06/24 10:12 Home Medications Medication Instructions Recorded Confirmed Type multivitamin (Daily Multi-Vitamin 1 tab PO QAM 11/17/19 07/13/24 History tablet) fluoride (sodium) 1.1 % dental 1 applic dental BID 09/09/23 07/13/24 History paste ferrous sulfate 142 mg (45 mg 142 mg PO QAM 01/21/24 07/13/24 History iron) tablet,extended release pantoprazole 40 mg tablet,delayed 40 mg PO QAM 05/12/24 07/13/24 History release (Protonix) atorvastatin 20 mg tablet 20 mg PO QPM #90 tabs 05/25/24 07/13/24 Rx irbesartan 300 mg tablet 300 mg PO QAM #90 tabs 05/25/24 07/13/24 Rx metoprolol tartrate 50 mg tablet 50 mg PO BID #180 tabs 05/25/24 07/13/24 Rx apixaban 5 mg tablet (Eliquis) 5 mg PO BID #60 tabs 06/02/24 07/13/24 Rx Past Med/Surg History Problem List (Updated 07/13/24 @ 03:33 by Aldo Chavez MD) Right distal ureteral calculus Leukocytosis (Acute) Acute UTI (urinary tract infection) (Acute) Hydronephrosis with urinary obstruction due to ureteral calculus (Acute) Hydroureteronephrosis (Acute) Nephrolithiasis Chronic anticoagulation Duodenal ulcer Phlegm in throat LBBB (left bundle branch block) Non-sustained ventricular tachycardia Paroxysmal atrial fibrillation Frequent PVCs (Acute) Acute blood loss anemia Elevated troponin I level (Acute) Anemia (Acute) Chest pain (Acute) Acute upper gastrointestinal bleeding (Acute) Osteoarthritis of right hip Senile purpura Left shoulder pain Idiopathic polyneuropathy History of colon polyps Encounter for pre-operative examination Tubular adenoma (~12/04/16) repeat in 5 years Melanoma in situ (Chronic) Inhibited sexual excitement (Acute) Impaired fasting glucose (Chronic) Hypertension Hearing loss (Acute) Diverticulosis of colon (Acute) BPH (benign prostatic hyperplasia) (Acute) Hyperlipidemia Medical History Iron deficiency anemia Duodenal bulb ulcer Left bundle branch block (LBBB) Iron deficiency anemia Hx of chest pain Idiopathic polyneuropathy BPH (benign prostatic hyperplasia) Melanoma per pcp, on forehead, no bx Hemorrhoids Hypertension Paroxysmal atrial fibrillation (~12/2023) admit to [facility] with GI bleed, Saw [facility] Cardio 03/21/24 , had a Holter Monitor, no blood thinners Hx of transfusion of packed red blood cells (~12/2023) 6 units Nonsustained ventricular tachycardia (12/2023) during admit to [facility] 12/2023, following up [facility] Cardio 03/2024 / Holter Monitor Duodenal bulb ulcer (12/2023) Admit to [facility] 12/2023 with GI Bleed, transfused with 6 U PRBC's Diverticulosis Hx of colonic polyps Hx of gastrointestinal hemorrhage (~12/2023) Duodenal Ulcer, admit to [facility], 6 Units PRBC's Hyperlipidemia Surgical History Hx of colonoscopy with polypectomy Hx of esophagogastroduodenoscopy History of hernia repair (1999) Family History Father Coronary heart disease CHF (congestive heart failure) Mother Brain cancer Sister Cancer Brother No problems noted. Son Myocardial infarction, Onset Age: 43 from AMI age 50 Cancer esophageal Denies family history of Ovarian cancer Prostate cancer Breast cancer Colorectal cancer Social History Smoking Status: Never smoker Second Hand Exposure: No; Do You Dip or Chew Tobacco: No; Hx Alcohol Use: Yes Alcohol type: beer Alcohol Intake Frequency Comment: 2-3 beers per week Hx Substance Use: No Preferred Language: Cambodian Communication Ability: Effective Visual Impairment: No Limitations Hearing Ability: Normal Prescription Clerk Lenses Required: No Beliefs That Will Affect Care: None marital status: Current Living Situation: Alone current occupational status: retired Feels Safe at Home: No Is there a partner from a previous relationship who is making you feel unsafe now?: No Any Concerns about Your Family Situation: No Would You Like to Speak to Someone About Your Situation: No Childhood Exposure to Second-Hand Smoke: Yes Dental Care, Regularly: Yes Physical Activity Frequency: Daily Physical Activity Frequency Comment: walking or bicycle 60 minutes per workout Seatbelt Use: always Sunscreen Use: No Assistive Devices: Glasses Review of Systems Review of Systems: The patient denies chest pain, palpitations, shortness of breath, dyspnea on exertion, cough, lower extremity swelling, sore throat, fevers, chills, sweats, weight change, fatigue, nausea, vomiting, diarrhea , constipation, blood in urine or stool, dysuria, urinary frequency or urgency, lightheadedness, dizziness, headache, memory loss, loss of consciousness, rash, abnormal bruising or bleeding, imbalance, focal or generalized weakness, numbness or tingling in arms or legs, generalized arthralgias or myalgias, neck pain, or night sweats. The review of systems is otherwise negative other than for that already noted above, and at least 10 systems have been reviewed. Physical Exam Physical Exam: The patient is awake, alert and oriented 3, well developed and well nourished, normocephalic and atraumatic, lying in bed and in no acute distress. HEENT--PERRL, EOMI, mucous membranes and oropharynx mildly dry. Neck--supple. No JVD. No bruits. Thyroid normal, trachea midline, no adenopathy. Heart--normal S1 and S2. No murmurs, rubs or gallops. Lungs--clear bilaterally, no respiratory distress, no accessory muscle use. Abdomen--normal bowel sounds and soft. Nontender. Nondistended. Obese Extremities--no cyanosis or clubbing. No edema. There are good distal pulses b/l. Dermatologic--normal skin turgor, normal color, no abnormal lymph nodes, no rash. Neurologic--cranial nerves II through XII grossly intact. Rheumatologic--normal range of motion. Psychiatric--normal affect. Results & Data Results & Data Vital Signs (Past 12 Hours) Vital Signs Temp Pulse Resp BP Pulse Ox O2 Del Method 07/12/24 23:08 55 L 18 160/90 H 93 Room Air 07/12/24 22:06 36.7 C 54 L 16 150/77 H 96 Room Air 07/12/24 20:59 18 Room Air Laboratory Results Laboratory Results WBC 12.66 K/ul (4.8-10.8) H 07/12/24 21:10 RBC 5.12 M/uL (4.70-6.10) 07/12/24 21:10 Hgb 15.5 g/dl (14.0-18.0) 07/12/24 21:10 Hct 45.0 % (42.0-52.0) 07/12/24 21:10 MCV 87.9 fL (80.0-100.0) 07/12/24 21:10 MCH 30.3 pg (25.0-34.0) 07/12/24 21:10 MCHC 34.4 g/dL (32.0-36.0) 07/12/24 21:10 RDW Std Deviation 43.3 fL (36.4-46.3) 07/12/24 21:10 RDW Coeff of Lucero 13.5 % (11.5-14.5) 07/12/24 21:10 Plt Count 253 K/uL (130-400) 07/12/24 21:10 MPV 9.5 fL (9.4-12.4) 07/12/24 21:10 Immature Gran % (Auto) 0.4 % 07/12/24 21:10 Neut % (Auto) 88.3 % 07/12/24 21:10 Lymph % (Auto) 6.6 % 07/12/24 21:10 [place]cl[place] % (Auto) 4.4 % 07/12/24 21:10 Eos % (Auto) 0.1 % 07/12/24 21:10 Baso % (Auto) 0.2 % 07/12/24 21:10 Neut # (Auto) 11.18 K/uL (1.40-6.50) H 07/12/24 21:10 Lymph # (Auto) 0.84 K/uL (1.20-3.40) L 07/12/24 21:10 [place] # (Auto) 0.56 K/uL (0.11-0.59) 07/12/24 21:10 Eos # (Auto) 0.01 K/uL (0.00-0.50) 07/12/24 21:10 Baso # (Auto) 0.02 K/uL (0.00-0.20) 07/12/24 21:10 Immature Gran # (Auto) 0.05 K/uL (0.01-0.20) 07/12/24 21:10 Sodium 139 mmol/L (136-145) 07/12/24 21:10 Potassium 4.1 mmol/L (3.5-5.1) 07/12/24 21:10 Chloride 101 mmol/L (98-107) 07/12/24 21:10 Carbon Dioxide 28 mmol/L (21-32) 07/12/24 21:10 Anion Gap 10 (3-11) 07/12/24 21:10 BUN 21 mg/dl (6-23) 07/12/24 21:10 Creatinine 1.23 mg/dl (0.6-1.4) 07/12/24 21:10 Est Cr Clr Drug Dosing 67.3 ml/min 07/12/24 21:10 Est GFR ( Amer) 66.1 ml/min 07/12/24 21:10 Est GFR (Non-Af Amer) 57.1 ml/min 07/12/24 21:10 BUN/Creatinine Ratio 17.1 (10-20) 07/12/24 21:10 Glucose 144 mg/dl (70-99(Fasting)) H 07/12/24 21:10 Calcium 9.9 mg/dl (8.6-10.3) 07/12/24 21:10 Total Bilirubin 1.1 mg/dl (0.2-1.0) H 07/12/24 21:10 AST 22 U/L (13-39) 07/12/24 21:10 ALT 19 U/L (7-52) 07/12/24 21:10 Alkaline Phosphatase 76 U/L (34-104) 07/12/24 21:10 Total Protein 7.6 gm/dl (6.0-8.3) 07/12/24 21:10 Albumin 4.6 gm/dl (3.4-5.0) 07/12/24 21:10 Globulin 3.0 gm/dl (2.5-4.0) 07/12/24 21:10 Albumin/Globulin Ratio 1.5 (0.9-2) 07/12/24 21:10 Lipase 25 U/L (11-82) 07/12/24 21:10 Urine Color Yellow 07/12/24 21:35 Urine Appearance Cloudy (Clear) A 07/12/24:35 Urine pH 7.0 (4.5-7.5) 07/12/24 21:35 Ur Specific [place] 1.018 (1.000-1.030) 07/12/24 21:35 Urine Protein Negative (Negative) 07/12/24 21:35 Urine Glucose (UA) Negative (Negative) 07/12/24 21:35 Urine Ketones 2+ (Negative) H 07/12/24 21:35 Urine Blood 1+ (Negative) H 07/12/24 21:35 Urine Nitrite Negative (Negative) 07/12/24 21:35 Urine Bilirubin Negative (Negative) 07/12/24 21:35 Urine Urobilinogen Negative (Negative) 07/12/24 21:35 Ur Leukocyte Esterase 1+ (Negative) H 07/12/24 21:35 Urine WBC (Auto) 6-10 /hpf (0-5) H 07/12/24 21:35 Urine RBC (Auto) 11-20 /hpf (0-2) H 07/12/24 21:35 U Hyaline Cast (Auto) 0-2 /lpf (0-2) 07/12/24 21:35 U Epithel Cells (Auto) 0-2 /hpf (0-2) 07/12/24 21:35 Urine Bacteria (Auto) None Seen (None Seen) 07/12/24 21:35 Impressions Abdomen/Pelvis CT 07/12/24 21:34 Exam(s): CT ABDOMEN + PELVIS With Contrast IV Amt: 93 ml opti 320 EXAM: CT Abdomen and Pelvis With Intravenous Contrast CLINICAL HISTORY: rlq abd pain. TECHNIQUE: Axial computed tomography images of the abdomen and pelvis with intravenous contrast. CTDI is 28 mGy and DLP is 1443 mGy-cm. Automated exposure control was utilized for the study. A dose lowering technique was utilized adhering to the principles of ALARA. CONTRAST: Patient received 93 ml opti 320 of IV contrast COMPARISON: No relevant prior studies available. FINDINGS: Lung bases: Unremarkable. No mass. No consolidation. ABDOMEN: Liver: Unremarkable. No mass. Gallbladder and bile ducts: Unremarkable. No calcified stones. No ductal dilation. Pancreas: Unremarkable. No mass. No ductal dilation. Spleen: Unremarkable. No splenomegaly. Adrenals: Unremarkable. No mass. Kidneys and ureters: There is at least 3 individual distal right ureteral stones noted immediately cranial to the right UVJ. The stones measure up to 9 mm in diameter with the stone burden extending overlying of approximately 17 mm (series 300; image 63). There is moderate right hydroureteronephrosis with significant right perinephric fat stranding. Additional nonobstructive nephrolithiasis noted bilaterally. The largest stone involving the inferior pole calyx on the left measures 7.4 mm. No left-sided hydronephrosis. Stomach and bowel: Moderate distention stomach with retained oral contents. No gastric mucosal thickening. No evidence for bowel obstruction. No asymmetric bowel mucosal abnormality. Diverticulosis of the sigmoid colon. No definitive diverticulitis. PELVIS: Appendix: No findings to suggest acute appendicitis. Bladder: The bladder is mildly distended. No bladder wall thickening or additional bladder stones. Reproductive: Prostatic hypertrophy. ABDOMEN and PELVIS: Intraperitoneal space: Unremarkable. No free air. No significant fluid collection. Bones/joints: Multilevel degenerative changes throughout the lumbar spine. No acute osseous abnormality. No dislocation. Soft tissues: Unremarkable. Vasculature: Unremarkable. No abdominal aortic aneurysm. Lymph nodes: Unremarkable. No enlarged lymph nodes. IMPRESSION: There is at least 3 individual distal right ureteral stones noted immediately cranial to the right UVJ. The stones measure up to 9 mm in diameter with the stone burden extending overlying of approximately 17 mm (series 300; image 63). There is moderate right hydroureteronephrosis with significant right perinephric fat stranding. Electronically signed by: Arias Little MD 07/12/24 23:47 PM Code Status & VTE Plan Code Status Full code VTE Prophylaxis Plan VTE Prophylaxis will be ordered: Yes PG Care Time/CCT Total # of Minutes Spent Total Time Spent with Patient: Total time spent is greater than 50% in coordination of care (as documented) at patient's floor/unit and/or counseling patient: Coding Level of Care Code 03149 INT INP/OBS CARE 3/75MIN Diagnoses Hydronephrosis with urinary obstruction due to ureteral calculus N13.2 Right distal ureteral calculus N20.1 Acute UTI (urinary tract infection) N39.0 Hydroureteronephrosis N13.30 Chronic anticoagulation Z79.01 Duodenal ulcer K26.9 Non-sustained ventricular tachycardia I47.29 Paroxysmal atrial fibrillation I48.0 Idiopathic polyneuropathy G60.9 BPH (benign prostatic hyperplasia) N40.0 Hyperlipidemia, unspecified hyperlipidemia type E78.5 Hyperlipidemia type: unspecified (11) Hyperlipidemia Hyperlipidemia type: unspecified Qualified Code(s): E78.5 - Hyperlipidemia, unspecified
[2024-07-13] MEDS ORDERED: ONDANSETRON INJ 2 MG/ML 2 ML VIAL IV PRN ×2 (01:55→14:26)
[2024-07-13] MEDS: SODIUM CHLORIDE 0.9% 1,000 ML IV SCH (02:07)
[2024-07-13] MEDS: MoRPHine SULFATE 4 MG/ML 1 ML CARP\\VIAL IV PRN (02:18)
[2024-07-13] MEDS: KETOROLAC 30 MG/ML VIAL IV PRN (03:55)
[2024-07-13] MEDS: TAMSULOSIN HCL 0.4 MG CAP PO SCH (07:39)
[2024-07-13] MEDS: METOPROLOL TARTRATE 25 MG TAB PO SCH (07:39)
--- NOTE | 2024-07-13 09:24 | Urology Progress Note ---
Date of Service July 13, 2024 Assessment & Plan (1) Right distal ureteral calculus: (2) Hydronephrosis with urinary obstruction due to ureteral calculus: Plan: Follow-up of distal right ureteral calculi He is afebrile and hemodynamically stable Lab work reviewedcreatinine 1.65, WBC 11.32, hemoglobin 14.5 He denies flank or abdominal pain at present We discussed that he is less likely to spontaneously pass his ureteral stones given their size Discussed options for stone management including right ureteral stent while inpatient with stone treatment at a later date versus outpatient surgical options if pain is controlled Ureteral stents were discussed in detail After discussion, he prefers outpatient stone surgery I was then contacted by his nursing that he changed his mind I returned to speak to him and he would like to proceed with right ureteral stent placement today He is aware that stone treatment will likely take place at a later date Proceed to the OR for cystoscopy and right ureteral stent placement Risks and benefits of procedure to be reviewed with patient by Dr. Rubio Keep NPO for procedure Continue with IV ceftriaxone preoperatively Continue supportive care and pain management Admission and Anticipated Discharge Date Admission Date: July 13, 2024 Supervising Physician Co-Signing Physician Notes Discussed patient with ROBERTO. Agree with plan. Saw patient personally. Will proceed to OR for cystoscopy, right retrograde pyelogram right ureteral stent placement. Risk and benefits discussed. Consent obtained. Patient marked. Subjective Patient seen examined at bedside this morning. He is resting in bed. Denies flank or abdominal pain at present. Voiding spontaneously without difficulty. No dysuria or hematuria. No nausea, vomiting, fever or chills. This is his first stone. Review of Systems Constitutional: as per Subjective / HPI Genitourinary: + as per Subjective / HPI Physical Exam Constitutional: well developed and well nourished; no acute distress Respiratory: normal respiratory effort; no respiratory distress and no labored breathing Gastrointestinal (Abdomen): Inspection/Auscultation: abdomen normal to inspection Musculoskeletal: Head/Neck/Chest: normocephalic Neurologic: moves all extremities and awake Psychiatric: Orientation: alert and oriented x 3 Results & Data Vital Signs (Past 12 Hours) Vital Signs Temp Pulse Pulse Resp BP Pulse Ox O2 Del Method 07/13/24 08:05 57 L 07/13/24 07:52 36.8 C 77 18 128/74 97 Room Air 07/13/24 02:52 56 L 07/13/24 02:26 Room Air 07/13/24 01:00 62 18 145/89 H 94 Room Air 07/12/24 23:08 55 L 18 160/90 H 93 Room Air 07/12/24 22:06 36.7 C 54 L 16 150/77 H 96 Room Air PG Care Time/CCT Total # of Minutes Spent Total Time Spent with Patient: Total time spent is greater than 50% in coordination of care (as documented) at patient's floor/unit and/or counseling patient: Coding Level of Care Code 74316 SUB INP/OBS CARE 2/35MIN Diagnoses Right distal ureteral calculus N20.1 Hydronephrosis with urinary obstruction due to ureteral calculus N13.2
[2024-07-13 10:23] LABS: Basophils # (auto) 0.02 K/uL (0.00-0.20); Basophils % (auto) 0.2 %; Eosinophils # (auto) 0.03 K/uL (0.00-0.50); Eosinophils % (auto) 0.3 %; Hematocrit (blood only) 43.4 % (42.0-52.0); Hemoglobin 14.5 g/dl (14.0-18.0); Immature Granulocytes # (auto) 0.04 K/uL (0.01-0.20); Immature Granulocytes % (auto) 0.4 %; Lymphocytes # (auto) 1.39 K/uL (1.20-3.40); Lymphocytes % (auto) 12.3 %; Mean Corpuscular Hgb Conc 33.4 g/dL (32.0-36.0); Mean Corpuscular Volume 89.7 fL (80.0-100.0); Mean Platelet Volume 9.5 fL (9.4-12.4); Monocytes # (auto) 1.11 K/uL (0.11-0.59); Monocytes % (auto) 9.8 %; Neutrophils # (auto) 8.73 K/uL (1.40-6.50); Platelet Count 233 K/uL (130-400); RDW Coefficient of Variation 13.6 % (11.5-14.5); RDW Standard Deviation 44.2 fL (36.4-46.3); Red Blood Count 4.84 M/uL (4.70-6.10); White Blood Count 11.32 K/ul (4.8-10.8)
[2024-07-13 10:45] LABS: BUN Creatinine Ratio 13.3 (10-20); Calcium 8.8 mg/dl (8.6-10.3); Creatinine Clr Calc Pharmacy 50.2 ml/min; Est GFR (African American) 46.4 ml/min; Potassium 4.4 mmol/L (3.5-5.1)
[2024-07-13] MEDS: PANTOprazole 40 MG in SYRINGE 0 ML IV SCH (12:06)
[2024-07-13] MEDS: ACETAMINOPHEN 1000 MG/100 ML IV IV PRN (12:12)
[2024-07-13] MEDS ORDERED: LIDOCAINE 2% 2 ML VIAL/AMP(20MG/ML) INFIL ONE (14:26)
[2024-07-13] MEDS ORDERED: ePHEDrine sulfate 50 MG/ML AMP IV PRN ×2 (14:26→14:47)
[2024-07-13] MEDS ORDERED: fentaNYL citrate PF 100 MCG/2 ML VIAL ONE (14:26)
[2024-07-13] MEDS ORDERED: MIDAZOLAM HCL 1 MG/ML 2ML VIAL ONE (14:26)
[2024-07-13] MEDS ORDERED: fentaNYL citrate PF 100 MCG/2 ML VIAL IV PRN (14:26)
[2024-07-13] MEDS ORDERED: ONDANSETRON INJ 2 MG/ML 2 ML VIAL ONE (14:26)
[2024-07-13] MEDS ORDERED: ATROPINE SULFATE 0.1 MG/ML 10ML SYR IV PRN ×2 (14:26→14:47)
[2024-07-13] MEDS ORDERED: PROPOFOL IV EMULSION 10 MG/ML 20 ML VIAL IV ONE (14:26)
[2024-07-13] MEDS ORDERED: DEXAMETHASONE SOD INJ 4 MG/ML VIAL ONE (14:26)
--- NOTE | 2024-07-13 14:26 | Anesthesiology Consultation ---
Date of Service July 13, 2024 Assessment & Plan (1) Encounter for pre-operative examination: Chart Review Chart Review: Acceptable Risk for Surgery and Patient NOT seen in Pre Admission Testing Consults Requested none History Surgery Operation Date: 07/13/24 09:25 Proposed Procedures p Cystoscopy, Right Ureteral Stent Placement - Maurilio Rubio MD Height/Weight Height: 6 ft Weight: 113.1 kg Allergies Allergy/AdvReac Type Severity Reaction Status Date / Time No Known Allergies Allergy Verified 07/06/24 10:12 Medications Home Medications Medication Instructions Recorded Confirmed Last Taken multivitamin (Daily Multi-Vitamin 1 tab PO QAM 11/17/19 07/13/24 07/12/24 tablet) fluoride (sodium) 1.1 % dental 1 applic dental BID 09/09/23 07/13/24 07/12/24 paste ferrous sulfate 142 mg (45 mg 142 mg PO QAM 01/21/24 07/13/24 07/12/24 iron) tablet,extended release pantoprazole 40 mg tablet,delayed 40 mg PO QAM 05/12/24 07/13/24 07/12/24 release (Protonix) atorvastatin 20 mg tablet 20 mg PO QPM #90 tabs 05/25/24 07/13/24 07/12/24 irbesartan 300 mg tablet 300 mg PO QAM #90 tabs 05/25/24 07/13/24 07/12/24 metoprolol tartrate 50 mg tablet 50 mg PO BID #180 tabs 05/25/24 07/13/24 07/12/24 apixaban 5 mg tablet (Eliquis) 5 mg PO BID #60 tabs 06/02/24 07/13/24 07/12/24 Active Medications Generic Name Dose Route Start Last Admin Trade Name Freq PRN Reason Stop Dose Admin Acetaminophen 1,000 mg 07/13/24 01:55 07/13/24 12:12 Acetaminophen 1000 Mg/100 Ml Iv IV 07/16/24 01:54 1,000 mg Q8H PRN Administration Pain or Fever Pantoprazole Sodium 40 mg/ 10 mls @ 5 mls/min 07/13/24 11:00 07/13/24 12:06 Syringe IV 08/12/24 10:59 5 mls/min DAILY@1100 ANA M Administration Ketorolac Tromethamine 15 mg 07/13/24 01:55 07/13/24 03:55 Ketorolac 30 Mg/Ml Vial IV 07/18/24 01:54 15 mg Q6H PRN Administration Moderate Pain (Scale 4, 5, 6) Metoprolol Tartrate 25 mg 07/13/24 09:00 07/13/24 07:39 Metoprolol Tartrate 25 Mg Tab PO 08/12/24 08:59 25 mg BID ANA M Administration Morphine Sulfate 4 mg 07/13/24 01:55 07/13/24 02:18 Morphine Sulfate 4 Mg/Ml 1 Ml Carp\\Vial IV 07/27/24 01:54 4 mg Q3H PRN Administration Severe Pain (Scale 7, 8, 9,10) Tamsulosin HCl 0.4 mg 07/13/24 09:00 07/13/24 07:39 Tamsulosin Hcl 0.4 Mg Cap PO 08/12/24 08:59 0.4 mg QAM ANA M Administration Past Medical History Medical History Iron deficiency anemia Duodenal bulb ulcer Left bundle branch block (LBBB) Iron deficiency anemia Hx of chest pain Idiopathic polyneuropathy BPH (benign prostatic hyperplasia) Melanoma per pcp, on forehead, no bx Hemorrhoids Hypertension Paroxysmal atrial fibrillation (~12/2023) admit to [facility] with GI bleed, Saw [facility] 03/21/24 , had a Holter Monitor, no blood thinners Hx of transfusion of packed red blood cells (~12/2023) 6 units Nonsustained ventricular tachycardia (12/2023) during admit to [facility] 12/2023, following up [facility] 03/2024 / Holter Monitor Duodenal bulb ulcer (12/2023) Admit to [facility] 12/2023 with GI Bleed, transfused with 6 U PRBC's Diverticulosis Hx of colonic polyps Hx of gastrointestinal hemorrhage (~12/2023) Duodenal Ulcer, admit to [facility], 6 Units PRBC's Hyperlipidemia Past Family History Family History Father Coronary heart disease CHF (congestive heart failure) Mother Brain cancer Sister Cancer Brother No problems noted. Son Myocardial infarction, Onset Age: 43 from AMI age 50 Cancer esophageal Denies family history of Ovarian cancer Prostate cancer Breast cancer Colorectal cancer Past Surgical History Surgical History Hx of colonoscopy with polypectomy Hx of esophagogastroduodenoscopy History of hernia repair (1999) Social History Smoking Status: Never smoker Do You Dip or Chew Tobacco: No Hx Alcohol Use: Yes Alcohol type: beer alcohol intake frequency: a few times a week Alcohol Intake Frequency Comment: Pt. states he has "4-5 beers per week". Hx Substance Use: No substance use type: does not use Physical Exam Vital Signs Last Vital Signs Temp 98.2 F 07/13/24 11:24 Pulse 68 07/13/24 11:24 Resp 20 07/13/24 11:24 BP 117/60 07/13/24 11:24 Pulse Ox 96 07/13/24 11:24 O2 Del Method Room Air 07/13/24 11:24 Testing Laboratory Results 07/13/24 10:06 07/13/24 10:06 Urine Color Yellow 07/12/24 21:35 Urine Appearance Cloudy (Clear) A 07/12/24 21:35 Urine pH 7.0 (4.5-7.5) 07/12/24 21:35 Ur Specific [place] 1.018 (1.000-1.030) 07/12/24 21:35 Urine Protein Negative (Negative) 07/12/24 21:35 Urine Glucose (UA) Negative (Negative) 07/12/24 21:35 Urine Ketones 2+ (Negative) H 07/12/24 21:35 Urine Nitrite Negative (Negative) 07/12/24 21:35 Ur Leukocyte Esterase 1+ (Negative) H 07/12/24 21:35 Urine WBC (Auto) 6-10 /hpf (0-5) H 07/12/24 21:35 Urine RBC (Auto) 11-20 /hpf (0-2) H 07/12/24 21:35 U Hyaline Cast (Auto) 0-2 /lpf (0-2) 07/12/24 21:35 U Epithel Cells (Auto) 0-2 /hpf (0-2) 07/12/24 21:35 Urine Bacteria (Auto) None Seen (None Seen) 07/12/24 21:35 Electrocardiogram Date: 12/10/23 Findings: + NSR @ and + LBBB Echocardiogram Date: 12/11/23 EF: 65-70 LV Function: normal
--- NOTE | 2024-07-13 15:29 | Operative Report ---
PG Post Operative Report Pre & Post Diagnosis Right urolithiasis Operation Date: 07/13/24 09:25 <No data on this case meets the specified criteria> Right urolithiasis I identified the patient and participated in the time-out.: Yes Procedure Cystoscopy, right retrograde pyelogram with radiographic interpretation, right ureteral stent placement Operation Date: 07/13/24 09:25 <No data on this case meets the specified criteria> Surgeon Maurilio Rubio MD Obstetrics Gynecology Md None Estimated Blood Loss 0 Findings Consistent with Post-Op Diagnosis Specimens None Drains 6x28cm right stent Anesthesia Type MAC Complications none Indications 74-year-old male with what appears to be multiple distal obstructing ureteral calculi. Options given and patient would like a stent. Description of Procedure Billing codes: 20488 65563 with modifier 26 After informed consent was obtained, the patient was transported operative suite. MAC anesthesia was induced. The patient was placed in dorsolithotomy position prepped and draped in a sterile fashion. They received preoperative ceftriaxone for antibiotic prophylaxis. An appropriate surgical timeout was performed. A 22 [place]an rigid scope was inserted per urethra into the bladder. Pascal cystosco py revealed no stones or lesions. I turned my attention the right ureteral orifice and intubated this with a 5 Zimbabwean open-ended catheter. A right retrograde pyelogram was shot which showed mild hydronephrosis. A sensor wire was advanced into the kidney and confirmed fluoroscopically. A 6 [place]an by 28 cm right ureteral stent was deployed with a good proximal coil in the renal pelvis and a good distal coil noted in the bladder, confirmed fluoroscopically and under direct visualization, respectively. The bladder was emptied and the scope was removed. This concluded the end of the case. All counts were correct at the end of the case. I was present, scrubbed, and actively participated for the entire to the procedure. I attest to the content of the Intraoperative Record and any orders documented therein. Any exceptions are noted below.
--- NOTE | 2024-07-13 15:42 | Fluoroscopy Report ---
FL retrograde includes kub CLINICAL HISTORY: RT STENT COMPARISON STUDY: None. FLUOROSCOPY TIME: 9.6 seconds. FLUOROSCOPY IMAGES: 2 Ka,r: 3.3 mGy FINDINGS: Retrograde opacification of the right renal collecting system with placement of a right ure teral stent. Only the proximal portion of the stent is identified and appears in good position. IMPRESSION: Fluoroscopic assistance as above. ACT 112: Negative or not required by law. Electronically signed by: Hamlet Orellana M.D. 07/13/2024 3:41 PM
--- NOTE | 2024-07-13 15:47 | Anesthesiology Progress Note ---
Date of Service July 13, 2024 Anesthesia Post Procedure Vital Signs Vital Signs: Temp Pulse Pulse Pulse Resp BP BP 07/13/24 15:35 62 62 H 104/58 L 07/13/24 15:28 96.8 F L 69 16 107/57 L 07/13/24 11:24 98.2 F 68 20 117/60 07/13/24 08:05 57 L 07/13/24 07:52 98.2 F 77 18 128/74 07/13/24 02:52 56 L 07/13/24 02:26 07/13/24 01:00 62 18 145/89 H 07/12/24 23:08 55 L 18 160/90 H 07/12/24 22:06 98.1 F 54 L 16 150/77 H 07/12/24 20:59 18 Pulse Ox O2 Del Method O2 Flow Rate 07/13/24 15:35 62 L Nasal Cannula 2 07/13/24 15:28 98 Nasal Cannula 3 07/13/24 11:24 96 Room Air 07/13/24 08:05 07/13/24 07:52 97 Room Air 07/13/24 02:52 07/13/24 02:26 Room Air 07/13/24 01:00 94 Room Air 07/12/24 23:08 93 Room Air 07/12/24 22:06 96 Room Air 07/12/24 20:59 Room Air Pain Intensity Right Lower Abdomen: Pain Intensity: 1 Transfer of Care Handoff Completed per policy Notes Mental Status: alert / awake / arousable and participated in evaluation Patient Amnestic to Procedure: Yes Nausea / Vomiting: adequately controlled Pain: adequately controlled Airway Patency, RR, SpO2: stable & adequate BP & HR: stable & adequate Hydration State: stable & adequate Anesthetic Complications: no major complications apparent and Pt Satisfied with anesthetic care
--- NOTE | 2024-07-13 15:54 | Anesthesiology Progress Note ---
Date of Service July 13, 2024 Anesthesia Post Procedure Vital Signs Vital Signs: Temp Pulse Pulse Pulse Resp BP BP 07/13/24 15:47 54 L 07/13/24 15:45 60 14 106/62 07/13/24 15:35 62 12 104/58 L 07/13/24 15:28 36 C L 69 16 107/57 L 07/13/24 11:24 36.8 C 68 20 117/60 07/13/24 08:05 57 L 07/13/24 07:52 36.8 C 77 18 128/74 07/13/24 02:52 56 L 07/13/24 02:26 07/13/24 01:00 62 18 145/89 H 07/12/24 23:08 55 L 18 160/90 H 07/12/24 22:06 36.7 C 54 L 16 150/77 H 07/12/24 20:59 18 Pulse Ox O2 Del Method O2 Flow Rate 07/13/24 15:47 07/13/24 15:45 97 Nasal Cannula 2 07/13/24 15:35 99 Nasal Cannula 2 07/13/24 15:28 98 Nasal Cannula 3 07/13/24 11:24 96 Room Air 07/13/24 08:05 07/13/24 07:52 97 Room Air 07/13/24 02:52 07/13/24 02:26 Room Air 07/13/24 01:00 94 Room Air 07/12/24 23:08 93 Room Air 07/12/24 22:06 96 Room Air 07/12/24 20:59 Room Air Pain Intensity Right Lower Abdomen: Pain Intensity: 1 Transfer of Care Handoff Completed per policy Notes Mental Status: alert / awake / arousable and participated in evaluation Patient Amnestic to Procedure: Yes Nausea / Vomiting: adequately controlled Pain: adequately controlled Airway Patency, RR, SpO2: stable & adequate BP & HR: stable & adequate Hydration State: stable & adequate Anesthetic Complications: no major complications apparent and Pt Satisfied with anesthetic care
[2024-07-13 16:06] VITALS: RESP 18
--- NOTE | 2024-07-13 17:21 | History & Physical Bridge Note ---
Date of Service July 13, 2024 History & Physical Bridge Note I have examined the patient, reviewed the History & Physical and in the interval since the performance of the History & Physical I have noted the following changes of clinical significance: Patient developed an acute kidney injury this morning with creatinine up to 1.65. Afebrile, leukocytosis improving. He went to the operating room with urology and had a right ureteral stent placed and did well with that. I saw him after return from the operating room. He only complained of a mild sore throat from the intubation but otherwise was feeling well. He is eating his dinner. Denies chest pains or shortness of breath. Telemetry with normal sinus rhythm, IVCD, rates in the 50s to 60s Vitals reviewed Gen: AAOx3, NAD HEENT: Anicteric sclerae CV: RRR no mgr nl S1S2 Pulm: CTAB no wcr CBC and BMP reviewed 74-year-old male here with right sided ureterolithiasis with hydronephrosis and acute kidney injury Now status post right ureteral stent Urinalysis borderline positive for infection but no bacteria. No urine culture sent from the initial urinalysis. Urine culture ordered but not yet collected Okay to resume Eliquis, statin Change IV Tylenol to p.o. Tylenol Change IV Protonix to p.o. Protonix Advance diet to regular Discontinue ketorolac given acute kidney injury Continue tamsulosin Follow BMP and CBC in the morning Expect discharge tomorrow if renal function improves Discussed care with urology
[2024-07-13] MEDS ORDERED: ACETAMINOPHEN 325 MG TAB PO PRN (17:30)
[2024-07-13] MEDS: APIXABAN 5 MG TABLET PO SCH (20:00)
[2024-07-13] MEDS: ATORVASTATIN 20 MG TAB PO SCH (20:00)
[2024-07-13] MEDS: cefTRIAXone SODIUM 2,000 MG/50 ML BAG IV SCH (22:26)
[2024-07-14 07:26] VITALS: BP 126/72; PULSE 66; TEMP 98.1; O2SAT 93
[2024-07-14 07:41] LABS: Basophils # (auto) 0.01 K/uL (0.00-0.20); Basophils % (auto) 0.1 %; Hematocrit (blood only) 43.1 % (42.0-52.0); Hemoglobin 14.5 g/dl (14.0-18.0); Immature Granulocytes # (auto) 0.04 K/uL (0.01-0.20); Immature Granulocytes % (auto) 0.4 %; Lymphocytes # (auto) 0.82 K/uL (1.20-3.40); Lymphocytes % (auto) 8.3 %; Mean Corpuscular Hemoglobin 30.5 pg (25.0-34.0); Mean Corpuscular Hgb Conc 33.6 g/dL (32.0-36.0); Mean Corpuscular Volume 90.7 fL (80.0-100.0); Mean Platelet Volume 10.1 fL (9.4-12.4); Monocytes # (auto) 0.39 K/uL (0.11-0.59); Neutrophils # (auto) 8.61 K/uL (1.40-6.50); Neutrophils % (auto) 87.2 %; Platelet Count 246 K/uL (130-400); RDW Coefficient of Variation 13.4 % (11.5-14.5); RDW Standard Deviation 44.9 fL (36.4-46.3); Red Blood Count 4.75 M/uL (4.70-6.10); White Blood Count 9.87 K/ul (4.8-10.8)
--- NOTE | 2024-07-14 07:49 | Urology Progress Note ---
Date of Service July 14, 2024 Assessment & Plan (1) Right distal ureteral calculus: Plan: POD #1 status post cystoscopy and right ureteral stent placement Afebrile, hemodynamically stable Labscreatinine improved to 1.29, WBC 9.87, hemoglobin 14.5 Urine culture collected yesterday for preoperative planning is pending Tolerating stent with minimal bother He is set up for outpatient stone surgery next week Okay to discharge from perspective Recommend tamsulosin, Pyridium and pain management as needed Expected clinical course reviewed, all questions answered will sign off, please contact our service with any additional questions or concerns Admission and Anticipated Discharge Date Admission Date: July 13, 2024 Subjective Patient seen and examined at bedside this morning. He is awake and sitting up in bed eating breakfast. Denies flank pain. Voiding without difficulty. Notes mild dysuria and darker urine postprocedure. He feels ready to go home this morning. Review of Systems Constitutional: as per Subjective / HPI Genitourinary: + as per Subjective / HPI Physical Exam Constitutional: well developed and well nourished; no acute distress Respiratory: normal respiratory effort; no respiratory distress and no labored breathing Gastrointestinal (Abdomen): Inspection/Auscultation: abdomen normal to inspection Musculoskeletal: Head/Neck/Chest: normocephalic Neurologic: moves all extremities and awake Psychiatric: Orientation: alert and oriented x 3 Results & Data Vital Signs (Past 12 Hours) Vital Signs Temp Pulse Pulse Resp BP Pulse Ox Pulse Ox 07/14/24 07:25 36.7 C 66 18 126/72 93 07/14/24 02:43 36.8 C 55 L 18 126/73 95 07/14/24 01:55 95 07/14/24 00:38 57 L 07/13/24 22:38 36.7 C 61 18 127/71 95 07/13/24 20:30 O2 Del Method O2 Del Method O2 Flow Rate 07/14/24 07:25 Room Air 07/14/24 02:43 Nasal Cannula 2 07/14/24 01:55 Room Air 07/14/24 00:38 07/13/24 22:38 Nasal Cannula 2 07/13/24 20:30 Nasal Cannula 2 PG Care Time/CCT Total # of Minutes Spent Total Time Spent with Patient: Total time spent is greater than 50% in coordination of care (as documented) at patient's floor/unit and/or counseling patient: Coding Level of Care Code 92905 SUB INP/OBS CARE 11/26MIN Diagnoses Right distal ureteral calculus N20.1
[2024-07-14 08:06] LABS: Albumin Level 4.1 gm/dl (3.4-5.0); BUN Creatinine Ratio 19.4 (10-20); Calcium 9.1 mg/dl (8.6-10.3); Creatinine Clr Calc Pharmacy 64.2 ml/min; Est GFR (African American) 62.4 ml/min; Est GFR (Non-African American) 53.9 ml/min; Magnesium 2.4 mg/dl (1.7-2.4); Phosphorus 3.4 mg/dl (2.5-4.9); Potassium 4.2 mmol/L (3.5-5.1)
[2024-07-14] MEDS: PANTOprazole 40 MG TAB PO SCH (08:47)
--- NOTE | 2024-07-14 10:48 | Discharge Summary ---
Discharge Summary Date of Service July 14, 2024 Principal Dx & Hospital Course #1 = Principal Diagnosis (1) Hydronephrosis with urinary obstruction due to ureteral calculus: P/w right flank pain, found to have at least 3 distal right ureteral calculi/m oderate right hydroureteronephrosis Seen by Urology and had right ureteral stent placed. UA questionable for UTI and did have mild leukocytosis, no fevers or evidence of pyelo on imaging Treated with ceftriaxone x 2 doses here and will dc with cefdinir x 3 more days while urine cx pending--> will call if urine culture returns with organism resistant to cefdinir COntinue Tamsulosin 0.4 mg p.o. 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 tach-had 2-3 seconds of brief Afib with bundle branch block on tele on day of discharge that was asymptomatic Continue Eliquis Resume usual dose of metoprolol as HR now in 80s and had paroxysm of Afib here on lower dose metorpolol f/u outpt with Cardiology routinely (4) Acute UTI (urinary tract infection): as above, questionable giving empiric abx while awaiting urine cx after discharge (5) Duodenal ulcer: history of such continue PPI (6) Hyperlipidemia: continue statin Plan Dispo-dc to home Notes For Next Care Provider Follow up with Urology in 1 week for stone and stent management Medication Changes From Visit Added cefdinir 300mg po bid x 3 days Added pyridium prn Added tamsulosin 0.4mg po daily x 2 weeks Admission HPI Per Admitting Provider The patient is a 74-year-old male with a past medical history including duodenal ulcer, left bundle branch block, nonsustained V. tach, paroxysmal atrial fibrillation on chronic anticoagulation with apixaban, idiopathic polyneuropathy, melanoma in situ, hearing loss, BPH, hyperlipidemia. He presents to the emergency department with acute onset of pain as noted above. He did also have the sense of needing to move his bowels when the pain acutely developed. Workup in the emergency department included a CT scan of abdomen pelvis, which showed a least 3 distal right ureteral stones near the right UVJ, and moderate right hydroureteronephrosis. Patient has had no previous occurrence of kidney stones. Discharge Exam Constitutional WD/WN, vitals as above Respiratory normal respiratory effort, lungs clear to auscultation Cardiovascular RRR, no murmur, no edema Gastrointestinal (Abdomen) normal bowel sounds, soft, nontender, no hepatosplenomegaly Psychiatric A+Ox3, euthymic affect Discharge Plan Discharge Items Patient Disposition: Home - Self-Care Reason For Visit: DIST R URETERAL STONE, MOD R HYDRO Discharge Diagnosis: Right sided ureterolithiasis Acute kidney injury-resolved Condition on Discharge: Good Activity: Resume your previous activity Non-emergency contact: Primary Care Provider and Urologist Call non-emergency contact if: you have any medication questions, your symptoms worsen, your pain is not controlled and you have a fever Follow-up/Referrals: Art Alatorre, [Primary Care Provider] - (Follow-up within 1 to 2 weeks) Diet: Heart Healthy Addtl Attending Provider Instructions: Please keep your follow-up appointment for management of your kidney stone with urology as planned next week. Continue on the tamsulosin, and you can take Pyridium as needed for bladder pain. Please finish out 3 more days of an antibiotic in case of infection Will your urine culture is still pending. Pending Studies at Discharge: Yes (Urine culture) Stand-Alone Forms: My [facility] Medications and DC Order Prescriptions: New acetaminophen 325 mg Tablet 650 mg PO Q4H PRN (Reason: pain) Qty: 30 0RF Rx Instructions: [id number]-vzrhepe tamsulosin 0.4 mg Capsule 0.4 mg PO QAM Qty: 14 0RF phenazopyridine [Pyridium] 100 mg tablet 100 mg PO Q8H PRN (Reason: Bladder pain) Qty: 10 0RF cefdinir 300 mg capsule 300 mg PO BID Qty: 6 0RF Continued atorvastatin 20 mg tablet 20 mg PO QPM Qty: 90 3RF irbesartan 300 mg tablet 300 mg PO QAM Qty: 90 3RF metoprolol tartrate 50 mg tablet 50 mg PO BID Qty: 180 3RF fluoride (sodium) 1.1 % paste 1 applic dental BID multivitamin [Daily Multi-Vitamin] Tablet 1 tab PO QAM Eliquis 5 mg tablet 5 mg PO BID Qty: 60 11RF ferrous sulfate 142 mg (45 mg iron) tablet extended release 142 mg PO QAM pantoprazole [Protonix] 40 mg tablet,delayed release (DR/EC) 40 mg PO QAM Discharge Orders: Discharge Order (Routine); Ordered 07/14/24 Ordered By: Marissa Sibley/Other Patient Handouts: Identifying Kidney Stones Admission Data Admit Date/Time: 07/13/24 00:57 Attending Provider: Marissa Rollins Admit Provider: Aldo Chavez Primary Care Provider: Art Alatorre Other Providers: Steve Rascon; Aldo Chavez Hospital Stay Data Consultations 07/13/24 00:04 Consult Urology Stat 07/13/24 00:26 ED Decision to Admit Stat Procedures Performed Operation Date: 07/13/24 09:25 Actual Procedures p Cystoscopy, Retrograde Pyelogram, Right Ureteral Stent Placement(Right) - Maurilio Rubio MD Diagnostic Imagining Performed 07/12/24 21:34 CT Abd and Pelvis [CT abd pelvis IV con only] Stat 07/13/24 FL retrograde includes kub Routine Pending Results Patient Have Any Pending Studies at Discharge: Yes (Urine culture) Discharge Instructions Given to Patient (Per Discharging Provider) Please keep your follow-up appointment for management of your kidney stone with urology as planned next week. Continue on the tamsulosin, and you can take Pyridium as needed for bladder pain. Please finish out 3 more days of an antibiotic in case of infection Will your urine culture is still pending. Total Time Total Time Spent Total Time Spent (In Minutes): 35 min Total Time Includes: Examination of the Patient, Discharge Planning, Medication Reconciliation and Communication With Other Providers (Urology LABOR RELATIONS OFFICER) Coding Level of Care Code 30747 INP/OBS DISCH >30 MIN Diagnoses Hydronephrosis with urinary obstruction due to ureteral calculus N13.2 DANNI (acute kidney injury) N17.9 Paroxysmal atrial fibrillation I48.0 Acute UTI (urinary tract infection) N39.0 Duodenal ulcer K26.9 Hyperlipidemia, unspecified hyperlipidemia type E78.5 Hyperlipidemia type: unspecified
== END 2024-07-14 11:48 | disposition home or self-care (01) | DRG 660 ==
LOC: ED 20:57 → SUATTDRO 07-13 00:57 → 2S 07-13 00:57